=== PATIENT | female | born 1995 | race Caucasian/White ===

== ENCOUNTER 2019-09-30 12:42 | Emergency (ER) | payer OTHER, MEDICAID, SELFPAY ==
[2019-09-30 12:43] VITALS: BP 123/91; PULSE 82; RESP 16; TEMP 36.6; O2SAT 98; BMI 30.8
--- NOTE | 2019-09-30 12:50 | ED.RN ---
this rn contacted [facility] per computer inf. they state pt ,ay not require and request we call bart sierra. this rn calls no answer
--- NOTE | 2019-09-30 13:09 | ED.VIS.GEN ---
History of Present Illness Chief Complaint: Wound Informant: Patient Onset: Today Context: Sudden Onset Timing: Continuous Quality: Pain dorsal left hand over third metacarpal Location: dorsal left hand over third metacarpal Current Severity: Mild Maximum Severity: Mild Worsened by: Staple Relieved by: Nothing Associated Symptoms: No paresthesia, anesthesia motor weakness Narrative: Patient is a 24-year-old [id number] female who presents with stable dorsal surface left hand over the third metacarpal bone. This occurred at work. Tetanus was 3 years ago. She has no other complaints. Prior similar symptoms: No Recent Illness/Hospitalization: No - Past Medical History (1) No significant past medical history Status: Acute Past Medical History - Allergies and Home Meds Allergies/Adverse Reactions: Allergies fructose Adverse Reaction (Verified 09/30/19 12:47) Vomiting lactose Adverse Reaction (Verified 09/30/19 12:47) Vomiting Primary Care Physician: Chaparro Chung DO [Primary Care Provider] - Prior records reviewed: No Past Medical History: None Surgical History: no surgical history Lives: With Family Smoking Status: Never smoker Alcohol: None Drugs: None Review of Systems Musculoskeletal: Reports: Extremity Pain. Denies: Myalgias, Arthralgias, Neck pain, Back pain, Swelling Skin: Reports: Wounds. Denies: Rash, Abscess, Abrasions Neurological: Denies: Weakness, Parasthesia, Numbness Hematologic: Denies: Easy bruising, Easy bleeding Allergy: Denies: Uticaria, Swelling of the mouth Physical Exam Vital Signs/Narrative: Vital Signs Temp Pulse Resp BP Pulse Ox 09/30/19 12:43 98 F 82 16 123/91 H 98 Inital Vital Signs reviewed: Yes General: Well nourished, Well developed, No Acute Distress Head: Normocephalic, Atraumatic Eyes: Perrl, EOMI. Negative for: Pale conjunctiva ENT: Moist mucous membranes, No rhinorrhea Cardiovascular: Regular rate, Regular rhythm Respiratory: No distress Extremities: No edema, - - Staple noted dorsal surface left hand. There is no evidence of infection. She is able to extend and flex the long finger. Sensations intact. Capillary refill is intact.. Negative for: Nontender Skin: Normal color, No rash, Trauma Neurological: Alert, Oriented x3, Cranial nerves II-XII grossly intact, Normal Strength, Normal Sensation Psychological: Normal affect, Normal Mood Diagnostic/Tx/Re-eval - Medical Decision Making Patient with staple that was easily removed without difficulty. Will have wound cleansed and patient will be discharged. ED Disposition - Plan for ED Patient: Diagnosis: Foreign body of hand, left Instructions: FOREIGN BODY, Soft Tissue [Removed] Referrals: Chaparro Chung DO [Primary Care Provider] - [facility]GROUP OF PHYSICIANS] - As Needed
== END 2019-09-30 13:20 | disposition home or self-care (01) ==
PROVIDERS: Emergency Provider Emergency Medicine; Family Provider Family Medicine; PCP Family Medicine
DX: S60.552A Superficial foreign body of left hand, initial encounter (principal); W45.8XXA Other foreign body or object entering through skin, initial encounter; Y93.9 Activity, unspecified; Y92.89 Other specified places as the place of occurrence of the external cause; Y99.0 Civilian activity done for income or pay
CPT/HCPCS: 99282

== ENCOUNTER 2021-02-25 19:39 | Emergency (ER) | payer MEDICAID, SELFPAY ==
[2021-02-25 19:42] VITALS: BP 134/86; PULSE 99; RESP 18; TEMP 36.4; O2SAT 98; BMI 26.4
[2021-02-25 19:44] VITALS: BP 134/86; PULSE 94; RESP 17; O2SAT 98
[2021-02-25] MEDS: 0.9% Normal Saline 1,000 ML 1000 ML IV (20:00)
--- NOTE | 2021-02-25 20:00 | CT_ITS ---
INDICATION: abd pain, weight loss EXAMINATION: CT Abdomen And Pelvis W/ Contrast Injection TECHNIQUE: Helically acquired images were obtained of the abdomen and pelvis after IV contrast. A radiation dose optimization technique was used for this scan. IV Contrast dosage and agent: IV 100mL [id number] Oral contrast: None. COMPARISON: None. FINDINGS: Visualized lung bases: Bibasilar atelectasis. 3 mm pulmonary nodule in the right lung base. Liver: Unremarkable Gallbladder: Contracted. Spleen: Unremarkable Pancreas: Unremarkable Adrenal Glands: Unremarkable Kidneys: Unremarkable Vasculature: Unremarkable GI Tract: The appendix diameter is at the upper limits of normal measuring 6 mm. It also demonstrates subtle increased in wall enhancement. No periappendiceal fat stranding. No fluid collection or free air. Lymphadenopathy: None Peritoneum: No ascites. Bladder: Unremarkable Reproductive organs: Unremarkable Bones/Soft tissues: No suspicious osseous or soft tissue lesions CT/Abdomen/Pelvis W IV Cont ONLY IMPRESSION: Prominent appendix with subtle increase in wall enhancement and no periappendiceal inflammatory changes. These findings are equivocal for acute appendicitis. Recommend correlation with clinical findings. No free air or free fluid. No other acute findings in the abdomen or pelvis. Electronically Signed: Quan Peter MD at 22:15 EDT Tel , Service support ,
--- NOTE | 2021-02-25 20:10 | EDS_ITS ---
HPI History of Present Illness Chief Complaint: General Illness Informant: patient Onset/Context/Timing Onset: Days Context: Gradual Onset Timing: Intermittent Current Severity: Moderate Maximum Severity: Moderate Narrative Narrative: The patient is a 25-year-old female with medical history significant for bipolar disorder, GERD, and seasonal allergies who presents to the emergency department with weight loss and easy bruising. The patient states that she is noticed some increased bruising over the past month. She is scheduled to see her primary care tomorrow for follow-up. However, over the past week, she is had more bruising of her lower extremities. Today, she was having cramping abdominal pain and pain down her leg. She denies fever. She denies chills or sweats. She has had no nausea or vomiting. She does admit to mildly diminished appetite. Prior similar symptoms: No Recent Illness/Hospitalization: No PFSH PFSH Medical History Anxiety Asthma alcohol spectrum disorder GERD (gastroesophageal reflux disease) Migraines Home Medications Omeprazole [Prilosec] 40 mg PO DAILY 07/10/16 [History Last Taken 07/10/16] cetirizine [All Day Allergy] 10 mg PO DAILY 07/10/16 [History Last Taken 07/10/16] escitalopram oxalate 20 mg PO DAILY 07/10/16 [History Last Taken 07/10/16] lamotrigine 150 tab PO BID 07/10/16 [History Last Taken 07/10/16] prazosin [Minipress] 1 mg PO QHS 07/10/16 [History Last Taken 07/09/16] Fish Oil 1,000 mg Softgel 1,000 mg PO BID 07/11/16 [History Last Taken Unknown] cholecalciferol (vitamin D3) [Vitamin D] 2,000 unit PO DAILY 07/11/16 [History Last Taken Unknown] multivitamin [Daily Multiple Vitamin] 1 ea PO DAILY 07/11/16 [History Last Taken Unknown] fluoxetine 40 mg PO DAILY 02/25/21 [History Last Taken Unknown] fluticasone propionate [Flovent HFA] 1 puff INHALATION Q12H 02/25/21 [History Last Taken Unknown] levonorgestrel-ethinyl estrad 1 tab PO DAILY 02/25/21 [History Last Taken Unknown] levothyroxine 25 mcg PO DAILY 02/25/21 [History Last Taken Unknown] olanzapine [Zyprexa] 20 mg PO QHS 02/25/21 [History Last Taken Unknown] polyethylene glycol 3350 17 g PO DAILY 02/25/21 [History Last Taken Unknown] rizatriptan 5 mg PO Q2H PRN 02/25/21 [History Last Taken Unknown] Allergy/AdvReac Type Severity Reaction Status Date / Time fructose AdvReac Vomiting Verified 02/25/21 19:41 lactose AdvReac Vomiting Verified 02/25/21 19:41 Social History Smoking Status: Never smoker ROS ROS ED Constitutional Constitutional ED: Reports weight loss Eyes Eyes: Denies blurry vision or change in vision ENT ENT ED: Denies ear pain or sore throat Cardiovascular Cardiovascular: Denies chest pain or palpitations Respiratory/Chest Respiratory/Chest: Denies cough, dyspnea or dyspnea on exertion Gastrointestinal Gastrointestinal: Denies abdominal pain, nausea or vomiting Genitourinary Genitourinary ED: Denies dysuria or urinary frequency Musculoskeletal Musculoskeletal: Reports arthralgias Integumentary Reports Abrasions Neurologic Neurologic: Denies headache(s) or paresthesias Psychiatric Psychiatric: Denies anxiety or depression Endocrine Endocrinology: Denies polydipsia or polyuria Allergic/Immunologic Allergic/Immunologic ED: Denies urticaria EXAM Physical Exam Const Vital Signs: 02/25/21 19:42 02/25/21 19:44 02/25/21 19:55 Temperature 97.6 F L Temperature Source Temporal Pulse Rate 99 94 Respiratory Rate 18 17 Respiratory Effort Normal Respiratory Pattern Normal Blood Pressure 134/86 H 134/86 H Blood Pressure Mean 102 102 Pulse Ox 98 98 Oxygen Delivery Method Room Air Room Air Positive well nourished and well developed General Appearance ED: well developed HEENT Reports normocephalic, head/scalp atraumatic and moist mucous membranes Eyes PERRL and EOMs intact bilaterally Neck no lymphadenopathy and supple General: Negative for tenderness Chest Wall inspection of chest normal Resp normal respiratory effort and clear to auscultation bilaterally Cardio regular rate, regular rhythm and no murmurs GI normal to inspection, nondistended, normoactive bowel sounds Palpation: tender; Negative for guarding or rebound tenderness present Back/Spine no CVA tenderness Cervical Spine: Negative for cervical spine tenderness Thoracic Spine / Upper Back: Negative for thoracic spinal tenderness Extremity normal to inspection Extremity Narrative: Multiple ecchymotic areas over lower extremities with normal pulses. General Extremety ED: Negative for tenderness Neuro oriented x3 and CN's II-XII intact bilaterally Neuro Narrative: No focal deficits appreciated. Sensorium / Orientation: alert Psych mental status grossly normal Skin no rashes or lesions noted, no wounds and skin turgor normal MDM MDM Lab Data Labs: Laboratory Results - last 24 hr 02/25/21 02/25/21 02/25/21 20:35 20:35 20:35 WBC 8.0 RBC 4.50 Hgb 13.3 Hct 40.7 MCV 90.4 MCH 29.6 MCHC 32.7 RDW Std Deviation 40.7 RDW Coeff of Rito 12.2 Plt Count 220 MPV 9.7 Immature Gran % (Auto) 0.100 Neut % (Auto) 41.2 L Lymph % (Auto) 50.5 H Posey % (Auto) 8.2 Eos % (Auto) 0.0 Baso % (Auto) 0.0 Absolute Neuts (auto) 3.3 Absolute Lymphs (auto) 4.02 Nucleated RBC % 0 PT 12.3 INR 1.0 APTT 22.8 L Sodium 141 Potassium 3.8 Chloride 109 H Carbon Dioxide 25.0 Anion Gap 7 BUN 8 Creatinine 0.88 Estim Creat Clear Calc 75.03 Est GFR (MDRD) Af Amer 101 Est GFR (MDRD) Non-Af 84 BUN/Creatinine Ratio 9.0 L Glucose 155 H Calcium 8.2 L Total Bilirubin 0.20 AST 11 L ALT 21 Alkaline Phosphatase 51 Total Protein 6.9 Albumin 3.2 Globulin 3.7 Albumin/Globulin Ratio 0.9 Urine Color Urine Clarity Urine pH Ur Specific [place] Urine Protein Urine Glucose (UA) Urine Ketones Urine Occult Blood Urine Nitrite Urine Bilirubin Urine Urobilinogen Ur Leukocyte Esterase Urine RBC Urine WBC Ur Squamous Epith Cells Urine Bacteria Urine Mucus Urine Test 02/25/21 20:50 WBC RBC Hgb Hct MCV MCH MCHC RDW Std Deviation RDW Coeff of Rito Plt Count MPV Immature Gran % (Auto) Neut % (Auto) Lymph % (Auto) Posey % (Auto) Eos % (Auto) Baso % (Auto) Absolute Neuts (auto) Absolute Lymphs (auto) Nucleated RBC % PT INR APTT Sodium Potassium Chloride Carbon Dioxide Anion Gap BUN Creatinine Estim Creat Clear Calc Est GFR (MDRD) Af Amer Est GFR (MDRD) Non-Af BUN/Creatinine Ratio Glucose Calcium Total Bilirubin AST ALT Alkaline Phosphatase Total Protein Albumin Globulin Albumin/Globulin Ratio Urine Color Yellow Urine Clarity Sl. Cloudy Urine pH 6.5 Ur Specific [place] 1.015 Urine Protein Negative Urine Glucose (UA) Normal Urine Ketones Negative Urine Occult Blood 10 H Urine Nitrite Negative Urine Bilirubin Negative Urine Urobilinogen 1 H Ur Leukocyte Esterase 25 H Urine RBC 0 SEEN Urine WBC 0-5 SEEN Ur Squamous Epith Cells 0-5 SEEN Urine Bacteria 1+ Urine Mucus 0 SEEN Urine Test Negative Radiography Diagnostic Testing: Radiology Impression Abdomen/Pelvis CT 02/25/21 20:00 IMPRESSION: Prominent appendix with subtle increase in wall enhancement and no periappendiceal inflammatory changes. These findings are equivocal for acute appendicitis. Recommend correlation with clinical findings. No free air or free fluid. No other acute findings in the abdomen or pelvis. Electronically Signed: Quan Peter MD at 22:15 EDT Tel , Service support , Discharge Plan Triage Chief Complaint: General Illness ED Provider: Bolivar Balderas Dx/Rx/DC Orders Instructions: ED Unknown Causes of Abdominal ... Prescriptions: No Action lamotrigine 150 MG tablet 150 tab PO BID RF: 0 cetirizine [All Day Allergy (cetirizine)] 10 MG tablet 10 mg PO DAILY RF: 0 prazosin [Minipress] 2 MG capsule 1 mg PO QHS RF: 0 escitalopram oxalate 20 MG tablet 20 mg PO DAILY RF: 0 Omeprazole [Prilosec] 40 MG capsule 40 mg PO DAILY RF: 0 multivitamin [Daily Multiple] 1 EACH tablet 1 ea PO DAILY RF: 0 cholecalciferol (vitamin D3) [Vitamin D3] 1,000 UNIT tablet 2,000 unit PO DAILY RF: 0 Fish Oil 1,000 mg Softgel 1,000 mg PO BID RF: 0 fluoxetine 40 mg Capsule 40 mg PO DAILY RF: 0 polyethylene glycol 3350 17 gram Powder In Packet 17 g PO DAILY RF: 0 olanzapine [Zyprexa] 20 mg Tablet 20 mg PO QHS RF: 0 Flovent HFA 110 mcg/actuation Hfa Aerosol Inhaler 1 puff INHALATION Q12H RF: 0 rizatriptan 5 mg Tablet 5 mg PO Q2H PRN (Reason: HEADACHES) RF: 0 levonorgestrel-ethinyl estrad 90-20 mcg (28) Tablet 1 tab PO DAILY RF: 0 levothyroxine 25 mcg Capsule 25 mcg PO DAILY RF: 0 Primary Care Provider: Jerry Coles Referrals: Jerry Coles MD [Primary Care Provider] -
[2021-02-25 20:40] LABS: Absolute Lymphocyte Count 4.02 X10^3/uL (0.83-4.51); Absolute Neutrophil Count 3.3 X10^3/uL (2.0-7.7); Hematocrit 40.7 % (37-47); Hemoglobin 13.3 g/dL (12.0-15.0); Lymphocyte # 4.02 X10^3/ul (0.83-4.51); Lymphocyte % 50.5 % (19-41); Mean Corp Hgb Conc 32.7 g/dL (32-36); Mean Corpuscular Hgb 29.6 pg (27.0-32.0); Mean Corpuscular Volume 90.4 fL (81-99); Mean Platelet Vol. 9.7 fl (6.2-12.0); Monocyte# 0.65 X10^3/uL; Monocyte% 8.2 % (0-10); NRBC Flagged by Analyzer 0 % (0-5); Neutrophil # 3.28 X10^3/uL (2.7-7.7); Neutrophil % 41.2 % (47-70); Platelet Count 220 K/mm3 (150-450); RBC Distribution Width CV 12.2 % (11.6-14.6); RBC Distribution Width SD 40.7 fl (35.1-43.9)
[2021-02-25 20:47] LABS: Prothrombin Time (Protime)PT. 12.3 SECONDS (11.7-14.9)
[2021-02-25 20:48] LABS: Partial Thromboplast Time 22.8 Seconds (24.1-36.2)
[2021-02-25 20:57] LABS: Mucous, Urine 0 SEEN /hpf (<or=2+); Red Blood Cells-Urine 0 SEEN /hpf (0-5)
[2021-02-25 21:09] LABS: Color, Urine Yellow (Yellow); Glucose, Dipstick Normal (Normal); Ketone-Dipstick Negative (Negative); Leukocyte Esterase-Dipstick 25 /ul (Negative); Nitrite-Dipstick Negative (Negative); Occult Blood-Urine 10 /ul (Negative); Protein-Dipstick Negative (Negative); Specific Gravity, Urine 1.015 (1.002-1.030); Urine Bilirubin Dipstick Negative (Negative); Urine Clarity Sl. Cloudy (Clear); Urine Urobilinogen 1 mg/dl (Normal); Urine pH 6.5 (5.0 - 8.0)
[2021-02-25 21:12] LABS: ALB/GLOB Ratio 0.9 RATIO (0.9-2.4); AST(SGOT) 11 U/L (15-37); Alanine Aminotransfer ALT/SGPT 21 U/L (13-56); Albumin, Serum 3.2 g/dL (3.2-5.0); Alkaline Phosphatase 51 U/L (45-117); Anion Gap 7 (5-15); BUN 8 mg/dL (7-18); Calcium,Total 8.2 mg/dL (8.5-10.1); Chloride 109 mmol/L (98-107); Creatinine, Serum 0.88 mg/dL (0.55-1.02); EST Glomerular Filtration Rate 84 mL/min (>60); Est Glom Filt Rate - Afr Amer 101 mL/min (>60); Estimated Creatinine Clearance 75.03 ml/min; Globulin 3.7 g/dL (2.2-4.2); Glucose 155 mg/dL (74-106); Potassium 3.8 mmol/L (3.5-5.1); Protein, Total 6.9 g/dL (6.4-8.2); Sodium Level 141 mmol/L (136-145)
[2021-02-25 21:35] LABS: Bacteria 1+ /hpf (None Seen); Squamous Epithelial Cells - UA 0-5 SEEN /hpf (5-10); White Blood Cells 0-5 SEEN /hpf (0-5)
[2021-02-25 21:36] LABS: Internal QC Validated? YES +Cl - CLEAR BKGD; Pregnancy, Urine Negative Negative
[2021-02-25 23:09] VITALS: RESP 16
== END 2021-02-25 23:10 | disposition home or self-care (01) ==
PROVIDERS: Emergency Provider Emergency Medicine; PCP Family Medicine
DX: L53.9 Erythematous condition, unspecified (principal); F31.9 Bipolar disorder, unspecified; F41.9 Anxiety disorder, unspecified; J45.909 Unspecified asthma, uncomplicated; K21.9 Gastro-esophageal reflux disease without esophagitis; Z79.3 Long term (current) use of hormonal contraceptives; Z79.51 Long term (current) use of inhaled steroids; Z79.899 Other long term (current) drug therapy
CPT/HCPCS: 74177; 80053; 81001; 81025; 85025; 85610; 85730; 99284; J7030; Q9967; A4216

== ENCOUNTER 2021-07-28 18:05 | Emergency (ER) | payer MEDICAID, SELFPAY ==
[2021-07-28 18:06] VITALS: BP 121/96; PULSE 108; RESP 16; TEMP 36.4; O2SAT 97; BMI 24.9
--- NOTE | 2021-07-28 18:36 | EDS_ITS ---
HPI History of Present Illness Chief Complaint: Suicidal Informant: patient Onset/Context/Timing Onset: Today and Hours Current Severity: Mild Maximum Severity: Mild Narrative Narrative: 26-year-old special needs patient with a history of anxiety, depression, ADHD, bipolar and reactive attachment disorder. She has been hospitalized in different psychiatric facilities in the past. She lives with family and home her biological mom and her stepdad. Also siblings. She states she has been more depressed. She has been getting in arguments with people at home. Today argument ensued at home. Patient ran away from home. Police were called. She states that she was suicidal but made no obvious attempts. She denies overdose. She is a cutter but denies any significant lacerations. And she was brought to the emergency department. She does not feel safe going home and think she needs to be admitted. Prior similar symptoms: Yes Recent Illness/Hospitalization: No PFSH [facility] Medical History ADHD Anxiety Asthma Bipolar 1 disorder alcohol spectrum disorder GERD (gastroesophageal reflux disease) History of reactive attachment disorder Migraines Reactive hypoglycemia Home Medications Omeprazole [Prilosec] 40 mg PO DAILY 07/10/16 [History Last Taken 07/10/16] cetirizine [All Day Allergy] 10 mg PO DAILY 07/10/16 [History Last Taken 07/10/16] escitalopram oxalate 20 mg PO DAILY 07/10/16 [History Last Taken 07/10/16] lamotrigine 150 tab PO BID 07/10/16 [History Last Taken 07/10/16] prazosin [Minipress] 1 mg PO QHS 07/10/16 [History Last Taken 07/09/16] Fish Oil 1,000 mg Softgel 1,000 mg PO BID 07/11/16 [History Last Taken Unknown] cholecalciferol (vitamin D3) [Vitamin D] 2,000 unit PO DAILY 07/11/16 [History Last Taken Unknown] multivitamin [Daily Multiple Vitamin] 1 ea PO DAILY 07/11/16 [History Last Taken Unknown] fluoxetine 40 mg PO DAILY 02/25/21 [History Last Taken Unknown] fluticasone propionate [Flovent HFA] 1 puff INHALATION Q12H 02/25/21 [History Last Taken Unknown] levonorgestrel-ethinyl estrad 1 tab PO DAILY 02/25/21 [History Last Taken Unknown] levothyroxine 25 mcg PO DAILY 02/25/21 [History Last Taken Unknown] olanzapine [Zyprexa] 20 mg PO QHS 02/25/21 [History Last Taken Unknown] polyethylene glycol 3350 17 g PO DAILY 02/25/21 [History Last Taken Unknown] rizatriptan 5 mg PO Q2H PRN 02/25/21 [History Last Taken Unknown] Allergy/AdvReac Type Severity Reaction Status Date / Time fructose AdvReac Vomiting Verified 02/25/21 19:41 lactose AdvReac Vomiting Verified 02/25/21 19:41 Social History Smoking Status: Never smoker ROS ROS ED ROS Narrative Denies recent illness. Review of Systems ROS Unobtainable: Denies due to encephalopathy Constitutional Constitutional ED: Denies anorexia Eyes Eyes: Denies blindness ENT ENT ED: Denies change in voice Cardiovascular Cardiovascular: Denies abdominal pain Respiratory/Chest Respiratory/Chest: Denies chest congestion or chest tightness Gastrointestinal Gastrointestinal: Denies abdominal pain Genitourinary Genitourinary ED: Denies abdominal discomfort or burning urination Musculoskeletal Musculoskeletal: Denies back pain or difficulty walking Integumentary Denies change in hair Neurologic Neurologic: Denies abnormal movements or abnormal speech Psychiatric Psychiatric: Denies auditory hallucinations Endocrine Endocrinology: Reports none; Denies cold intolerance Hematologic/Lymphatic Hematologic/Lymphatic: Denies anemia, easy bleeding or easy bruising Allergic/Immunologic Allergic/Immunologic ED: Denies lip swelling or mouth swelling EXAM Physical Exam Narrative Exam Narrative: 26-year-old female reportedly suicidal. Vital signs stable afebrile. Exam benign. No significant injuries. Medically cleared. Heart lung abdominal exams are unremarkable. Const Vital Signs: 07/28/21 18:06 Temperature 97.6 F L Temperature Source Temporal Pulse Rate 108 H Respiratory Rate 16 Blood Pressure 121/96 H Blood Pressure Mean 104 Pulse Ox 97 Oxygen Delivery Method Room Air Positive well nourished, well developed, alert, oriented x3, no apparent distress, average body habitus, no limitations and healthy appearing; Negative for cachectic, contractures or unkempt General Appearance ED: well developed; Negative for unkempt, cachectic or contractures Nutritional Appearance: Negative for cachectic HEENT Reports normocephalic, head/scalp atraumatic and moist mucous membranes Eyes PERRL, EOMs intact bilaterally, conjunctivae normal and no scleral icterus Neck full ROM, nuchal rigidity, no lymphadenopathy, supple, no meningeal signs, no JVD, No thyroid normal and No nodes Lymph Lymphatic: no lymphadenopathy noted and no lymphedema noted; Negative for lymphedema or lymphadenopathy Chest Wall inspection of chest normal and palpation of chest normal Resp normal respiratory effort, normal air movement, no retractions and no use of accessory muscles Cardio regular rate, regular rhythm, S1 normal heart sound, S2 normal heart sound, no murmurs, no rub, no gallops, no clicks and no JVD Back/Spine no CVA tenderness, normal ROM, normal to inspection, thoracic and lumbar spine normal to inspection and no thoracic nor lumbar tenderness Extremity normal to inspection, full ROM, normal capillary refill and no joint enlargement Neuro oriented x3, CN's II-XII intact bilaterally, moves all extremities, no focal motor deficits and no sensory deficits noted Psych mental status grossly normal, cooperative, affect normal, speech normal, activity/motor behavior normal and denies hallucinations; Negative for denies suicidal ideation Appearance: grossly normal, appropriate and well kempt; Negative for unkempt Attitude: calm, engaged and No paranoid Skin no rashes or lesions noted, no wounds, no jaundice and no petechiae MDM MDM MDM Narrative Medical decision making narrative: 26-year-old special needs female with history of bipolar disorder. Not suicidal. Right away from home tonight. Cannot contract for safety. She is medically cleared. Screening labs are being obtained for the mental health. She is being evaluated by our director of social services. Lab Data Attestation: I reviewed the patient's lab results. Lab results narrative: CBC shows a white count of 7. Hemoglobin 15. Chemistries unremarkable gap is 7 normal BUN and creatinine. Glucose 98. Tox screen negative. Alcohol negative. negative. Labs: Laboratory Results - last 24 hr 07/28/21 07/28/21 07/28/21 18:47 18:50 18:50 WBC 7.1 RBC 5.17 Hgb 15.1 H Hct 46.7 MCV 90.3 MCH 29.2 MCHC 32.3 RDW Std Deviation 41.1 RDW Coeff of Rito 12.3 Plt Count 237 MPV 9.5 Immature Gran % (Auto) 0.100 Neut % (Auto) 58.6 Lymph % (Auto) 34.6 [place] % (Auto) 6.6 Eos % (Auto) 0.0 Baso % (Auto) 0.1 Absolute Neuts (auto) 4.2 Absolute Lymphs (auto) 2.45 Nucleated RBC % 0 Sodium 141 Potassium 4.1 Chloride 107 Carbon Dioxide 27.0 Anion Gap 7 BUN 14 Creatinine 0.87 Estim Creat Clear Calc 75.24 Est GFR (MDRD) Af Amer 103 Est GFR (MDRD) Non-Af 85 BUN/Creatinine Ratio 16.2 Glucose 98 Calcium 9.4 Serum , Qual Urine Opiates Screen NEGATIVE Urine Methadone Screen NEGATIVE Ur Barbiturates Screen NEGATIVE Ur Phencyclidine Scrn NEGATIVE Ur Amphetamines Screen NEGATIVE U Methamphetamin-MDMA NEGATIVE U Benzodiazepines Scrn NEGATIVE Urine Cocaine Screen NEGATIVE U Cannabinoids Screen NEGATIVE Ur Drug Screen Comment Ethyl Alcohol 07/28/21 07/28/21 18:50 18:50 WBC RBC Hgb Hct MCV MCH MCHC RDW Std Deviation RDW Coeff of Rito Plt Count MPV Immature Gran % (Auto) Neut % (Auto) Lymph % (Auto) [place] % (Auto) Eos % (Auto) Baso % (Auto) Absolute Neuts (auto) Absolute Lymphs (auto) Nucleated RBC % Sodium Potassium Chloride Carbon Dioxide Anion Gap BUN Creatinine Estim Creat Clear Calc Est GFR (MDRD) Af Amer Est GFR (MDRD) Non-Af BUN/Creatinine Ratio Glucose Calcium Serum , Qual NEGATIVE Urine Opiates Screen Urine Methadone Screen Ur Barbiturates Screen Ur Phencyclidine Scrn Ur Amphetamines Screen U Methamphetamin-MDMA U Benzodiazepines Scrn Urine Cocaine Screen U Cannabinoids Screen Ur Drug Screen Comment Ethyl Alcohol 7.0 Discharge Plan Triage Chief Complaint: Suicidal ED Provider: Panda Osei Dx/Rx/DC Orders Clinical Impression: Suicidal ideation, Depression, History of bipolar disorder Prescriptions: No Action lamotrigine 150 MG tablet 150 tab PO BID RF: 0 cetirizine [All Day Allergy (cetirizine)] 10 MG tablet 10 mg PO DAILY RF: 0 prazosin [Minipress] 2 MG capsule 1 mg PO QHS RF: 0 escitalopram oxalate 20 MG tablet 20 mg PO DAILY RF: 0 Omeprazole [Prilosec] 40 MG capsule 40 mg PO DAILY RF: 0 multivitamin [Daily Multiple] 1 EACH tablet 1 ea PO DAILY RF: 0 cholecalciferol (vitamin D3) [Vitamin D3] 1,000 UNIT tablet 2,000 unit PO DAILY RF: 0 Fish Oil 1,000 mg Softgel 1,000 mg PO BID RF: 0 fluoxetine 40 mg Capsule 40 mg PO DAILY RF: 0 polyethylene glycol 3350 17 gram Powder In Packet 17 g PO DAILY RF: 0 olanzapine [Zyprexa] 20 mg Tablet 20 mg PO QHS RF: 0 Flovent HFA 110 mcg/actuation Hfa Aerosol Inhaler 1 puff INHALATION Q12H RF: 0 rizatriptan 5 mg Tablet 5 mg PO Q2H PRN (Reason: HEADACHES) RF: 0 levonorgestrel-ethinyl estrad 90-20 mcg (28) Tablet 1 tab PO DAILY RF: 0 levothyroxine 25 mcg Capsule 25 mcg PO DAILY RF: 0 Primary Care Provider: Jerry Coles Referrals: Jerry Coles MD [Primary Care Provider] - Disposition Disposition: Psychiatric Hospital or Unit
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
--- NOTE | 2021-07-28 19:08 | CM.ED ---
SOCIAL WORK Discussed case with Dr. Osei. Recommended discontinuation of sitter protocol at this time. Patient requesting hospitalization, denies plan to harm self.
[2021-07-28 19:17] LABS: Absolute Lymphocyte Count 2.45 X10^3/uL (0.83-4.51); Absolute Neutrophil Count 4.2 X10^3/uL (2.0-7.7); Basophil# 0.01 X10^3/uL; Basophil% 0.1 % (0-1); Hematocrit 46.7 % (37-47); Hemoglobin 15.1 g/dL (12.0-15.0); Lymphocyte # 2.45 X10^3/ul (0.83-4.51); Lymphocyte % 34.6 % (19-41); Mean Corp Hgb Conc 32.3 g/dL (32-36); Mean Corpuscular Hgb 29.2 pg (27.0-32.0); Mean Corpuscular Volume 90.3 fL (81-99); Mean Platelet Vol. 9.5 fl (6.2-12.0); Monocyte# 0.47 X10^3/uL; Monocyte% 6.6 % (0-10); NRBC Flagged by Analyzer 0 % (0-5); Neutrophil # 4.15 X10^3/uL (2.7-7.7); Neutrophil % 58.6 % (47-70); Platelet Count 237 K/mm3 (150-450); RBC Distribution Width CV 12.3 % (11.6-14.6); RBC Distribution Width SD 41.1 fl (35.1-43.9); Red Blood Count 5.17 M/mm3 (4.2-5.4); White Blood Count 7.1 K/mm3 (4.4-11.0)
--- NOTE | 2021-07-28 19:35 | CM.ED ---
Addendum entered by Pavithra Anthony 07/28/21 19:46: Patient does have legal guardian, Heaven Marquez. Call to Heaven who is in agreement with hospitalization. Referral faxed to [facility] Pending review at this time. Original Note: SOCIAL WORK Call to [facility], spoke with Tom, unable to accept patient due to insurance. Call to [facility], no beds available. Call to [facility], left voicemail for intake. Call to [facility], spoke with charge nurse who reports does have beds and will review referral once medically cleared. Chencho Anthony, UNIT TECHNICIAN, TRANSACTION MANAGER
[2021-07-28 19:37] LABS: Internal QC Validated? YES +Cl - CLEAR BKGD; Pregnancy, Serum, hCG Quali. NEGATIVE Negative
[2021-07-28 19:38] LABS: Anion Gap 7 (5-15); BUN 14 mg/dL (7-18); BUN/Creat Ratio 16.2 RATIO (10-20); Calcium,Total 9.4 mg/dL (8.5-10.1); Chloride 107 mmol/L (98-107); Creatinine, Serum 0.87 mg/dL (0.55-1.02); EST Glomerular Filtration Rate 85 mL/min (>60); Est Glom Filt Rate - Afr Amer 103 mL/min (>60); Estimated Creatinine Clearance 75.24 ml/min; Glucose 98 mg/dL (74-106); Potassium 4.1 mmol/L (3.5-5.1); Sodium Level 141 mmol/L (136-145)
[2021-07-28 19:46] LABS: Amphetamine Urine VISTA NEGATIVE (<1000 ng/mL); Barbiturate Urine VISTA NEGATIVE (< 200 ng/mL); Benzodiazepine Urine VISTA NEGATIVE (< 200 ng/mL); Cocaine Urine VISTA NEGATIVE (< 300 ng/mL); Ecstacy Urine VISTA NEGATIVE (< 500 ng/mL); Methadone Urine VISTA NEGATIVE (< 300 ng/mL); PCP Urine VISTA NEGATIVE (< 25 ng/mL); THC Urine VISTA NEGATIVE (< 50 ng/mL); Vista UDS pH Range 5
[2021-07-28 20:05] VITALS: RESP 15
--- NOTE | 2021-07-28 20:40 | CM.ED ---
SOCIAL WORK Call to [facility] to check on status of referral. Charge nurse reviewing at this time and will get back to this worker. Chencho Anthony, MANAGER PLANNING, PLATEN GRINDER
[2021-07-28 21:00] VITALS: RESP 15
--- NOTE | 2021-07-28 22:05 | CM.ED ---
SOCIAL WORK Call from Brianna with [facility]. Brianna with questions regarding referral. All questions answered. Brianna to review with provider and get back to this worker. Chencho Anthony, MOVIE MACHINE OPERATOR, STRUCTURAL DRAFTER
--- NOTE | 2021-07-28 22:32 | CM.ED ---
SOCIAL WORK Patient has been accepted to [facility] by Dr. Leal. Per Brianna, patient unable to transfer until morning. [facility] reports staff will call in the morning when transportation can be arranged. [facility] states unable to accept patient tonight as SW's are no longer on staff and unable to update bed board with patient's information. [facility] faxed over voluntary form for completion. Form completed and faxed back to [facility]. Patient's mother/legal guardian updated and in agreement with plan. Verbal consent received for transfer. Patient updated. Plan: [facility], unable to discharge until morning. [facility] will call when transport can be arranged after 8am. Chencho Anthony, BANQUET STEWARD, SPARK PLUG ASSEMBLER
[2021-07-29] VITALS (9 sets, daily range): BP systolic 114–127; BP diastolic 97–98; PULSE 84–99; RESP 14–18; TEMP 36.9; O2SAT 96–99
[2021-07-29] MEDS: OLANZapine 10 MG Tablet 20 MG PO (00:17)
[2021-07-29] MEDS: lamoTRIgine 150 MG Tablet PO ×2 (00:18→09:39)
[2021-07-29] MEDS: Doxazosin 1 MG Tablet PO (00:18)
[2021-07-29] MEDS: Escitalopram Oxalate 20 MG Tablet PO (09:38)
[2021-07-29] MEDS: Multivitamins,Therapeutic Tablet 1 TABLET PO (09:38)
[2021-07-29] MEDS: Cholecalciferol (VIT D3) 25 MCG TABLET (1,000 UNITS) 50 MCG PO (09:38)
[2021-07-29] MEDS: Levothyroxine 25 MCG TABLET PO (09:39)
== END 2021-07-29 10:33 ==
PROVIDERS: Emergency Provider Emergency Medicine; PCP Family Medicine
DX: R45.851 Suicidal ideations (principal); F31.9 Bipolar disorder, unspecified; K21.9 Gastro-esophageal reflux disease without esophagitis; F41.9 Anxiety disorder, unspecified; J45.909 Unspecified asthma, uncomplicated; Z79.51 Long term (current) use of inhaled steroids; Z79.899 Other long term (current) drug therapy
CPT/HCPCS: 80048; 80307; 82077; 84703; 85025; 87426; 99285

== ENCOUNTER 2022-09-16 18:40 | Emergency (ER) | payer MEDICAID, SELFPAY ==
[2022-09-16 18:41] VITALS: BP 133/94; PULSE 81; RESP 16; TEMP 35.9; O2SAT 100; BMI 26.5
[2022-09-16 19:17] LABS: Mucous, Urine 0 SEEN /hpf (<or=2+); Red Blood Cells-Urine 0 SEEN /hpf (0-5)
[2022-09-16 19:22] LABS: Color, Urine Yellow (Yellow); Glucose, Dipstick Normal (Normal); Ketone-Dipstick Negative (Negative); Leukocyte Esterase-Dipstick 25 /ul (Negative); Nitrite-Dipstick Negative (Negative); Occult Blood-Urine 150 /ul (Negative); Protein-Dipstick Negative (Negative); Urine Bilirubin Dipstick Negative (Negative); Urine Clarity Clear (Clear); Urine Urobilinogen Normal (Normal)
[2022-09-16 19:32] LABS: Bacteria 1+ /hpf (None Seen); Squamous Epithelial Cells - UA 0-5 SEEN /hpf (5-10); White Blood Cells 0-5 SEEN /hpf (0-5)
--- NOTE | 2022-09-16 20:01 | ED.VIS.FEGU ---
HPI HPI - Female History of Present Illness Chief Complaint: Complaint Narrative Narrative: 27-year-old female presenting with urinary symptoms. She states she has suprapubic pressure and today in workshop she lost urine. When she was younger she had urinary reflux. She had some sort of procedure to help this. She states that she lost her urine like this 2 months ago and had a urinalysis and it was -2. She does not have a urology follow-up. She denies nausea, vomiting, fever, chills. She denies constipation or diarrhea. [facility] Medical History ADHD Anxiety Asthma Bipolar 1 disorder alcohol spectrum disorder GERD (gastroesophageal reflux disease) History of reactive attachment disorder Migraines Reactive hypoglycemia Home Medications Omeprazole [Prilosec] 40 mg PO DAILY 07/10/16 [History Last Taken 07/10/16] cetirizine 10 mg tablet (All Day Allergy (cetirizine)) 10 mg PO DAILY 07/10/16 [History Last Taken 07/10/16] lamotrigine 150 mg tablet 200 tab PO BID 07/10/16 [History Last Taken 07/10/16] prazosin 2 mg capsule (Minipress) 1 mg PO QHS 07/10/16 [History Last Taken 07/09/16] Fish Oil 1,000 mg Softgel 1,000 mg PO BID 07/11/16 [History Last Taken Unknown] cholecalciferol (vitamin D3) 25 mcg (1,000 unit) tablet (Vitamin D3) 2,000 unit PO DAILY 07/11/16 [History Last Taken Unknown] multivitamin (Daily Multiple tablet) 1 ea PO DAILY 07/11/16 [History Last Taken Unknown] fluoxetine 40 mg capsule 10 mg PO TID 02/25/21 [History Last Taken Unknown] fluticasone propionate 110 mcg/actuation HFA aerosol inhaler (Flovent HFA) 1 puff inhalation Q12H 02/25/21 [History Last Taken Unknown] levonorgestrel-ethinyl estradiol 90 mcg-20 mcg (28) tablet 1 tab PO DAILY 02/25/21 [History Last Taken Unknown] levothyroxine 25 mcg capsule 25 mcg PO DAILY 02/25/21 [History Last Taken Unknown] olanzapine 20 mg tablet (Zyprexa) 25 mg PO QHS 02/25/21 [History Last Taken Unknown] polyethylene glycol 3350 17 gram oral powder packet 17 g PO DAILY 02/25/21 [History Last Taken Unknown] rizatriptan 5 mg tablet 5 mg PO Q2H PRN HEADACHES 02/25/21 [History Last Taken Unknown] famotidine 20 mg tablet 20 mg PO BID 09/16/22 [History Last Taken Unknown] Allergy/AdvReac Type Severity Reaction Status Date / Time fructose AdvReac Vomiting Verified 09/16/22 18:41 lactose AdvReac Vomiting Verified 09/16/22 18:41 Social History Smoking Status: Never smoker ROS ROS ED Constitutional Constitutional ED: Denies chills, fever(s) or sweats Eyes Eyes: Denies blurry vision or change in vision ENT ENT ED: Denies ear pain or sore throat Cardiovascular Cardiovascular: Denies chest pain, palpitations or racing heartbeat Respiratory/Chest Respiratory/Chest: Denies cough, dyspnea or sputum Gastrointestinal Gastrointestinal: Reports other Details: Suprapubic pressure ; Denies constipation, diarrhea, nausea or vomiting Genitourinary Genitourinary ED: Reports hematuria and other Details: Urinary incontinence ; Denies dysuria Musculoskeletal Musculoskeletal: Denies arthralgias, myalgias or neck pain Integumentary Denies abscess, Abrasions or rash Neurologic Neurologic: Denies headache(s), paresthesias or weakness Psychiatric Psychiatric: Denies anxiety, depression, suicidal ideation or suicidal thoughts Endocrine Endocrinology: Denies polydipsia or polyuria EXAM Physical Exam Const Vital Signs: 09/16/22 18:41 Temperature 96.6 F L Temperature Source Temporal Pulse Rate 81 Respiratory Rate 16 Blood Pressure 133/94 H Blood Pressure Mean 107 Pulse Ox 100 Oxygen Delivery Method Room Air General Appearance ED: Negative for pallor HEENT Reports normocephalic, head/scalp atraumatic and moist mucous membranes Eyes PERRL and EOMs intact bilaterally Neck no lymphadenopathy and supple Chest Wall inspection of chest normal and palpation of chest normal Resp normal respiratory effort and clear to auscultation bilaterally Auscultation: Negative for rales, rhonchi or wheezes Cardio regular rate and regular rhythm GI non-distended GI Narrative: Mild suprapubic pressure. Auscultation: normoactive bowel sounds Palpation: soft; Negative for guarding, rigid, hepatomegaly or splenomegaly Narrative: Deferred Back/Spine no CVA tenderness Extremity normal to inspection General Extremety ED: Yes edema and tenderness General Extremity: edema Neuro oriented x3 and CN's II-XII intact bilaterally Sensorium / Orientation: alert Motor Exam: strength 5/5 throughout Psych mental status grossly normal Attitude: No agitated Skin no rashes or lesions noted and no wounds General Skin Exam: Negative for jaundice or pallor MDM MDM MDM Narrative Medical decision making narrative: Patient presenting with suprapubic pressure and incontinence. She complains of hematuria. Urinalysis obtained and shows occult blood. hCG negative she has no CVA tenderness. Abdominal exam is benign. Vital signs are stable and she is afebrile. She and her mother state that she had a similar episode a few months ago and a urinalysis was negative then. She is done well since that time. I do not believe she needs blood work or imaging currently. I think she will need follow-up with urology. Impression: 1. Urinary incontinence 2. Hematuria Lab Data Attestation: I reviewed the patient's lab results. Labs: Laboratory Results - last 24 hr 09/16/22 19:00 Urine Color Yellow Urine Clarity Clear Urine pH 7.0 Ur Specific [place] 1.010 Urine Protein Negative Urine Glucose (UA) Normal Urine Ketones Negative Urine Occult Blood 150 H Urine Nitrite Negative Urine Bilirubin Negative Urine Urobilinogen Normal Ur Leukocyte Esterase 25 H Urine RBC 0 SEEN Urine WBC 0-5 SEEN Ur Squamous Epith Cells 0-5 SEEN Urine Bacteria 1+ Urine Mucus 0 SEEN Urine Test Negative Discharge Plan Triage Chief Complaint: Complaint ED Provider: Segun Joshi Dx/Rx/DC Orders Prescriptions: No Action lamotrigine 150 MG tablet 200 tab PO BID cetirizine [All Day Allergy (cetirizine)] 10 MG tablet 10 mg PO DAILY prazosin [Minipress] 2 MG capsule 1 mg PO QHS Omeprazole [Prilosec] 40 MG capsule 40 mg PO DAILY multivitamin [Daily Multiple] 1 EACH tablet 1 ea PO DAILY cholecalciferol (vitamin D3) [Vitamin D3] 1,000 UNIT tablet 2,000 unit PO DAILY Fish Oil 1,000 mg Softgel 1,000 mg PO BID fluoxetine 40 mg Capsule 10 mg PO TID polyethylene glycol 3350 17 gram Powder In Packet 17 g PO DAILY olanzapine [Zyprexa] 20 mg Tablet 25 mg PO QHS fluticasone propionate [Flovent HFA] 110 mcg/actuation Hfa Aerosol Inhaler 1 puff INHALATION Q12H rizatriptan 5 mg Tablet 5 mg PO Q2H PRN (Reason: HEADACHES) levonorgestrel-ethinyl estrad 90-20 mcg (28) Tablet 1 tab PO DAILY levothyroxine 25 mcg Capsule 25 mcg PO DAILY famotidine 20 mg Tablet 20 mg PO BID Primary Care Provider: Jerry Coles Referrals: Jerry Coles MD [Primary Care Provider] - Marisol Lockett MD [Med Staff - Active Staff] - 3-5 Days Disposition Disposition: Home, Self Care
[2022-09-16 21:05] LABS: Internal QC Validated? YES +Cl - CLEAR BKGD; Pregnancy, Urine Negative Negative
== END 2022-09-16 21:44 | disposition home or self-care (01) ==
PROVIDERS: Emergency Provider Student in an Organized Health Care Education/Training Program; PCP Family Medicine; Visit Provider Student in an Organized Health Care Education/Training Program
DX: R31.9 Hematuria, unspecified (principal); F31.9 Bipolar disorder, unspecified; R32 Unspecified urinary incontinence; N13.9 Obstructive and reflux uropathy, unspecified; F90.9 Attention-deficit hyperactivity disorder, unspecified type
CPT/HCPCS: 81001; 81025; 99282

== ENCOUNTER → 2022-10-24 | Outpatient (CLI) | payer MEDICAID, SELFPAY ==
[2022-10-24 12:07] LABS: Hematocrit 42.6 % (37-47); Hemoglobin 13.8 g/dL (12.0-15.0); Mean Corp Hgb Conc 32.4 g/dL (32-36); Mean Corpuscular Hgb 28.9 pg (27.0-32.0); Mean Corpuscular Volume 89.1 fL (81-99); Mean Platelet Vol. 9.7 fl (6.2-12.0); Platelet Count 211 K/mm3 (150-450); RBC Distribution Width CV 12.5 % (11.6-14.6); RBC Distribution Width SD 40.9 fl (35.1-43.9); Red Blood Count 4.78 M/mm3 (4.2-5.4); White Blood Count 5.4 K/mm3 (4.4-11.0)
[2022-10-24 12:21] LABS: Vitamin B12 642 pg/mL (211-911)
[2022-10-24 13:18] LABS: T4 Free Direct 0.97 ng/dL (0.76-1.46); Thyroid Stim Hormone (TSH) 3.57 uIU/mL (0.358-3.74)
--- NOTE | 2022-10-24 14:22 | US_ITS ---
INDICATION: UTI HEMATURIA EXAMINATION: Ultrasound US Kidney(s) complete (eg, kidneys and bladder) TECHNIQUE: Doherty scale and color doppler images were obtained of the kidneys. COMPARISON: None. FINDINGS: RIGHT KIDNEY: 8.4 x 3.9 x 3.3 cm. There is no hydronephrosis. No shadowing calculus, focal lesion or perinephric collection is demonstrated. LEFT KIDNEY: 9.9 x 4.8 x 4.1 cm. There is no hydronephrosis. No shadowing calculus, focal lesion or perinephric collection is demonstrated. URINARY BLADDER: No acute abnormality. US/Kidney and Bladder IMPRESSION: Negative renal ultrasound CT may be useful for further assessment if clinically warranted. Electronically Signed: Douglas Jewell MD at 22:23 EST ,
[2022-10-27 00:07] LABS: Vitamin B1, Thiamine 202.6 nmol/L (66.5-200.0)
[2022-10-28 20:33] LABS: Lamotrigine (Lamictal) Level 5.3 ug/mL (2.0-20.0)
== END | disposition home or self-care (01) ==
LOC: MTLAB 14:21
PROVIDERS: PCP Family Medicine; Referring Provider Psychiatry & Neurology Neurology; Visit Provider Psychiatry & Neurology Neurology
DX: N39.0 Urinary tract infection, site not specified (principal); G40.909 Epilepsy, unspecified, not intractable, without status epilepticus; R31.9 Hematuria, unspecified; F81.9 Developmental disorder of scholastic skills, unspecified; F82 Specific developmental disorder of motor function
CPT/HCPCS: 36415; 76770; 82140; 82542; 82607; 82746; 83735; 84425; 84439; 84443; 85027

== ENCOUNTER → 2022-10-25 | Outpatient (CLI) | payer MEDICAID, SELFPAY ==
--- NOTE | 2022-10-25 10:14 | TELEMED_ITS ---
SOC Telemed has confirmed receipt of a request for visit. This document confirms receipt of the order initiating the consult. To find the results of the consultation, please view the patient's reports for the scanned Telemed Consult.
== END | disposition home or self-care (01) ==
LOC: PSN 08:25
PROVIDERS: PCP Family Medicine; Visit Provider Psychiatry & Neurology Neurology
DX: G40.909 Epilepsy, unspecified, not intractable, without status epilepticus (principal)
CPT/HCPCS: 95819

== ENCOUNTER 2022-10-28 18:07 | Emergency (ER) | payer MEDICAID, SELFPAY ==
[2022-10-28 18:09] VITALS: BP 130/100; PULSE 79; RESP 17; TEMP 36.6; O2SAT 99; BMI 27.6
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
[2022-10-28 19:19] VITALS: RESP 17
[2022-10-28 19:19] LABS: Absolute Lymphocyte Count 2.02 X10^3/uL (0.83-4.51); Absolute Neutrophil Count 5.7 X10^3/uL (2.0-7.7); Hematocrit 40.9 % (37-47); Hemoglobin 13.3 g/dL (12.0-15.0); Lymphocyte # 2.02 X10^3/ul (0.83-4.51); Lymphocyte % 24.3 % (19-41); Mean Corp Hgb Conc 32.5 g/dL (32-36); Mean Corpuscular Hgb 28.7 pg (27.0-32.0); Mean Corpuscular Volume 88.3 fL (81-99); Mean Platelet Vol. 9.5 fl (6.2-12.0); Monocyte# 0.58 X10^3/uL; NRBC Flagged by Analyzer 0 % (0-5); Neutrophil # 5.67 X10^3/uL (2.7-7.7); Neutrophil % 68.3 % (47-70); Platelet Count 194 K/mm3 (150-450); RBC Distribution Width CV 12.7 % (11.6-14.6); Red Blood Count 4.63 M/mm3 (4.2-5.4); White Blood Count 8.3 K/mm3 (4.4-11.0)
[2022-10-28 19:33] LABS: Amphetamine Urine VISTA NEGATIVE (<1000 ng/mL); Anion Gap 4 (5-15); BUN 11 mg/dL (7-18); BUN/Creat Ratio 13.3 RATIO (10-20); Barbiturate Urine VISTA NEGATIVE (< 200 ng/mL); Benzodiazepine Urine VISTA NEGATIVE (< 200 ng/mL); Chloride 106 mmol/L (98-107); Cocaine Urine VISTA NEGATIVE (< 300 ng/mL); Creatinine, Serum 0.83 mg/dL (0.55-1.02); EST Glomerular Filtration Rate 89 mL/min (>60); Ecstacy Urine VISTA NEGATIVE (< 500 ng/mL); Est Glom Filt Rate - Afr Amer 107 mL/min (>60); Estimated Creatinine Clearance 78.19 ml/min; Glucose 93 mg/dL (74-106); Methadone Urine VISTA NEGATIVE (< 300 ng/mL); PCP Urine VISTA NEGATIVE (< 25 ng/mL); Potassium 4.2 mmol/L (3.5-5.1); Sodium Level 139 mmol/L (136-145); THC Urine VISTA NEGATIVE (< 50 ng/mL); Vista UDS pH Range 6
[2022-10-28 19:36] LABS: Internal QC Validated? YES +Cl - CLEAR BKGD; Pregnancy, Serum, hCG Quali. NEGATIVE Negative
[2022-10-28 19:41] LABS: Alcohol, Blood (Medical)-Serum < 3.0 mg/dL
[2022-10-28 21:02] VITALS: BP 119/88; PULSE 64; RESP 16; TEMP 36; O2SAT 99
[2022-10-28] MEDS: Famotidine 20 MG Tablet PO (21:40)
[2022-10-28] MEDS: OLANZapine 5 MG/TAB TAB.RAPDIS 15 MG PO (21:40)
[2022-10-28] MEDS: Doxazosin 4 MG Tablet PO (21:40)
[2022-10-28] MEDS: lamoTRIgine 100 MG Tablet 200 MG PO (21:40)
[2022-10-28 22:06] VITALS: RESP 18
--- NOTE | 2022-10-28 22:21 | NURSING ---
EVERYTHING SENT OVER TO [facility] FOR PLACEMENT. PT WAS ACCESSED VIA PHONE CALL.
--- NOTE | 2022-10-28 22:27 | NURSING ---
REFERRED TO [facility] & HUGO MURPHY
--- NOTE | 2022-10-28 22:43 | ED.RN ---
DECLINED BY [facility]
[2022-10-28 23:08] VITALS: RESP 17
[2022-10-28 23:26] VITALS: BP 106/61; PULSE 88; RESP 18; O2SAT 95
[2022-10-29 01:37] VITALS: RESP 16
[2022-10-29 04:00] VITALS: BP 129/76; PULSE 93; RESP 18; O2SAT 97
[2022-10-29] MEDS: Levothyroxine 25 MCG TABLET PO (05:41)
[2022-10-29 06:39] VITALS: BP 135/88; PULSE 93; RESP 16; O2SAT 98
--- NOTE | 2022-10-29 07:52 | ED.RN ---
[facility] DENIED PATIENT DUE TO THEIR INSURANCE WON'T COVER AN INPATIENT STAY
--- NOTE | 2022-10-29 08:00 | ED.RN ---
pt requesting meds. called pharmacy for daily meds.
[2022-10-29] MEDS: Famotidine 20 MG Tablet PO (08:51)
[2022-10-29] MEDS: lamoTRIgine 100 MG Tablet 200 MG PO (08:51)
[2022-10-29] MEDS: Loratadine 10 MG Tablet PO (08:51)
[2022-10-29] MEDS: Multivitamins,Therapeutic Tablet 1 TABLET PO (08:51)
[2022-10-29] MEDS: Omega-3 Acid Ethyl Esters 1 GM Capsule PO (08:51)
[2022-10-29] MEDS: Cholecalciferol (VIT D3) 25 MCG TABLET (1,000 UNITS) 50 MCG PO (08:52)
[2022-10-29] MEDS: Pantoprazole Sodium 40 MG Tablet PO (08:52)
[2022-10-29] MEDS: FLUoxetine 10 MG Capsule 30 MG PO (08:52)
--- NOTE | 2022-10-29 10:30 | ED.RN ---
mother twin called and consent for transfer to [facility]. verifed by this nurse and elizabeth bolden. faxed.
--- NOTE | 2022-10-29 10:54 | ED.RN ---
received acceptamce to [facility].
--- NOTE | 2022-10-29 11:17 | ED.RN ---
PATIENT WAS ACCEPTED AT [facility], BY DR KHOURY. ETA FOR PHYSICIANS IS 1300.
== END 2022-10-29 13:30 ==
PROVIDERS: Emergency Provider Emergency Medicine; PCP Family Medicine; Visit Provider Emergency Medicine
DX: R45.851 Suicidal ideations (principal); F41.9 Anxiety disorder, unspecified; F32.A Depression, unspecified
CPT/HCPCS: 80048; 80307; 82077; 84703; 85025; 87428; 99282

== ENCOUNTER 2022-11-23 11:00 | Outpatient (RCR) | payer MEDICAID, SELFPAY ==
--- NOTE | 2022-10-24 13:25 | HP.PTEVAL_ITS ---
Patient's Visit Information MARTÍNEZ MOORE is a 27 year old F referred to Physical Therapy by Dr. Jaziel Gutierrez MD with a diagnosis of FAS, dizzyness. Date of Evaluation: 10/24/22 Physical Therapist: Javier Morfin, LELA, OCS, CSCS - Visit Plan Frequency: 2-3x /Week Duration: 4-6 Weeks Plan: 2-3x/week for 4 weeks for... 1. progress home vestibular. 2. Teach Balance and core ex to HEP(focus core, foam and ec/VOR balance) - Subjective I have balance problems and have been falling alot. Loses balance alot recently and not sure why. Feels dizzy if gets out of bed too quick. Doing basketball through [employer] and fell a couple times running on court. Doctor not sure why it is happening. Did have seizures at 12 you and will have MRI next week to make sure it is not seizures. Is on seizure meds but has not had one in 10 yrs. No numbness , no pain. Falls not always preceded by dizzyness. Running full speed can cause falling. This falling will cause her to stop playing for a bit but goes back in game. Has bipolar, ADHD, anxiety depression, alcohol syndrome. Asthma. [place] [facility] [place] [facility] [place] doing jobs for companies. Sleep is OK. Hobbies: sharri, basketball, read, music, color. Does not fall much outside of basketball, used to fall on steps. Has to be careful on steps. Avoids carrying stuff down steps. Avoids lifting cat litter on steps. More basketball lately. Played 3 years ago, did not have balance issues back then. No regular exercises. - Objective Walks I on firm flat surface, trasnfers chair and bed I without UE. VOR makes dizzy. Steps reciprocally without rail but slow. Oculomotor: no nystagmus with gaze or head shake. - ocular tilt and - skew eye deviation. - head thrust. VOR 30 sec H 5/10 dizzyness for 10 seconds. pursuit and saccades are slow but normal feeling. sensation LE WNL to gross light touch, hyperreflexic expectedly in patella and achilles. Strength core 3/5 and hips 3/5 and knees and ankles 4/5 - Balance/Special Test Scores Functional Gait Assessment Score: 27 % Disability: 10.0000 CATSIB Score (Max score 120 seconds): 97 Dizziness Score: 12 - Goals Goal 1:: VOR without symptoms and I in HEP to manage Goal Time Frame: 4-6 Weeks Goal 2:: 30 FGA to diminish fall risk Goal Time Frame: 4-6 Weeks Goal 3:: Patient feel 80% better and ready to play basketball Goal Time Frame: 4-6 Weeks Goal 4:: 0 on DHI Goal Time Frame: 4-6 Weeks - Rehabilitation Potential Rehabilitation Potential: Fair - Anticipated Interventions Patient/Client Instruction: Educate patient on: Condition, Plan of Care For the Purpose of:: To improve ability of physical actions for home/community/work/leisure, To improve gait and locomotor functions Therapeutic Exercise to Include: Strength training Comment: adaptation ex For the Purpose of:: To improve muscle performance and motor function, To incr ease tolerance to activity/condition/position, To improve ability of physical actions for home/community/work/leisure, To improve gait and locomotor functions Thank you for the opportunity to evaluate your patient. For Medicare and Medicare HMO plans, please review the plan of care and approve it. It will need to be FAXED BACK to us at [phone] for Medicare purposes. For Medicare only, by signing this I certify the plan of care. Please let me know if there are questions or concerns regarding this plan of care. Physician Signature: Date:
--- NOTE | 2022-11-23 11:53 | HP.PTDCSUM ---
It has been my pleasure to treat MARTÍNEZ MOORE referred by Dr. Jaziel Gutierrez MD, with the diagnosis of FAS, dizzyness for a total of 3 visit(s). Discharge Date: 11/23/22 Please see the following information for a summary of their discharge status. Subjective: Doing home exercises when she can. Has been sick which limits her attendance. Not sure what she has but has been congested and coughing. On the mend. Back to lifting heavier things at work bending and lifting. Nothing has changed other than dizzyness alot better. Balance is close to normal but still off a little bit. VOR has helped. % Improvement: 90 Objective/Function: No dizzyness with VOR. balance much better adn normal for age. Goal 1:: VOR without symptoms and I in HEP to manage Goal Progress: Goal Met Goal 2:: FGA to diminish fall risk Goal Progress: Goal Met Goal 3:: Patient feel 80% better and ready to play basketball Goal Progress: Goal Met Goal 4:: 0 on DHI Goal Progress: Goal Met Plan: d/c Discharge Comments: Doing well with balance and dizzyness, will let doctor know if she wants to work on overall ex program at sometime in the future which did not get accomplished due to sickness and missed visits in this POC. If there are questions or concerns regarding this patient's physical therapy, please feel free to call me at [phone]. Thank you for the referral of this patient. Sincerely, Javier Morfin, DPT, OCS, CSCS Balance/Gait/Functional tests - Balance/Special Test Scores Functional Gait Assessment Score: 30 % Disability: 0 CATSIB Score (Max score 120 seconds): 97 Dizziness Score: 0
== END 2022-11-23 19:00 | disposition home or self-care (01) ==
LOC: PT 11:00
PROVIDERS: PCP Family Medicine; Referring Provider Psychiatry & Neurology Neurology; Visit Provider Psychiatry & Neurology Neurology
DX: F82 Specific developmental disorder of motor function (principal); Q86.0 Fetal alcohol syndrome (dysmorphic); R42 Dizziness and giddiness
CPT/HCPCS: 97110; 97161; 97164

== ENCOUNTER 2022-11-23 17:19 | Emergency (ER) | payer MEDICAID, SELFPAY ==
[2022-11-23] VITALS (7 sets, daily range): BP systolic 145; BP diastolic 96; PULSE 86; RESP 14–18; TEMP 36.5; O2SAT 99; BMI 27.0
[2022-11-23 19:01] LABS: Absolute Lymphocyte Count 3.87 X10^3/uL (0.83-4.51); Absolute Neutrophil Count 4.5 X10^3/uL (2.0-7.7); Hematocrit 40.5 % (37-47); Hemoglobin 13.6 g/dL (12.0-15.0); Lymphocyte # 3.87 X10^3/ul (0.83-4.51); Lymphocyte % 42.8 % (19-41); Mean Corp Hgb Conc 33.6 g/dL (32-36); Mean Corpuscular Hgb 29.1 pg (27.0-32.0); Mean Corpuscular Volume 86.7 fL (81-99); Mean Platelet Vol. 9.5 fl (6.2-12.0); Monocyte# 0.66 X10^3/uL; Monocyte% 7.3 % (0-10); NRBC Flagged by Analyzer 0 % (0-5); Neutrophil # 4.49 X10^3/uL (2.7-7.7); Neutrophil % 49.7 % (47-70); Platelet Count 245 K/mm3 (150-450); RBC Distribution Width CV 13.2 % (11.6-14.6); RBC Distribution Width SD 40.9 fl (35.1-43.9); Red Blood Count 4.67 M/mm3 (4.2-5.4)
[2022-11-23 19:19] LABS: Anion Gap 8 (5-15); BUN 7 mg/dL (7-18); BUN/Creat Ratio 9.9 RATIO (10-20); Calcium,Total 8.9 mg/dL (8.5-10.1); Chloride 106 mmol/L (98-107); Creatinine, Serum 0.71 mg/dL (0.55-1.02); EST Glomerular Filtration Rate 106 mL/min (>60); Est Glom Filt Rate - Afr Amer 128 mL/min (>60); Glucose 103 mg/dL (74-106); Potassium 4.4 mmol/L (3.5-5.1); Sodium Level 139 mmol/L (136-145)
[2022-11-23 19:22] LABS: Internal QC Validated? YES +Cl - CLEAR BKGD; Pregnancy, Serum, hCG Quali. NEGATIVE Negative
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
[2022-11-23 20:15] LABS: Amphetamine Urine VISTA NEGATIVE (<1000 ng/mL); Barbiturate Urine VISTA NEGATIVE (< 200 ng/mL); Benzodiazepine Urine VISTA NEGATIVE (< 200 ng/mL); Cocaine Urine VISTA NEGATIVE (< 300 ng/mL); Ecstacy Urine VISTA NEGATIVE (< 500 ng/mL); Methadone Urine VISTA NEGATIVE (< 300 ng/mL); PCP Urine VISTA NEGATIVE (< 25 ng/mL); THC Urine VISTA NEGATIVE (< 50 ng/mL); Vista UDS pH Range 7
--- NOTE | 2022-11-23 20:20 | EX.ED.VIS.PS ---
HPI HPI - Psych History of Present Illness Chief Complaint: Mental Health Informant: patient Narrative Narrative: Patient presents feeling that her meds are not working and more suicidal thoughts. She was recently admitted. There have been medication changes but they are not working. She has had thoughts of hurting herself. She actually wrapped a cord around her neck for a period of time a couple days ago. No actual loss of consciousness. She states she thinks it is the Latuda that is making her bipolar symptoms go to extremes and worsening this. She has no physical complaints. [facility] Medical History ADHD Anxiety Asthma Bipolar 1 disorder alcohol spectrum disorder GERD (gastroesophageal reflux disease) History of reactive attachment disorder Migraines PTSD (post-traumatic stress disorder) Reactive hypoglycemia Thyroid disease Home Medications Omeprazole [Prilosec] 40 mg PO DAILY 07/10/16 [History Last Taken 07/10/16] cetirizine 10 mg tablet (All Day Allergy (cetirizine)) 10 mg PO DAILY 07/10/16 [History Last Taken 07/10/16] Fish Oil 1,000 mg Softgel 500 mg PO BID 07/11/16 [History Last Taken Unknown] cholecalciferol (vitamin D3) 25 mcg (1,000 unit) tablet (Vitamin D3) 2,000 unit PO DAILY 07/11/16 [History Last Taken Unknown] multivitamin (Daily Multiple tablet) 2 ea PO DAILY 07/11/16 [History Last Taken Unknown] fluticasone propionate 110 mcg/actuation HFA aerosol inhaler (Flovent HFA) 1 puff inhalation Q12H 02/25/21 [History Last Taken Unknown] levonorgestrel-ethinyl estradiol 90 mcg-20 mcg (28) tablet 1 tab PO DAILY 02/25/21 [History Last Taken Unknown] levothyroxine 25 mcg capsule 25 mcg PO DAILY 02/25/21 [History Last Taken Unknown] polyethylene glycol 3350 17 gram oral powder packet (Miralax) 17 g PO DAILY 02/25/21 [History Last Taken Unknown] rizatriptan 5 mg tablet 5 mg PO Q2H PRN HEADACHES 02/25/21 [History Last Taken Unknown] famotidine 20 mg tablet 20 mg PO BID 09/16/22 [History Last Taken Unknown] albuterol sulfate 90 mcg/actuation aerosol inhaler 2 puff inhalation Q6H PRN Shortness Of Breath Or Wheezing 10/24/22 [History Last Taken Unknown] fluoxetine 40 mg capsule 40 mg PO DAILY #30 caps 11/17/22 [Rx Last Taken Unknown] hydroxyzine HCl 25 mg tablet 25 mg PO TID PRN anxiety #90 tabs 11/17/22 [Rx Last Taken Unknown] lamotrigine 200 mg tablet 200 mg PO BID #60 tabs 11/17/22 [Rx Last Taken Unknown] lurasidone 20 mg tablet 20 mg PO QPM #30 tabs 11/17/22 [Rx Last Taken Unknown] prazosin 5 mg capsule 5 mg PO DAILY 30 days #30 caps 11/17/22 [Rx Last Taken Unknown] Allergy/AdvReac Type Severity Reaction Status Date / Time fructose AdvReac Vomiting Verified 11/23/22 17:29 lactose AdvReac Vomiting Verified 11/23/22 17:29 Family History Unknown Adopted Social History Smoking Status: Never smoker alcohol intake: never substance use type: does not use seatbelt use: always do you feel safe at home: Yes ROS ROS ED Constitutional Constitutional ED: Denies chills or fever(s) ENT ENT ED: Denies sore throat Cardiovascular Cardiovascular: Denies chest pain Respiratory/Chest Respiratory/Chest: Denies cough Gastrointestinal Gastrointestinal: Denies nausea or vomiting Genitourinary Genitourinary ED: Denies dysuria Musculoskeletal Musculoskeletal: Denies myalgias Integumentary Denies rash Neurologic Neurologic: Denies weakness Psychiatric Psychiatric: Reports anxiety, depression, suicidal ideation and suicidal thoughts Endocrine Endocrinology: Denies polydipsia or polyuria Hematologic/Lymphatic Hematologic/Lymphatic: Denies lymphadenopathy Allergic/Immunologic Allergic/Immunologic ED: Denies urticaria EXAM Physical Exam Narrative Exam Narrative: Patient awake alert sitting on bed. She is laughing and having fun with staff. She is nontoxic. HEENT shows no sign of trauma. Mucous membranes moist Neck shows no JVD Lungs are clear bilaterally Heart is regular pulses are normal. Abdomen is soft nontender. Neuro/psych: Patient is awake alert nontoxic. She admits to suicidal thoughts. She may be slightly manic. No sign of significant depression at this time. Const Vital Signs: 11/23/22 17:21 Temperature 97.7 F L Temperature Source Temporal Pulse Rate 86 Respiratory Rate 16 Blood Pressure 145/96 H Blood Pressure Mean 112 Pulse Ox 99 Oxygen Delivery Method Room Air MDM MDM MDM Narrative Medical decision making narrative: Patient CBC shows no acute abnormalities. Her electrolytes are normal. Alcohol is negative. is negative. Talk screen is negative. Patient is medically cleared for psychiatric admission/evaluation. With her increasing thoughts of suicide despite treatment she will need readmission. Lab Data Attestation: I reviewed the patient's lab results. Labs: Laboratory Results - last 24 hr 11/23/22 11/23/22 11/23/22 18:35 18:35 18:35 WBC 9.0 RBC 4.67 Hgb 13.6 Hct 40.5 MCV 86.7 MCH 29.1 MCHC 33.6 RDW Std Deviation 40.9 RDW Coeff of Rito 13.2 Plt Count 245 MPV 9.5 Immature Gran % (Auto) 0.200 Neut % (Auto) 49.7 Lymph % (Auto) 42.8 H Frontier % (Auto) 7.3 Eos % (Auto) 0.0 Baso % (Auto) 0.0 Absolute Neuts (auto) 4.5 Absolute Lymphs (auto) 3.87 Nucleated RBC % 0 Sodium 139 Potassium 4.4 Chloride 106 Carbon Dioxide 25.0 Anion Gap 8 BUN 7 Creatinine 0.71 Estim Creat Clear Calc 91.40 Est GFR (MDRD) Af Amer 128 Est GFR (MDRD) Non-Af 106 BUN/Creatinine Ratio 9.9 L Glucose 103 Calcium 8.9 Serum , Qual Urine Opiates Screen Urine Methadone Screen Ur Barbiturates Screen Ur Phencyclidine Scrn Ur Amphetamines Screen MDMA (Ecstasy) Screen U Benzodiazepines Scrn Urine Cocaine Screen U Cannabinoids Screen Ur Drug Screen Comment Ethyl Alcohol 4.0 11/23/22 11/23/22 18:35 19:31 WBC RBC Hgb Hct MCV MCH MCHC RDW Std Deviation RDW Coeff of Rito Plt Count MPV Immature Gran % (Auto) Neut % (Auto) Lymph % (Auto) Frontier % (Auto) Eos % (Auto) Baso % (Auto) Absolute Neuts (auto) Absolute Lymphs (auto) Nucleated RBC % Sodium Potassium Chloride Carbon Dioxide Anion Gap BUN Creatinine Estim Creat Clear Calc Est GFR (MDRD) Af Amer Est GFR (MDRD) Non-Af BUN/Creatinine Ratio Glucose Calcium Serum , Qual NEGATIVE Urine Opiates Screen NEGATIVE Urine Methadone Screen NEGATIVE Ur Barbiturates Screen NEGATIVE Ur Phencyclidine Scrn NEGATIVE Ur Amphetamines Screen NEGATIVE MDMA (Ecstasy) Screen NEGATIVE U Benzodiazepines Scrn NEGATIVE Urine Cocaine Screen NEGATIVE U Cannabinoids Screen NEGATIVE Ur Drug Screen Comment Ethyl Alcohol Discharge Plan Triage Chief Complaint: Mental Health ED Provider: Chaitanya Redmond Dx/Rx/DC Orders Clinical Impression: Suicidal ideation, Failure of outpatient treatment Prescriptions: No Action lurasidone 20 mg tablet 20 mg PO QPM Qty: 30 2RF Rx Instructions: must administer with food (at least 350 calories) hydroxyzine HCl 25 mg tablet 25 mg PO TID PRN (Reason: anxiety) Qty: 90 2RF fluoxetine 40 mg capsule 40 mg PO DAILY Qty: 30 2RF lamotrigine 200 mg tablet 200 mg PO BID Qty: 60 4RF albuterol sulfate 90 mcg/actuation HFA aerosol inhaler 2 puff inhalation Q6H PRN (Reason: Shortness Of Breath Or Wheezing) cetirizine [All Day Allergy (cetirizine)] 10 MG tablet 10 mg PO DAILY Omeprazole [Prilosec] 40 MG capsule 40 mg PO DAILY multivitamin [Daily Multiple] 1 EACH tablet 2 ea PO DAILY cholecalciferol (vitamin D3) [Vitamin D3] 1,000 UNIT tablet 2,000 unit PO DAILY Fish Oil 1,000 mg Softgel 500 mg PO BID polyethylene glycol 3350 [Miralax] 17 gram Powder In Packet 17 g PO DAILY fluticasone propionate [Flovent HFA] 110 mcg/actuation Hfa Aerosol Inhaler 1 puff INHALATION Q12H rizatriptan 5 mg Tablet 5 mg PO Q2H PRN (Reason: HEADACHES) levonorgestrel-ethinyl estrad 90-20 mcg (28) Tablet 1 tab PO DAILY levothyroxine 25 mcg Capsule 25 mcg PO DAILY famotidine 20 mg Tablet 20 mg PO BID prazosin 5 mg capsule 5 mg PO DAILY 30 Days Qty: 30 2RF Primary Care Provider: Jerry Coles Referrals: Jerry Coles MD [Primary Care Provider] - Disposition Disposition: Psychiatric Hospital or Unit
--- NOTE | 2022-11-23 20:29 | CM.ED ---
Addendum entered by Diana Jerome 11/23/22 20:44: JORDY faxed referral packet to Carile at [facility] for review. Diana HENDERSON Original Note: JORDY called Bill at [facility]. No beds. JORDY called [facility]. No beds Jordy called [facility]. They do not take medicaid. JORDY called [facility]. They will take referral. Diana HENDERSON
--- NOTE | 2022-11-23 21:07 | CM.ED ---
REID called Arlin at [facility]. She recommended that [facility] be called as there may be situation that patient's with DD get services from facilities that are not affiliated with a hospital system. REID called Suma at [facility]. THey do not take medicaid and there is no situation she is familiar with that they would take medicaid. REID called Eileen at [facility]. They have no beds. REID called [facility] They take patients medicaid but have 11 people in their ED waiting for assessments so they will not have any beds. REID called patient's guardian and explained that there are limits on where patient can go for psychiatric treatment. Guardian, Heaven, said that she is fine with referral to [facility] but she would have to be stricter with them about changing meds. Diana HENDERSON
--- NOTE | 2022-11-23 21:11 | ED.RN ---
SPOKE WITH NURSE FROM [facility] AT THIS TIME. QUESTIONS ANSWERED AND GIVEN PATIENT REPORT. PER NURSE, SHE WILL RUN IT BY THEIR PSYCHIATRIST AND CALL BACK SOCIAL WORK WITH DECISION.
--- NOTE | 2022-11-23 21:23 | CM.ED ---
REID was updated by Arlin in Crisis that [facility] and [facility] have no beds. REID called Manisha at [facility]. She said to send the referral packet for review. REID sent packet for review. REID faxed referral packet to Arlin at [facility] for continuity of care. Diana HENDERSON
--- NOTE | 2022-11-23 22:15 | CM.ED ---
REID called Arlin at [facility] and gave handoff. REID called Manisha at [facility] and advised that this press writer is leaving. REID provided phone number for crisis and main ED at [facility]. REID called Carlie at [facility]. They declined patient. REID updated patient. Diana HENDERSON
--- NOTE | 2022-11-23 23:53 | NURSING ---
[facility]IS[facility] CALLED AND SAID SHE IS PENDING [facility] DISCHARGES TOMORROW MORNING.
[2022-11-24] VITALS (13 sets, daily range): BP systolic 111–137; BP diastolic 73–96; PULSE 66–85; RESP 14–20; TEMP 36.7; O2SAT 97–99
[2022-11-24] MEDS: hydrOXYzine PAM 25 MG Capsule PO ×2 (02:54→22:29)
[2022-11-24] MEDS: Levothyroxine 25 MCG TABLET PO (06:09)
--- NOTE | 2022-11-24 11:29 | CM.ED ---
REID called Chelle at [facility]. No updates from [facility]. SW will call [facility] for update. REID spoke to [facility] community artist Amira and she will look for patient's referral and then call this screenplay writer back. REID spoke to Jemma at Crisis. She said that if [facility] does not accept they will refer to [facility]. REID called patient's mother/guardian and updated her that we are waiting for call back from [facility]. REID discussed limitations in finding facility due to medicaid. Guardian said that patient is on [place]aiver and thus has to have medicaid. REID advised that if [facility] can't accept patient will be referred to [facility]. Mother said that when patient turned 20 she became hospital dependent and the crisis team had to discuss with patient that she can't go to hospitals when she doesn't want to deal with life. Mother said that patient was at [facility] and other facilities in the past as she was working and her insurance was primary and then medicaid was secondary. Diana HENDERSON
--- NOTE | 2022-11-24 12:29 | CM.ED ---
REID called Yolanda at [facility]. REID was advised that she is in a meeting but will call this magnetic tape typewriter operator back. Diana HENDERSON
--- NOTE | 2022-11-24 14:07 | CM.ED ---
REID Note REID called Amira, transportation operations manager, at [facility]. They have no beds. REID called Jemma at [facility]. Advised that [facility] has no beds. [facility] will make referral to [facility] for patient. REID called [facility] and spoke to BRIDGETTE. BRIDGETTE said that they do not take medicaid over age 20 and under age 65. He recommended [facility] or [facility]. Diana HENDERSON
--- NOTE | 2022-11-24 14:38 | CM.ED ---
REID Note REID called [facility]. They said that this group underwriter could fax a referral. REID faxed referral to [facility]. [facility] does not take out of [facility] referrals (which Jemma from Crisis confirmed). REID called [facility]. SW spoke Violetta. They are full with no beds. REID called [facility] and left voice mail message for them inquiring about beds. REID called [facility]. They have no beds. REID called [facility]. They have no beds. REID left voice mail message for [facility] requesting call back. REID called [facility]. They have no beds. REID called [facility]. REID left voice mail for [facility] staff inquiring about bed availability. Diana HENDERSON
--- NOTE | 2022-11-24 15:26 | CM.ED ---
Addendum entered by Diana Jerome 11/24/22 15:29: REID faxed referral to [facility]. Diana HENDERSON Original Note: REID made referral to [facility] with diagnosis of bipolar.
--- NOTE | 2022-11-24 17:57 | CM.ED ---
[facility] called. No beds at [facility]. [facility] called. Patient was declined at [facility] due to acuity. SW met with patient briefly and inquired as to how she is feeling. Patient is bright and continues to be elevated. She is coloring in the room. She said that she needs to go somewhere and be treated before she goes back home. Patient said that her being treated means that she will be evaluated by a psychiatrist and her meds would be adjusted. SW discussed with patient that she needs to learn coping skills and patient said that she has been to groups in [facility] and learned all that stuff but it doesn't work. Diana HENDERSON
--- NOTE | 2022-11-24 21:16 | CM.ED ---
REID called Heaven and advised patient is scheduled to leave at 11:30pm. Diana HENDERSON
== END 2022-11-24 23:34 ==
PROVIDERS: Emergency Provider Emergency Medicine; PCP Family Medicine; Visit Provider Emergency Medicine
DX: R45.851 Suicidal ideations (principal); F31.9 Bipolar disorder, unspecified; J45.909 Unspecified asthma, uncomplicated; F41.9 Anxiety disorder, unspecified; K21.9 Gastro-esophageal reflux disease without esophagitis
CPT/HCPCS: 80048; 80307; 82077; 84703; 85025; 87811; 93005; 99285

== ENCOUNTER → 2022-12-07 | Outpatient (CLI) | payer MEDICAID, SELFPAY ==
--- NOTE | 2022-12-07 11:29 | MRI_ITS ---
STUDY: MRI BRAIN WITH AND WITHOUT CONTRAST REASON FOR EXAM: Female, 27 years old. Chronic gait disorder; cognitive impairment TECHNIQUE: Standardized multiplanar fat and water weighted pulse sequences were obtained. IV 13cc dotarem was administered for the contrast portion of the examination. COMPARISON: CT of the brain July 10, 2016 FINDINGS: Normal size of the ventricles and extra-axial spaces for the patient''s age. Normal white matter tracts of the supratentorial brain. Normal bilateral basal ganglia. Normal thalami. There is no extra-axial fluid accumulation. Normal flow voids within the major intracranial circulation suggesting patency by spin echo criteria. Normal venous enhancement. There is no enhancing intra-axial or extra-axial abnormality. Normal sella turcica, pituitary gland, infundibular stalk, optic chiasm and hypothalamus. Normal tectal plate and pineal gland. Normal midbrain, rachell and medulla. Normal cerebellum. Normal basal cisterns. Normal bilateral temporal bones. Normal bilateral internal auditory canals. No demonstrated orbital abnormality, within the constraints of a routine brain study. Normal visualized paranasal sinuses. Normal calvarium and skull base. Normal visualized soft tissue structures. Normal visualized upper cervical spine. MRI/Brain W/WO Contrast IMPRESSION: Normal unenhanced and enhanced MRI of the brain. Electronically Signed: Douglas Jewell MD at 18:48 EST ,
== END | disposition home or self-care (01) ==
LOC: MRI 11:29
PROVIDERS: PCP Family Medicine; Visit Provider Psychiatry & Neurology Neurology
DX: G40.909 Epilepsy, unspecified, not intractable, without status epilepticus (principal); F82 Specific developmental disorder of motor function; F81.9 Developmental disorder of scholastic skills, unspecified; Q86.0 Fetal alcohol syndrome (dysmorphic); R51.9 Headache, unspecified; R42 Dizziness and giddiness
CPT/HCPCS: 70553; A9575

== ENCOUNTER → 2022-12-28 | Outpatient (CLI) | payer MEDICAID, SELFPAY ==
[2022-12-28 15:41] LABS: Absolute Lymphocyte Count 2.95 X10^3/uL (0.83-4.51); Absolute Neutrophil Count 3.5 X10^3/uL (2.0-7.7); Basophil# 0.01 X10^3/uL; Basophil% 0.1 % (0-1); Hematocrit 40.9 % (37-47); Hemoglobin 13.4 g/dL (12.0-15.0); Lymphocyte # 2.95 X10^3/ul (0.83-4.51); Lymphocyte % 42.4 % (19-41); Mean Corp Hgb Conc 32.8 g/dL (32-36); Mean Corpuscular Hgb 29.3 pg (27.0-32.0); Mean Corpuscular Volume 89.3 fL (81-99); Mean Platelet Vol. 9.4 fl (6.2-12.0); Monocyte# 0.48 X10^3/uL; Monocyte% 6.9 % (0-10); NRBC Flagged by Analyzer 0 % (0-5); Neutrophil # 3.51 X10^3/uL (2.7-7.7); Neutrophil % 50.5 % (47-70); Platelet Count 237 K/mm3 (150-450); RBC Distribution Width CV 12.7 % (11.6-14.6); RBC Distribution Width SD 41.9 fl (35.1-43.9); Red Blood Count 4.58 M/mm3 (4.2-5.4)
== END | disposition home or self-care (01) ==
LOC: LAB 15:19
PROVIDERS: PCP Family Medicine; Referring Provider Student in an Organized Health Care Education/Training Program; Visit Provider Student in an Organized Health Care Education/Training Program
DX: F31.9 Bipolar disorder, unspecified (principal)
CPT/HCPCS: 36415; 85025

== ENCOUNTER 2023-01-06 09:25 | Outpatient (RCR) | payer MEDICAID, SELFPAY ==
[2023-01-06 10:05] LABS: Absolute Lymphocyte Count 2.03 X10^3/uL (0.83-4.51); Absolute Neutrophil Count 3.1 X10^3/uL (2.0-7.7); Basophil# 0.01 X10^3/uL; Basophil% 0.2 % (0-1); Hematocrit 42.3 % (37-47); Hemoglobin 13.7 g/dL (12.0-15.0); Lymphocyte # 2.03 X10^3/ul (0.83-4.51); Lymphocyte % 36.6 % (19-41); Mean Corp Hgb Conc 32.4 g/dL (32-36); Mean Corpuscular Hgb 28.8 pg (27.0-32.0); Mean Corpuscular Volume 88.9 fL (81-99); Mean Platelet Vol. 9.5 fl (6.2-12.0); Monocyte# 0.38 X10^3/uL; Monocyte% 6.8 % (0-10); NRBC Flagged by Analyzer 0 % (0-5); Neutrophil # 3.11 X10^3/uL (2.7-7.7); Platelet Count 238 K/mm3 (150-450); RBC Distribution Width CV 12.5 % (11.6-14.6); RBC Distribution Width SD 40.8 fl (35.1-43.9); Red Blood Count 4.76 M/mm3 (4.2-5.4); White Blood Count 5.6 K/mm3 (4.4-11.0)
[2023-01-06 10:40] LABS: Troponin-I HS < 3 pg/mL (3.0-54.0)
== END 2023-01-06 21:15 | disposition home or self-care (01) ==
LOC: LAB 09:25
PROVIDERS: PCP Family Medicine; Referring Provider Student in an Organized Health Care Education/Training Program; Visit Provider Student in an Organized Health Care Education/Training Program
DX: F31.9 Bipolar disorder, unspecified (principal); Z51.89 Encounter for other specified aftercare; Z79.899 Other long term (current) drug therapy
CPT/HCPCS: 36415; 84484; 85025

== ENCOUNTER 2023-01-31 12:28 | Outpatient (RCR) | payer MEDICAID, SELFPAY ==
[2023-01-13 13:22] LABS: Absolute Lymphocyte Count 2.69 X10^3/uL (0.83-4.51); Absolute Neutrophil Count 2.8 X10^3/uL (2.0-7.7); Hematocrit 42.2 % (37-47); Hemoglobin 13.9 g/dL (12.0-15.0); Lymphocyte # 2.69 X10^3/ul (0.83-4.51); Lymphocyte % 45.5 % (19-41); Mean Corp Hgb Conc 32.9 g/dL (32-36); Mean Corpuscular Hgb 29.4 pg (27.0-32.0); Mean Corpuscular Volume 89.4 fL (81-99); Mean Platelet Vol. 9.6 fl (6.2-12.0); Monocyte# 0.43 X10^3/uL; Monocyte% 7.3 % (0-10); NRBC Flagged by Analyzer 0 % (0-5); Neutrophil # 2.78 X10^3/uL (2.7-7.7); Platelet Count 225 K/mm3 (150-450); RBC Distribution Width CV 12.4 % (11.6-14.6); RBC Distribution Width SD 40.8 fl (35.1-43.9); Red Blood Count 4.72 M/mm3 (4.2-5.4); White Blood Count 5.9 K/mm3 (4.4-11.0)
[2023-01-20 11:45] LABS: Absolute Lymphocyte Count 2.84 X10^3/uL (0.83-4.51); Absolute Neutrophil Count 3.7 X10^3/uL (2.0-7.7); Basophil# 0.01 X10^3/uL; Basophil% 0.1 % (0-1); Hematocrit 43.1 % (37-47); Hemoglobin 14.1 g/dL (12.0-15.0); Lymphocyte # 2.84 X10^3/ul (0.83-4.51); Lymphocyte % 40.6 % (19-41); Mean Corp Hgb Conc 32.7 g/dL (32-36); Mean Corpuscular Hgb 28.8 pg (27.0-32.0); Mean Corpuscular Volume 88.1 fL (81-99); Mean Platelet Vol. 9.4 fl (6.2-12.0); Monocyte# 0.45 X10^3/uL; Monocyte% 6.4 % (0-10); NRBC Flagged by Analyzer 0 % (0-5); Neutrophil # 3.68 X10^3/uL (2.7-7.7); Neutrophil % 52.6 % (47-70); Platelet Count 240 K/mm3 (150-450); RBC Distribution Width CV 12.3 % (11.6-14.6); RBC Distribution Width SD 39.8 fl (35.1-43.9); Red Blood Count 4.89 M/mm3 (4.2-5.4)
[2023-01-26 18:27] LABS: Absolute Neutrophil Count 2.4 X10^3/uL (2.0-7.7); Basophil# 0.01 X10^3/uL; Basophil% 0.2 % (0-1); Hematocrit 44.4 % (37-47); Hemoglobin 14.6 g/dL (12.0-15.0); Lymphocyte % 50.6 % (19-41); Mean Corp Hgb Conc 32.9 g/dL (32-36); Mean Corpuscular Hgb 29.3 pg (27.0-32.0); Mean Corpuscular Volume 89.2 fL (81-99); Mean Platelet Vol. 9.4 fl (6.2-12.0); Monocyte# 0.48 X10^3/uL; Monocyte% 8.1 % (0-10); NRBC Flagged by Analyzer 0 % (0-5); Neutrophil # 2.43 X10^3/uL (2.7-7.7); Neutrophil % 40.9 % (47-70); Platelet Count 261 K/mm3 (150-450); RBC Distribution Width CV 12.3 % (11.6-14.6); RBC Distribution Width SD 39.6 fl (35.1-43.9); Red Blood Count 4.98 M/mm3 (4.2-5.4); White Blood Count 5.9 K/mm3 (4.4-11.0)
[2023-01-31 13:04] LABS: Absolute Neutrophil Count 4.3 X10^3/uL (2.0-7.7); Basophil# 0.01 X10^3/uL; Basophil% 0.1 % (0-1); Eosinophil# 0.01 X10^3/uL; Eosinophils% 0.1 % (0-5); Hematocrit 42.6 % (37-47); Hemoglobin 13.8 g/dL (12.0-15.0); Lymphocyte % 35.9 % (19-41); Mean Corp Hgb Conc 32.4 g/dL (32-36); Mean Corpuscular Volume 89.5 fL (81-99); Mean Platelet Vol. 9.4 fl (6.2-12.0); Monocyte# 0.51 X10^3/uL; Monocyte% 6.8 % (0-10); NRBC Flagged by Analyzer 0 % (0-5); Neutrophil # 4.27 X10^3/uL (2.7-7.7); Neutrophil % 56.8 % (47-70); Platelet Count 213 K/mm3 (150-450); RBC Distribution Width CV 12.2 % (11.6-14.6); RBC Distribution Width SD 40.3 fl (35.1-43.9); Red Blood Count 4.76 M/mm3 (4.2-5.4); White Blood Count 7.5 K/mm3 (4.4-11.0)
== END 2023-02-05 00:25 | disposition home or self-care (01) ==
LOC: LAB 12:28
PROVIDERS: PCP Family Medicine; Referring Provider Student in an Organized Health Care Education/Training Program; Visit Provider Student in an Organized Health Care Education/Training Program
DX: F31.9 Bipolar disorder, unspecified (principal)
CPT/HCPCS: 36415; 85025

== ENCOUNTER 2023-03-03 09:35 | Outpatient (RCR) | payer MEDICAID, SELFPAY ==
[2023-02-10 17:33] LABS: Hemoglobin A1c 5.4 % (3.8-5.6)
[2023-02-16 10:57] LABS: Absolute Neutrophil Count 2.4 X10^3/uL (2.0-7.7); Basophil# 0.01 X10^3/uL; Basophil% 0.2 % (0-1); Hematocrit 43.8 % (37-47); Hemoglobin 13.8 g/dL (12.0-15.0); Lymphocyte % 41.8 % (19-41); Mean Corp Hgb Conc 31.5 g/dL (32-36); Mean Corpuscular Hgb 28.3 pg (27.0-32.0); Mean Corpuscular Volume 89.9 fL (81-99); Mean Platelet Vol. 9.5 fl (6.2-12.0); Monocyte# 0.34 X10^3/uL; Monocyte% 7.1 % (0-10); NRBC Flagged by Analyzer 0 % (0-5); Neutrophil # 2.43 X10^3/uL (2.7-7.7); Neutrophil % 50.7 % (47-70); Platelet Count 247 K/mm3 (150-450); RBC Distribution Width CV 12.5 % (11.6-14.6); RBC Distribution Width SD 41.2 fl (35.1-43.9); Red Blood Count 4.87 M/mm3 (4.2-5.4); White Blood Count 4.8 K/mm3 (4.4-11.0)
[2023-02-23 17:02] LABS: Absolute Lymphocyte Count 3.47 X10^3/uL (0.83-4.51); Absolute Neutrophil Count 3.6 X10^3/uL (2.0-7.7); Basophil# 0.02 X10^3/uL; Basophil% 0.3 % (0-1); Eosinophil# 0.01 X10^3/uL; Eosinophils% 0.1 % (0-5); Hematocrit 44.6 % (37-47); Hemoglobin 14.4 g/dL (12.0-15.0); Lymphocyte # 3.47 X10^3/ul (0.83-4.51); Lymphocyte % 44.6 % (19-41); Mean Corp Hgb Conc 32.3 g/dL (32-36); Mean Corpuscular Hgb 28.6 pg (27.0-32.0); Mean Corpuscular Volume 88.7 fL (81-99); Mean Platelet Vol. 8.9 fl (6.2-12.0); Monocyte# 0.66 X10^3/uL; Monocyte% 8.5 % (0-10); NRBC Flagged by Analyzer 0 % (0-5); Neutrophil # 3.59 X10^3/uL (2.7-7.7); Neutrophil % 46.1 % (47-70); Platelet Count 284 K/mm3 (150-450); RBC Distribution Width CV 12.3 % (11.6-14.6); RBC Distribution Width SD 39.8 fl (35.1-43.9); Red Blood Count 5.03 M/mm3 (4.2-5.4); White Blood Count 7.8 K/mm3 (4.4-11.0)
[2023-03-03 09:55] LABS: Absolute Lymphocyte Count 2.44 X10^3/uL (0.83-4.51); Absolute Neutrophil Count 2.5 X10^3/uL (2.0-7.7); Hematocrit 45.4 % (37-47); Hemoglobin 14.2 g/dL (12.0-15.0); Lymphocyte # 2.44 X10^3/ul (0.83-4.51); Lymphocyte % 45.6 % (19-41); Mean Corp Hgb Conc 31.3 g/dL (32-36); Mean Corpuscular Hgb 28.3 pg (27.0-32.0); Mean Corpuscular Volume 90.6 fL (81-99); Mean Platelet Vol. 9.1 fl (6.2-12.0); Monocyte# 0.42 X10^3/uL; Monocyte% 7.9 % (0-10); NRBC Flagged by Analyzer 0 % (0-5); Neutrophil # 2.47 X10^3/uL (2.7-7.7); Neutrophil % 46.1 % (47-70); Platelet Count 220 K/mm3 (150-450); RBC Distribution Width CV 12.3 % (11.6-14.6); RBC Distribution Width SD 40.3 fl (35.1-43.9); Red Blood Count 5.01 M/mm3 (4.2-5.4); White Blood Count 5.4 K/mm3 (4.4-11.0)
== END 2023-03-03 11:00 | disposition home or self-care (01) ==
LOC: LAB 09:35
PROVIDERS: PCP Family Medicine; Referring Provider Student in an Organized Health Care Education/Training Program; Visit Provider Student in an Organized Health Care Education/Training Program
DX: F31.9 Bipolar disorder, unspecified (principal)
CPT/HCPCS: 36415; 83036; 85025

== ENCOUNTER 2023-04-03 14:52 | Outpatient (RCR) | payer MEDICAID, SELFPAY ==
[2023-03-10 11:47] LABS: Absolute Lymphocyte Count 1.74 X10^3/uL (0.83-4.51); Absolute Neutrophil Count 2.7 X10^3/uL (2.0-7.7); Basophil# 0.01 X10^3/uL; Basophil% 0.2 % (0-1); Eosinophil# 0.01 X10^3/uL; Eosinophils% 0.2 % (0-5); Hematocrit 45.9 % (37-47); Hemoglobin 14.4 g/dL (12.0-15.0); Lymphocyte # 1.74 X10^3/ul (0.83-4.51); Lymphocyte % 36.5 % (19-41); Mean Corp Hgb Conc 31.4 g/dL (32-36); Mean Corpuscular Hgb 28.2 pg (27.0-32.0); Mean Corpuscular Volume 89.8 fL (81-99); Mean Platelet Vol. 11.1 fl (6.2-12.0); Monocyte# 0.31 X10^3/uL; Monocyte% 6.5 % (0-10); NRBC Flagged by Analyzer 0 % (0-5); Neutrophil # 2.69 X10^3/uL (2.7-7.7); Neutrophil % 56.4 % (47-70); POSITIVE COUNT YES; RBC Distribution Width CV 12.2 % (11.6-14.6); Red Blood Count 5.11 M/mm3 (4.2-5.4); White Blood Count 4.8 K/mm3 (4.4-11.0)
[2023-03-10 12:13] LABS: Differential Indicated SCAN CRITERIA MET
[2023-03-10 12:14] LABS: Platelet Estimate ADEQUATE (ADEQ)
[2023-03-17 17:12] LABS: Absolute Lymphocyte Count 2.77 X10^3/uL (0.83-4.51); Absolute Neutrophil Count 2.5 X10^3/uL (2.0-7.7); Basophil# 0.01 X10^3/uL; Basophil% 0.2 % (0-1); Hematocrit 45.1 % (37-47); Hemoglobin 14.2 g/dL (12.0-15.0); Lymphocyte # 2.77 X10^3/ul (0.83-4.51); Lymphocyte % 47.6 % (19-41); Mean Corp Hgb Conc 31.5 g/dL (32-36); Mean Corpuscular Hgb 28.3 pg (27.0-32.0); Mean Corpuscular Volume 89.8 fL (81-99); Mean Platelet Vol. 9.2 fl (6.2-12.0); Monocyte# 0.58 X10^3/uL; NRBC Flagged by Analyzer 0 % (0-5); Neutrophil # 2.45 X10^3/uL (2.7-7.7); Platelet Count 273 K/mm3 (150-450); RBC Distribution Width CV 12.5 % (11.6-14.6); RBC Distribution Width SD 40.9 fl (35.1-43.9); Red Blood Count 5.02 M/mm3 (4.2-5.4); White Blood Count 5.8 K/mm3 (4.4-11.0)
[2023-03-24 09:51] LABS: Absolute Lymphocyte Count 2.02 X10^3/uL (0.83-4.51); Absolute Neutrophil Count 3.1 X10^3/uL (2.0-7.7); Hematocrit 43.4 % (37-47); Hemoglobin 14.3 g/dL (12.0-15.0); Lymphocyte # 2.02 X10^3/ul (0.83-4.51); Lymphocyte % 36.5 % (19-41); Mean Corp Hgb Conc 32.9 g/dL (32-36); Mean Platelet Vol. 9.1 fl (6.2-12.0); Monocyte# 0.43 X10^3/uL; Monocyte% 7.8 % (0-10); NRBC Flagged by Analyzer 0 % (0-5); Neutrophil # 3.07 X10^3/uL (2.7-7.7); Neutrophil % 55.5 % (47-70); Platelet Count 228 K/mm3 (150-450); RBC Distribution Width CV 12.4 % (11.6-14.6); Red Blood Count 4.93 M/mm3 (4.2-5.4); White Blood Count 5.5 K/mm3 (4.4-11.0)
[2023-04-03 15:31] LABS: Absolute Lymphocyte Count 2.51 X10^3/uL (0.83-4.51); Absolute Neutrophil Count 1.5 X10^3/uL (2.0-7.7); Hematocrit 41.1 % (37-47); Hemoglobin 13.4 g/dL (12.0-15.0); Lymphocyte # 2.51 X10^3/ul (0.83-4.51); Lymphocyte % 55.2 % (19-41); Mean Corp Hgb Conc 32.6 g/dL (32-36); Mean Corpuscular Hgb 29.2 pg (27.0-32.0); Mean Corpuscular Volume 89.5 fL (81-99); Mean Platelet Vol. 9.3 fl (6.2-12.0); Monocyte# 0.52 X10^3/uL; Monocyte% 11.4 % (0-10); NRBC Flagged by Analyzer 0 % (0-5); Neutrophil # 1.51 X10^3/uL (2.7-7.7); Neutrophil % 33.2 % (47-70); Platelet Count 225 K/mm3 (150-450); RBC Distribution Width CV 12.9 % (11.6-14.6); RBC Distribution Width SD 41.7 fl (35.1-43.9); Red Blood Count 4.59 M/mm3 (4.2-5.4); White Blood Count 4.6 K/mm3 (4.4-11.0)
== END 2023-04-03 18:00 | disposition home or self-care (01) ==
LOC: LAB 14:52
PROVIDERS: PCP Family Medicine; Referring Provider Student in an Organized Health Care Education/Training Program; Visit Provider Student in an Organized Health Care Education/Training Program
DX: F31.9 Bipolar disorder, unspecified (principal)
CPT/HCPCS: 36415; 85025

== ENCOUNTER 2023-04-26 11:00 | Outpatient (RCR) | payer MEDICAID, SELFPAY ==
[2023-04-15 11:09] LABS: Absolute Lymphocyte Count 2.13 X10^3/uL (0.83-4.51); Absolute Neutrophil Count 4.6 X10^3/uL (2.0-7.7); Basophil# 0.01 X10^3/uL; Basophil% 0.1 % (0-1); Hematocrit 44.2 % (37-47); Hemoglobin 14.6 g/dL (12.0-15.0); Lymphocyte # 2.13 X10^3/ul (0.83-4.51); Mean Corpuscular Hgb 29.3 pg (27.0-32.0); Mean Corpuscular Volume 88.8 fL (81-99); Mean Platelet Vol. 9.3 fl (6.2-12.0); Monocyte# 0.35 X10^3/uL; Monocyte% 4.9 % (0-10); NRBC Flagged by Analyzer 0 % (0-5); Neutrophil # 4.59 X10^3/uL (2.7-7.7); Neutrophil % 64.7 % (47-70); Platelet Count 224 K/mm3 (150-450); RBC Distribution Width CV 12.5 % (11.6-14.6); RBC Distribution Width SD 40.8 fl (35.1-43.9); Red Blood Count 4.98 M/mm3 (4.2-5.4); White Blood Count 7.1 K/mm3 (4.4-11.0)
[2023-04-21 12:25] LABS: Absolute Lymphocyte Count 1.69 X10^3/uL (0.83-4.51); Absolute Neutrophil Count 4.7 X10^3/uL (2.0-7.7); Basophil# 0.01 X10^3/uL; Basophil% 0.1 % (0-1); Hematocrit 42.8 % (37-47); Hemoglobin 13.6 g/dL (12.0-15.0); Lymphocyte # 1.69 X10^3/ul (0.83-4.51); Mean Corp Hgb Conc 31.8 g/dL (32-36); Mean Corpuscular Hgb 28.4 pg (27.0-32.0); Mean Corpuscular Volume 89.4 fL (81-99); Mean Platelet Vol. 9.8 fl (6.2-12.0); Monocyte# 0.31 X10^3/uL; Monocyte% 4.6 % (0-10); NRBC Flagged by Analyzer 0 % (0-5); Neutrophil # 4.74 X10^3/uL (2.7-7.7); Neutrophil % 70.2 % (47-70); Platelet Count 241 K/mm3 (150-450); RBC Distribution Width CV 12.5 % (11.6-14.6); RBC Distribution Width SD 41.1 fl (35.1-43.9); Red Blood Count 4.79 M/mm3 (4.2-5.4); White Blood Count 6.8 K/mm3 (4.4-11.0)
[2023-04-26 11:12] LABS: Absolute Lymphocyte Count 2.26 X10^3/uL (0.83-4.51); Absolute Neutrophil Count 3.6 X10^3/uL (2.0-7.7); Hematocrit 41.8 % (37-47); Hemoglobin 13.9 g/dL (12.0-15.0); Lymphocyte # 2.26 X10^3/ul (0.83-4.51); Lymphocyte % 35.4 % (19-41); Mean Corp Hgb Conc 33.3 g/dL (32-36); Mean Corpuscular Hgb 29.1 pg (27.0-32.0); Mean Corpuscular Volume 87.6 fL (81-99); Mean Platelet Vol. 9.1 fl (6.2-12.0); Monocyte# 0.52 X10^3/uL; Monocyte% 8.2 % (0-10); NRBC Flagged by Analyzer 0 % (0-5); Neutrophil # 3.59 X10^3/uL (2.7-7.7); Neutrophil % 56.2 % (47-70); Platelet Count 220 K/mm3 (150-450); RBC Distribution Width CV 12.4 % (11.6-14.6); RBC Distribution Width SD 39.9 fl (35.1-43.9); Red Blood Count 4.77 M/mm3 (4.2-5.4); White Blood Count 6.4 K/mm3 (4.4-11.0)
== END 2023-05-08 23:30 | disposition home or self-care (01) ==
LOC: LAB 11:00
PROVIDERS: PCP Family Medicine; Referring Provider Student in an Organized Health Care Education/Training Program; Visit Provider Student in an Organized Health Care Education/Training Program
DX: F31.9 Bipolar disorder, unspecified (principal)
CPT/HCPCS: 36415; 85025

== ENCOUNTER 2023-05-31 11:23 | Outpatient (RCR) | payer MEDICAID, SELFPAY ==
[2023-05-12 10:05] LABS: Absolute Lymphocyte Count 2.15 X10^3/uL (0.83-4.51); Absolute Neutrophil Count 3.4 X10^3/uL (2.0-7.7); Basophil# 0.01 X10^3/uL; Basophil% 0.2 % (0-1); Hematocrit 42.2 % (37-47); Hemoglobin 13.4 g/dL (12.0-15.0); Lymphocyte # 2.15 X10^3/ul (0.83-4.51); Lymphocyte % 36.2 % (19-41); Mean Corp Hgb Conc 31.8 g/dL (32-36); Mean Corpuscular Hgb 28.3 pg (27.0-32.0); Mean Corpuscular Volume 89.2 fL (81-99); Mean Platelet Vol. 9.6 fl (6.2-12.0); Monocyte# 0.41 X10^3/uL; Monocyte% 6.9 % (0-10); NRBC Flagged by Analyzer 0 % (0-5); Neutrophil # 3.35 X10^3/uL (2.7-7.7); Neutrophil % 56.4 % (47-70); Platelet Count 232 K/mm3 (150-450); RBC Distribution Width CV 12.7 % (11.6-14.6); RBC Distribution Width SD 41.7 fl (35.1-43.9); Red Blood Count 4.73 M/mm3 (4.2-5.4); White Blood Count 5.9 K/mm3 (4.4-11.0)
[2023-05-16 15:46] LABS: Absolute Lymphocyte Count 2.22 X10^3/uL (0.83-4.51); Absolute Neutrophil Count 3.1 X10^3/uL (2.0-7.7); Basophil# 0.01 X10^3/uL; Basophil% 0.2 % (0-1); Hematocrit 40.3 % (37-47); Hemoglobin 13.3 g/dL (12.0-15.0); Lymphocyte # 2.22 X10^3/ul (0.83-4.51); Lymphocyte % 38.3 % (19-41); Mean Corpuscular Hgb 29.2 pg (27.0-32.0); Mean Corpuscular Volume 88.4 fL (81-99); Mean Platelet Vol. 9.1 fl (6.2-12.0); Monocyte# 0.44 X10^3/uL; Monocyte% 7.6 % (0-10); NRBC Flagged by Analyzer 0 % (0-5); Neutrophil # 3.11 X10^3/uL (2.7-7.7); Neutrophil % 53.7 % (47-70); Platelet Count 236 K/mm3 (150-450); RBC Distribution Width CV 12.9 % (11.6-14.6); RBC Distribution Width SD 41.9 fl (35.1-43.9); Red Blood Count 4.56 M/mm3 (4.2-5.4); White Blood Count 5.8 K/mm3 (4.4-11.0)
[2023-05-26 11:08] LABS: Absolute Lymphocyte Count 2.25 X10^3/uL (0.83-4.51); Absolute Neutrophil Count 2.8 X10^3/uL (2.0-7.7); Hematocrit 43.4 % (37-47); Hemoglobin 13.7 g/dL (12.0-15.0); Lymphocyte # 2.25 X10^3/ul (0.83-4.51); Lymphocyte % 40.9 % (19-41); Mean Corp Hgb Conc 31.6 g/dL (32-36); Mean Corpuscular Hgb 28.7 pg (27.0-32.0); Mean Platelet Vol. 9.4 fl (6.2-12.0); Monocyte# 0.43 X10^3/uL; Monocyte% 7.8 % (0-10); NRBC Flagged by Analyzer 0 % (0-5); Neutrophil % 50.9 % (47-70); Platelet Count 213 K/mm3 (150-450); RBC Distribution Width CV 12.8 % (11.6-14.6); RBC Distribution Width SD 42.8 fl (35.1-43.9); Red Blood Count 4.77 M/mm3 (4.2-5.4); White Blood Count 5.5 K/mm3 (4.4-11.0)
== END 2023-05-31 18:00 | disposition home or self-care (01) ==
LOC: LAB 11:23
PROVIDERS: PCP Family Medicine; Referring Provider Student in an Organized Health Care Education/Training Program; Visit Provider Student in an Organized Health Care Education/Training Program
DX: F31.9 Bipolar disorder, unspecified (principal)
CPT/HCPCS: 36415; 85025; 85610

== ENCOUNTER 2023-07-08 11:10 | Outpatient (RCR) | payer MEDICAID, SELFPAY ==
[2023-06-09 09:58] LABS: Absolute Lymphocyte Count 2.15 X10^3/uL (0.83-4.51); Absolute Neutrophil Count 2.4 X10^3/uL (2.0-7.7); Hematocrit 43.3 % (37-47); Hemoglobin 13.7 g/dL (12.0-15.0); Lymphocyte # 2.15 X10^3/ul (0.83-4.51); Lymphocyte % 43.8 % (19-41); Mean Corp Hgb Conc 31.6 g/dL (32-36); Mean Corpuscular Hgb 28.5 pg (27.0-32.0); Mean Platelet Vol. 9.3 fl (6.2-12.0); Monocyte# 0.37 X10^3/uL; Monocyte% 7.5 % (0-10); NRBC Flagged by Analyzer 0 % (0-5); Neutrophil # 2.38 X10^3/uL (2.7-7.7); Neutrophil % 48.5 % (47-70); Platelet Count 240 K/mm3 (150-450); RBC Distribution Width CV 12.7 % (11.6-14.6); Red Blood Count 4.81 M/mm3 (4.2-5.4); White Blood Count 4.9 K/mm3 (4.4-11.0)
[2023-06-15 11:15] LABS: Absolute Lymphocyte Count 2.28 X10^3/uL (0.83-4.51); Absolute Neutrophil Count 2.1 X10^3/uL (2.0-7.7); Hematocrit 42.7 % (37-47); Hemoglobin 13.7 g/dL (12.0-15.0); Lymphocyte # 2.28 X10^3/ul (0.83-4.51); Lymphocyte % 47.5 % (19-41); Mean Corp Hgb Conc 32.1 g/dL (32-36); Mean Corpuscular Hgb 28.4 pg (27.0-32.0); Mean Corpuscular Volume 88.4 fL (81-99); Mean Platelet Vol. 9.8 fl (6.2-12.0); Monocyte# 0.38 X10^3/uL; Monocyte% 7.9 % (0-10); NRBC Flagged by Analyzer 0 % (0-5); Neutrophil # 2.13 X10^3/uL (2.7-7.7); Neutrophil % 44.4 % (47-70); Platelet Count 236 K/mm3 (150-450); RBC Distribution Width CV 12.7 % (11.6-14.6); RBC Distribution Width SD 41.5 fl (35.1-43.9); Red Blood Count 4.83 M/mm3 (4.2-5.4); White Blood Count 4.8 K/mm3 (4.4-11.0)
[2023-06-23 10:16] LABS: Hemoglobin 13.3 g/dL (12.0-15.0); Mean Corp Hgb Conc 31.7 g/dL (32-36); Mean Corpuscular Hgb 28.8 pg (27.0-32.0); Mean Corpuscular Volume 90.9 fL (81-99); Mean Platelet Vol. 9.8 fl (6.2-12.0); Platelet Count 218 K/mm3 (150-450); Red Blood Count 4.62 M/mm3 (4.2-5.4)
[2023-07-08 12:15] LABS: Absolute Lymphocyte Count 3.54 X10^3/uL (0.83-4.51); Absolute Neutrophil Count 2.9 X10^3/uL (2.0-7.7); Basophil# 0.01 X10^3/uL; Basophil% 0.1 % (0-1); Hemoglobin 14.5 g/dL (12.0-15.0); Lymphocyte # 3.54 X10^3/ul (0.83-4.51); Lymphocyte % 50.9 % (19-41); Mean Corp Hgb Conc 32.2 g/dL (32-36); Mean Corpuscular Hgb 28.9 pg (27.0-32.0); Mean Corpuscular Volume 89.8 fL (81-99); Mean Platelet Vol. 9.8 fl (6.2-12.0); Monocyte% 7.2 % (0-10); NRBC Flagged by Analyzer 0 % (0-5); Neutrophil # 2.88 X10^3/uL (2.7-7.7); Neutrophil % 41.5 % (47-70); Platelet Count 237 K/mm3 (150-450); RBC Distribution Width CV 12.5 % (11.6-14.6); RBC Distribution Width SD 41.1 fl (35.1-43.9); Red Blood Count 5.01 M/mm3 (4.2-5.4)
== END 2023-07-08 18:00 | disposition home or self-care (01) ==
LOC: LAB 11:10
PROVIDERS: PCP Family Medicine; Referring Provider Student in an Organized Health Care Education/Training Program; Visit Provider Student in an Organized Health Care Education/Training Program
DX: F31.9 Bipolar disorder, unspecified (principal)
CPT/HCPCS: 36415; 85025; 85027

== ENCOUNTER 2023-08-05 10:58 | Outpatient (RCR) | payer MEDICAID, SELFPAY ==
[2023-07-14 10:16] LABS: Absolute Lymphocyte Count 1.94 X10^3/uL (0.83-4.51); Absolute Neutrophil Count 2.5 X10^3/uL (2.0-7.7); Basophil# 0.01 X10^3/uL; Basophil% 0.2 % (0-1); Hematocrit 44.8 % (37-47); Hemoglobin 13.8 g/dL (12.0-15.0); Lymphocyte # 1.94 X10^3/ul (0.83-4.51); Lymphocyte % 39.5 % (19-41); Mean Corp Hgb Conc 30.8 g/dL (32-36); Mean Corpuscular Hgb 28.3 pg (27.0-32.0); Mean Platelet Vol. 10.1 fl (6.2-12.0); Monocyte# 0.44 X10^3/uL; NRBC Flagged by Analyzer 0 % (0-5); Neutrophil # 2.51 X10^3/uL (2.7-7.7); Neutrophil % 51.1 % (47-70); Platelet Count 188 K/mm3 (150-450); RBC Distribution Width CV 12.4 % (11.6-14.6); RBC Distribution Width SD 42.2 fl (35.1-43.9); Red Blood Count 4.87 M/mm3 (4.2-5.4); White Blood Count 4.9 K/mm3 (4.4-11.0)
[2023-07-21 09:46] LABS: Absolute Lymphocyte Count 1.85 X10^3/uL (0.83-4.51); Absolute Neutrophil Count 2.1 X10^3/uL (2.0-7.7); Eosinophil# 0.01 X10^3/uL; Eosinophils% 0.2 % (0-5); Hematocrit 41.6 % (37-47); Hemoglobin 13.5 g/dL (12.0-15.0); Lymphocyte # 1.85 X10^3/ul (0.83-4.51); Lymphocyte % 43.3 % (19-41); Mean Corp Hgb Conc 32.5 g/dL (32-36); Mean Corpuscular Hgb 29.1 pg (27.0-32.0); Mean Corpuscular Volume 89.7 fL (81-99); Mean Platelet Vol. 9.1 fl (6.2-12.0); Monocyte# 0.26 X10^3/uL; Monocyte% 6.1 % (0-10); NRBC Flagged by Analyzer 0 % (0-5); Neutrophil # 2.14 X10^3/uL (2.7-7.7); Neutrophil % 50.2 % (47-70); Platelet Count 197 K/mm3 (150-450); RBC Distribution Width CV 12.7 % (11.6-14.6); RBC Distribution Width SD 41.5 fl (35.1-43.9); Red Blood Count 4.64 M/mm3 (4.2-5.4); White Blood Count 4.3 K/mm3 (4.4-11.0)
[2023-08-05 11:26] LABS: Absolute Lymphocyte Count 2.05 X10^3/uL (0.83-4.51); Absolute Neutrophil Count 2.2 X10^3/uL (2.0-7.7); Hematocrit 43.7 % (37-47); Hemoglobin 13.9 g/dL (12.0-15.0); Lymphocyte # 2.05 X10^3/ul (0.83-4.51); Lymphocyte % 44.2 % (19-41); Mean Corp Hgb Conc 31.8 g/dL (32-36); Mean Corpuscular Hgb 28.5 pg (27.0-32.0); Mean Corpuscular Volume 89.7 fL (81-99); Mean Platelet Vol. 9.2 fl (6.2-12.0); Monocyte# 0.36 X10^3/uL; Monocyte% 7.8 % (0-10); NRBC Flagged by Analyzer 0 % (0-5); Neutrophil # 2.22 X10^3/uL (2.7-7.7); Neutrophil % 47.8 % (47-70); Platelet Count 237 K/mm3 (150-450); RBC Distribution Width CV 12.6 % (11.6-14.6); RBC Distribution Width SD 41.6 fl (35.1-43.9); Red Blood Count 4.87 M/mm3 (4.2-5.4); White Blood Count 4.6 K/mm3 (4.4-11.0)
== END 2023-08-05 18:00 | disposition home or self-care (01) ==
LOC: LAB 10:58
PROVIDERS: PCP Family Medicine; Referring Provider Student in an Organized Health Care Education/Training Program; Visit Provider Student in an Organized Health Care Education/Training Program
DX: F31.9 Bipolar disorder, unspecified (principal)
CPT/HCPCS: 36415; 85025

== ENCOUNTER 2023-09-02 09:05 | Outpatient (RCR) | payer MEDICAID, SELFPAY ==
[2023-08-18 10:36] LABS: Absolute Lymphocyte Count 2.13 X10^3/uL (0.83-4.51); Absolute Neutrophil Count 2.6 X10^3/uL (2.0-7.7); Hematocrit 42.3 % (37-47); Hemoglobin 13.7 g/dL (12.0-15.0); Lymphocyte # 2.13 X10^3/ul (0.83-4.51); Lymphocyte % 41.5 % (19-41); Mean Corp Hgb Conc 32.4 g/dL (32-36); Mean Corpuscular Hgb 29.2 pg (27.0-32.0); Mean Corpuscular Volume 90.2 fL (81-99); Mean Platelet Vol. 9.5 fl (6.2-12.0); Monocyte# 0.37 X10^3/uL; Monocyte% 7.2 % (0-10); NRBC Flagged by Analyzer 0 % (0-5); Neutrophil # 2.62 X10^3/uL (2.7-7.7); Neutrophil % 51.1 % (47-70); Platelet Count 218 K/mm3 (150-450); RBC Distribution Width CV 12.5 % (11.6-14.6); RBC Distribution Width SD 41.1 fl (35.1-43.9); Red Blood Count 4.69 M/mm3 (4.2-5.4); White Blood Count 5.1 K/mm3 (4.4-11.0)
[2023-09-02 09:17] LABS: Absolute Lymphocyte Count 2.45 X10^3/uL (0.83-4.51); Absolute Neutrophil Count 1.7 X10^3/uL (2.0-7.7); Basophil# 0.01 X10^3/uL; Basophil% 0.2 % (0-1); Eosinophil# 0.01 X10^3/uL; Eosinophils% 0.2 % (0-5); Hematocrit 43.5 % (37-47); Hemoglobin 13.7 g/dL (12.0-15.0); Lymphocyte # 2.45 X10^3/ul (0.83-4.51); Lymphocyte % 53.8 % (19-41); Mean Corp Hgb Conc 31.5 g/dL (32-36); Mean Corpuscular Hgb 28.5 pg (27.0-32.0); Mean Corpuscular Volume 90.4 fL (81-99); Mean Platelet Vol. 9.2 fl (6.2-12.0); Monocyte# 0.36 X10^3/uL; Monocyte% 7.9 % (0-10); NRBC Flagged by Analyzer 0 % (0-5); Neutrophil % 37.5 % (47-70); Platelet Count 230 K/mm3 (150-450); RBC Distribution Width CV 12.3 % (11.6-14.6); RBC Distribution Width SD 40.6 fl (35.1-43.9); Red Blood Count 4.81 M/mm3 (4.2-5.4); White Blood Count 4.6 K/mm3 (4.4-11.0)
== END 2023-09-07 18:00 | disposition home or self-care (01) ==
LOC: LAB 09:05
PROVIDERS: PCP Family Medicine; Referring Provider Student in an Organized Health Care Education/Training Program; Visit Provider Student in an Organized Health Care Education/Training Program
DX: F31.9 Bipolar disorder, unspecified (principal)
CPT/HCPCS: 36415; 85025

== ENCOUNTER 2023-09-16 11:56 | Outpatient (RCR) | payer MEDICAID, SELFPAY ==
[2023-09-16 12:11] LABS: Absolute Lymphocyte Count 2.07 X10^3/uL (0.83-4.51); Absolute Neutrophil Count 3.1 X10^3/uL (2.0-7.7); Basophil# 0.01 X10^3/uL; Basophil% 0.2 % (0-1); Eosinophil# 0.01 X10^3/uL; Eosinophils% 0.2 % (0-5); Hematocrit 42.4 % (37-47); Hemoglobin 13.7 g/dL (12.0-15.0); Lymphocyte # 2.07 X10^3/ul (0.83-4.51); Mean Corp Hgb Conc 32.3 g/dL (32-36); Mean Corpuscular Hgb 28.6 pg (27.0-32.0); Mean Corpuscular Volume 88.5 fL (81-99); Mean Platelet Vol. 9.3 fl (6.2-12.0); Monocyte# 0.36 X10^3/uL; Monocyte% 6.4 % (0-10); NRBC Flagged by Analyzer 0 % (0-5); Neutrophil # 3.12 X10^3/uL (2.7-7.7); Neutrophil % 55.7 % (47-70); Platelet Count 224 K/mm3 (150-450); RBC Distribution Width CV 12.3 % (11.6-14.6); RBC Distribution Width SD 39.8 fl (35.1-43.9); Red Blood Count 4.79 M/mm3 (4.2-5.4); White Blood Count 5.6 K/mm3 (4.4-11.0)
== END 2023-10-08 18:00 | disposition home or self-care (01) ==
LOC: LAB 11:56
PROVIDERS: PCP Family Medicine; Referring Provider Student in an Organized Health Care Education/Training Program; Visit Provider Student in an Organized Health Care Education/Training Program
DX: F31.9 Bipolar disorder, unspecified (principal)
CPT/HCPCS: 36415; 85025

== ENCOUNTER → 2023-09-30 | Outpatient (CLI) | payer MEDICAID, SELFPAY ==
[2023-09-30 12:21] LABS: Absolute Lymphocyte Count 2.52 X10^3/uL (0.83-4.51); Absolute Neutrophil Count 3.5 X10^3/uL (2.0-7.7); Basophil# 0.01 X10^3/uL; Basophil% 0.2 % (0-1); Hematocrit 43.2 % (37-47); Hemoglobin 13.5 g/dL (12.0-15.0); Lymphocyte # 2.52 X10^3/ul (0.83-4.51); Lymphocyte % 38.9 % (19-41); Mean Corp Hgb Conc 31.3 g/dL (32-36); Mean Corpuscular Hgb 28.4 pg (27.0-32.0); Mean Corpuscular Volume 90.8 fL (81-99); Mean Platelet Vol. 9.2 fl (6.2-12.0); Monocyte# 0.46 X10^3/uL; Monocyte% 7.1 % (0-10); NRBC Flagged by Analyzer 0 % (0-5); Neutrophil # 3.46 X10^3/uL (2.7-7.7); Neutrophil % 53.5 % (47-70); Platelet Count 211 K/mm3 (150-450); RBC Distribution Width CV 12.4 % (11.6-14.6); RBC Distribution Width SD 41.2 fl (35.1-43.9); Red Blood Count 4.76 M/mm3 (4.2-5.4); White Blood Count 6.5 K/mm3 (4.4-11.0)
== END | disposition home or self-care (01) ==
LOC: LAB 12:08
PROVIDERS: PCP Family Medicine; Visit Provider Student in an Organized Health Care Education/Training Program
DX: F31.9 Bipolar disorder, unspecified (principal)
CPT/HCPCS: 36415; 85025

== ENCOUNTER 2023-11-08 10:34 | Outpatient (RCR) | payer MEDICAID, SELFPAY ==
[2023-10-14 11:00] LABS: Absolute Lymphocyte Count 2.54 X10^3/uL (0.83-4.51); Absolute Neutrophil Count 2.8 X10^3/uL (2.0-7.7); Basophil# 0.01 X10^3/uL; Basophil% 0.2 % (0-1); Eosinophil# 0.02 X10^3/uL; Eosinophils% 0.3 % (0-5); Hematocrit 41.7 % (37-47); Hemoglobin 13.9 g/dL (12.0-15.0); Lymphocyte # 2.54 X10^3/ul (0.83-4.51); Lymphocyte % 43.6 % (19-41); Mean Corp Hgb Conc 33.3 g/dL (32-36); Mean Corpuscular Hgb 29.6 pg (27.0-32.0); Mean Corpuscular Volume 88.7 fL (81-99); Mean Platelet Vol. 9.5 fl (6.2-12.0); Monocyte# 0.45 X10^3/uL; Monocyte% 7.7 % (0-10); NRBC Flagged by Analyzer 0 % (0-5); Platelet Count 214 K/mm3 (150-450); RBC Distribution Width CV 12.4 % (11.6-14.6); RBC Distribution Width SD 40.6 fl (35.1-43.9); White Blood Count 5.8 K/mm3 (4.4-11.0)
[2023-10-27 14:26] LABS: Absolute Lymphocyte Count 2.15 X10^3/uL (0.83-4.51); Absolute Neutrophil Count 3.6 X10^3/uL (2.0-7.7); Basophil# 0.01 X10^3/uL; Basophil% 0.2 % (0-1); Eosinophil# 0.02 X10^3/uL; Eosinophils% 0.3 % (0-5); Hematocrit 40.3 % (37-47); Hemoglobin 13.1 g/dL (12.0-15.0); Lymphocyte # 2.15 X10^3/ul (0.83-4.51); Lymphocyte % 34.6 % (19-41); Mean Corp Hgb Conc 32.5 g/dL (32-36); Mean Corpuscular Volume 89.4 fL (81-99); Mean Platelet Vol. 9.6 fl (6.2-12.0); Monocyte# 0.44 X10^3/uL; Monocyte% 7.1 % (0-10); NRBC Flagged by Analyzer 0 % (0-5); Neutrophil # 3.59 X10^3/uL (2.7-7.7); Neutrophil % 57.6 % (47-70); Platelet Count 200 K/mm3 (150-450); RBC Distribution Width CV 12.8 % (11.6-14.6); RBC Distribution Width SD 42.4 fl (35.1-43.9); Red Blood Count 4.51 M/mm3 (4.2-5.4); White Blood Count 6.2 K/mm3 (4.4-11.0)
[2023-11-08 11:09] LABS: Absolute Lymphocyte Count 2.04 X10^3/uL (0.83-4.51); Absolute Neutrophil Count 3.8 X10^3/uL (2.0-7.7); Basophil# 0.01 X10^3/uL; Basophil% 0.2 % (0-1); Eosinophil# 0.01 X10^3/uL; Eosinophils% 0.2 % (0-5); Hematocrit 43.3 % (37-47); Hemoglobin 13.8 g/dL (12.0-15.0); Lymphocyte # 2.04 X10^3/ul (0.83-4.51); Mean Corp Hgb Conc 31.9 g/dL (32-36); Mean Corpuscular Hgb 28.5 pg (27.0-32.0); Mean Corpuscular Volume 89.5 fL (81-99); Mean Platelet Vol. 9.8 fl (6.2-12.0); Monocyte# 0.53 X10^3/uL; Monocyte% 8.3 % (0-10); NRBC Flagged by Analyzer 0 % (0-5); Neutrophil # 3.77 X10^3/uL (2.7-7.7); Platelet Count 224 K/mm3 (150-450); RBC Distribution Width CV 12.5 % (11.6-14.6); RBC Distribution Width SD 41.1 fl (35.1-43.9); Red Blood Count 4.84 M/mm3 (4.2-5.4); White Blood Count 6.4 K/mm3 (4.4-11.0)
== END 2023-11-08 18:00 | disposition home or self-care (01) ==
LOC: LAB 10:34
PROVIDERS: PCP Family Medicine; Referring Provider Student in an Organized Health Care Education/Training Program; Visit Provider Student in an Organized Health Care Education/Training Program
DX: F31.9 Bipolar disorder, unspecified (principal)
CPT/HCPCS: 36415; 85025

== ENCOUNTER 2023-11-25 09:42 | Outpatient (RCR) | payer MEDICAID, SELFPAY ==
[2023-11-25 09:55] LABS: Absolute Lymphocyte Count 2.48 X10^3/uL (0.83-4.51); Absolute Neutrophil Count 2.9 X10^3/uL (2.0-7.7); Basophil# 0.02 X10^3/uL; Basophil% 0.3 % (0-1); Eosinophil# 0.09 X10^3/uL; Eosinophils% 1.5 % (0-5); Hematocrit 41.7 % (37-47); Hemoglobin 13.3 g/dL (12.0-15.0); Lymphocyte # 2.48 X10^3/ul (0.83-4.51); Lymphocyte % 41.2 % (19-41); Mean Corp Hgb Conc 31.9 g/dL (32-36); Mean Corpuscular Hgb 28.2 pg (27.0-32.0); Mean Corpuscular Volume 88.3 fL (81-99); Mean Platelet Vol. 9.2 fl (6.2-12.0); Monocyte# 0.48 X10^3/uL; NRBC Flagged by Analyzer 0 % (0-5); Neutrophil # 2.93 X10^3/uL (2.7-7.7); Neutrophil % 48.7 % (47-70); Platelet Count 240 K/mm3 (150-450); RBC Distribution Width CV 12.6 % (11.6-14.6); RBC Distribution Width SD 40.7 fl (35.1-43.9); Red Blood Count 4.72 M/mm3 (4.2-5.4)
== END 2023-12-07 18:00 | disposition home or self-care (01) ==
LOC: LAB 09:42
PROVIDERS: PCP Family Medicine; Referring Provider Student in an Organized Health Care Education/Training Program; Visit Provider Student in an Organized Health Care Education/Training Program
DX: F31.9 Bipolar disorder, unspecified (principal)
CPT/HCPCS: 36415; 85025

== ENCOUNTER 2024-01-04 12:28 | Outpatient (RCR) | payer MEDICAID, SELFPAY ==
[2023-12-08 10:15] LABS: Absolute Lymphocyte Count 1.96 X10^3/uL (0.83-4.51); Absolute Neutrophil Count 2.8 X10^3/uL (2.0-7.7); Basophil# 0.02 X10^3/uL; Basophil% 0.4 % (0-1); Eosinophil# 0.05 X10^3/uL; Hematocrit 41.1 % (37-47); Hemoglobin 13.2 g/dL (12.0-15.0); Lymphocyte # 1.96 X10^3/ul (0.83-4.51); Lymphocyte % 37.5 % (19-41); Mean Corp Hgb Conc 32.1 g/dL (32-36); Mean Corpuscular Hgb 29.1 pg (27.0-32.0); Mean Corpuscular Volume 90.7 fL (81-99); Mean Platelet Vol. 9.6 fl (6.2-12.0); Monocyte# 0.43 X10^3/uL; Monocyte% 8.2 % (0-10); NRBC Flagged by Analyzer 0 % (0-5); Neutrophil # 2.76 X10^3/uL (2.7-7.7); Neutrophil % 52.7 % (47-70); Platelet Count 197 K/mm3 (150-450); RBC Distribution Width CV 12.5 % (11.6-14.6); RBC Distribution Width SD 41.3 fl (35.1-43.9); Red Blood Count 4.53 M/mm3 (4.2-5.4); White Blood Count 5.2 K/mm3 (4.4-11.0)
[2023-12-19 10:15] LABS: Absolute Lymphocyte Count 2.46 X10^3/uL (0.83-4.51); Absolute Neutrophil Count 3.2 X10^3/uL (2.0-7.7); Basophil# 0.02 X10^3/uL; Basophil% 0.3 % (0-1); Eosinophils% 1.6 % (0-5); Hematocrit 43.9 % (37-47); Lymphocyte # 2.46 X10^3/ul (0.83-4.51); Lymphocyte % 39.2 % (19-41); Mean Corp Hgb Conc 31.9 g/dL (32-36); Mean Corpuscular Hgb 28.6 pg (27.0-32.0); Mean Corpuscular Volume 89.6 fL (81-99); Monocyte# 0.49 X10^3/uL; Monocyte% 7.8 % (0-10); NRBC Flagged by Analyzer 0 % (0-5); Neutrophil % 50.9 % (47-70); Platelet Count 220 K/mm3 (150-450); RBC Distribution Width CV 12.6 % (11.6-14.6); RBC Distribution Width SD 41.2 fl (35.1-43.9); White Blood Count 6.3 K/mm3 (4.4-11.0)
[2024-01-04 13:12] LABS: Absolute Lymphocyte Count 2.61 X10^3/uL (0.83-4.51); Absolute Neutrophil Count 3.7 X10^3/uL (2.0-7.7); Basophil# 0.02 X10^3/uL; Basophil% 0.3 % (0-1); Eosinophil# 0.06 X10^3/uL; Eosinophils% 0.9 % (0-5); Hematocrit 44.4 % (37-47); Hemoglobin 14.3 g/dL (12.0-15.0); Lymphocyte # 2.61 X10^3/ul (0.83-4.51); Lymphocyte % 37.6 % (19-41); Mean Corp Hgb Conc 32.2 g/dL (32-36); Mean Corpuscular Hgb 28.9 pg (27.0-32.0); Mean Corpuscular Volume 89.9 fL (81-99); Mean Platelet Vol. 9.7 fl (6.2-12.0); Monocyte# 0.49 X10^3/uL; Monocyte% 7.1 % (0-10); NRBC Flagged by Analyzer 0 % (0-5); Neutrophil # 3.74 X10^3/uL (2.7-7.7); Neutrophil % 53.8 % (47-70); Platelet Count 240 K/mm3 (150-450); RBC Distribution Width CV 12.5 % (11.6-14.6); Red Blood Count 4.94 M/mm3 (4.2-5.4); White Blood Count 6.9 K/mm3 (4.4-11.0)
== END 2024-01-06 18:00 | disposition home or self-care (01) ==
LOC: LAB 12:28
PROVIDERS: PCP Family Medicine; Referring Provider Student in an Organized Health Care Education/Training Program; Visit Provider Student in an Organized Health Care Education/Training Program
DX: F31.9 Bipolar disorder, unspecified (principal)
CPT/HCPCS: 36415; 85025

== ENCOUNTER 2024-01-31 11:37 | Outpatient (RCR) | payer MEDICAID, SELFPAY ==
[2024-01-19 09:51] LABS: Absolute Lymphocyte Count 2.18 X10^3/uL (0.83-4.51); Absolute Neutrophil Count 3.7 X10^3/uL (2.0-7.7); Basophil# 0.01 X10^3/uL; Basophil% 0.2 % (0-1); Eosinophil# 0.09 X10^3/uL; Eosinophils% 1.4 % (0-5); Hematocrit 41.8 % (37-47); Hemoglobin 13.5 g/dL (12.0-15.0); Lymphocyte # 2.18 X10^3/ul (0.83-4.51); Lymphocyte % 33.4 % (19-41); Mean Corp Hgb Conc 32.3 g/dL (32-36); Mean Corpuscular Volume 89.7 fL (81-99); Mean Platelet Vol. 9.6 fl (6.2-12.0); Monocyte# 0.51 X10^3/uL; Monocyte% 7.8 % (0-10); NRBC Flagged by Analyzer 0 % (0-5); Neutrophil # 3.72 X10^3/uL (2.7-7.7); Platelet Count 201 K/mm3 (150-450); RBC Distribution Width CV 12.4 % (11.6-14.6); RBC Distribution Width SD 40.7 fl (35.1-43.9); Red Blood Count 4.66 M/mm3 (4.2-5.4); White Blood Count 6.5 K/mm3 (4.4-11.0)
[2024-01-31 12:39] LABS: Absolute Lymphocyte Count 2.09 X10^3/uL (0.83-4.51); Absolute Neutrophil Count 2.1 X10^3/uL (2.0-7.7); Basophil# 0.02 X10^3/uL; Basophil% 0.4 % (0-1); Eosinophil# 0.08 X10^3/uL; Eosinophils% 1.7 % (0-5); Hematocrit 40.5 % (37-47); Hemoglobin 13.1 g/dL (12.0-15.0); Lymphocyte # 2.09 X10^3/ul (0.83-4.51); Lymphocyte % 43.9 % (19-41); Mean Corp Hgb Conc 32.3 g/dL (32-36); Mean Corpuscular Hgb 29.1 pg (27.0-32.0); Mean Platelet Vol. 9.7 fl (6.2-12.0); Monocyte# 0.42 X10^3/uL; Monocyte% 8.8 % (0-10); NRBC Flagged by Analyzer 0 % (0-5); Neutrophil # 2.14 X10^3/uL (2.7-7.7); Platelet Count 214 K/mm3 (150-450); RBC Distribution Width CV 12.3 % (11.6-14.6); RBC Distribution Width SD 40.1 fl (35.1-43.9); White Blood Count 4.8 K/mm3 (4.4-11.0)
== END 2024-02-06 22:30 | disposition home or self-care (01) ==
LOC: LAB 11:37
PROVIDERS: PCP Family Medicine; Referring Provider Student in an Organized Health Care Education/Training Program; Visit Provider Student in an Organized Health Care Education/Training Program
DX: F31.9 Bipolar disorder, unspecified (principal); Z51.81 Encounter for therapeutic drug level monitoring
CPT/HCPCS: 36415; 85025

== ENCOUNTER 2024-02-14 10:08 | Outpatient (RCR) | payer MEDICAID, SELFPAY ==
[2024-02-14 10:40] LABS: Absolute Lymphocyte Count 1.97 X10^3/uL (0.83-4.51); Absolute Neutrophil Count 2.7 X10^3/uL (2.0-7.7); Basophil# 0.01 X10^3/uL; Basophil% 0.2 % (0-1); Eosinophil# 0.05 X10^3/uL; Eosinophils% 0.9 % (0-5); Hematocrit 42.5 % (37-47); Hemoglobin 13.7 g/dL (12.0-15.0); Lymphocyte # 1.97 X10^3/ul (0.83-4.51); Lymphocyte % 37.2 % (19-41); Mean Corp Hgb Conc 32.2 g/dL (32-36); Mean Corpuscular Hgb 29.3 pg (27.0-32.0); Mean Platelet Vol. 9.6 fl (6.2-12.0); Monocyte# 0.55 X10^3/uL; Monocyte% 10.4 % (0-10); NRBC Flagged by Analyzer 0 % (0-5); Neutrophil # 2.71 X10^3/uL (2.7-7.7); Neutrophil % 51.1 % (47-70); Platelet Count 210 K/mm3 (150-450); RBC Distribution Width CV 12.6 % (11.6-14.6); RBC Distribution Width SD 41.2 fl (35.1-43.9); Red Blood Count 4.67 M/mm3 (4.2-5.4); White Blood Count 5.3 K/mm3 (4.4-11.0)
== END 2024-03-05 18:00 | disposition home or self-care (01) ==
LOC: LAB 10:08
PROVIDERS: Psychiatry & Neurology Neurology; PCP Family Medicine; Referring Provider Student in an Organized Health Care Education/Training Program; Visit Provider Student in an Organized Health Care Education/Training Program
DX: F31.9 Bipolar disorder, unspecified (principal); G40.909 Epilepsy, unspecified, not intractable, without status epilepticus; Z51.81 Encounter for therapeutic drug level monitoring
CPT/HCPCS: 36415; 82140; 82542; 85025

== ENCOUNTER 2024-03-29 12:17 | Outpatient (RCR) | payer MEDICAID, SELFPAY ==
[2024-03-29 13:19] LABS: Absolute Lymphocyte Count 2.33 X10^3/uL (0.83-4.51); Absolute Neutrophil Count 2.5 X10^3/uL (2.0-7.7); Basophil# 0.02 X10^3/uL; Basophil% 0.4 % (0-1); Eosinophil# 0.08 X10^3/uL; Eosinophils% 1.5 % (0-5); Hematocrit 37.9 % (37-47); Lymphocyte # 2.33 X10^3/ul (0.83-4.51); Mean Corp Hgb Conc 31.7 g/dL (32-36); Mean Corpuscular Volume 91.5 fL (81-99); Monocyte# 0.38 X10^3/uL; Monocyte% 7.2 % (0-10); NRBC Flagged by Analyzer 0 % (0-5); Neutrophil # 2.47 X10^3/uL (2.7-7.7); Neutrophil % 46.7 % (47-70); Platelet Count 207 K/mm3 (150-450); RBC Distribution Width CV 12.7 % (11.6-14.6); RBC Distribution Width SD 41.9 fl (35.1-43.9); Red Blood Count 4.14 M/mm3 (4.2-5.4); White Blood Count 5.3 K/mm3 (4.4-11.0)
== END 2024-03-29 18:00 | disposition home or self-care (01) ==
LOC: LAB 12:17
PROVIDERS: PCP Family Medicine; Referring Provider Student in an Organized Health Care Education/Training Program; Visit Provider Student in an Organized Health Care Education/Training Program
DX: F31.9 Bipolar disorder, unspecified (principal)
CPT/HCPCS: 36415; 85025

== ENCOUNTER 2024-04-14 17:19 | Emergency (ER) | payer MEDICAID, SELFPAY ==
[2024-04-14 17:20] VITALS: BP 124/88; PULSE 128; RESP 18; TEMP 36.6; O2SAT 99; BMI 24.6
--- NOTE | 2024-04-14 17:47 | EDS_ITS ---
HPI HPI - Psych History of Present Illness Chief Complaint: Suicidal Informant: patient Onset/Context/Timing Onset: Today Context: Gradual Onset Conflict: Family Timing: Continuous Worsened by: Situational factors (Problems with her siblings that) Relieved by: Thinking about her animal Associated Symptoms Associated Symptoms - Psych: Positive for Depressed and Suicidal Thoughts; Negative for Change in Eating, Change in sleeping, Decreased Interest, Paranoia, Visual Hallucinations or Auditory Hallucinations Specific plan (suicidal thought): Choking herself, and suffocating herself Narrative Narrative: Patient presents with depression and suicidal attempt that occurred today. Patient states she attempted to choke herself with her hands. Patient states that after that did not work, she tried to suffocate herself by putting her hands over her mouth and nose. Patient states she has a history of depression and anxiety. Patient states that there was stress amongst her siblings today th at made her want to hurt herself. Patient states that her depression gets better when she starts thinking about her animals. Patient states she ran away from home today and was gone for about 2 hours when her father realized she was gone and found her. Patient did write a suicide note to her mother. [facility] Medical History Medication monitoring encounter Encounter for monitoring cardiotoxic drug therapy PTSD (post-traumatic stress disorder) Thyroid disease History of reactive attachment disorder Reactive hypoglycemia Bipolar 1 disorder ADHD alcohol spectrum disorder Anxiety Migraines GERD (gastroesophageal reflux disease) Asthma Home Medications ?Medication ?Instructions ?Recorded ?Last Taken ?Type Omeprazole [Prilosec] 40 mg PO DAILY 07/10/16 07/10/16 History cetirizine 10 mg tablet (All Day 10 mg PO DAILY 07/10/16 07/10/16 History Allergy (cetirizine)) Fish Oil 1,000 mg Softgel 500 mg PO BID 07/11/16 Unknown History cholecalciferol (vitamin D3) 25 2,000 unit PO DAILY 07/11/16 Unknown History mcg (1,000 unit) tablet (Vitamin D3) multivitamin (Daily Multiple 2 ea PO DAILY 07/11/16 Unknown History tablet) levonorgestrel-ethinyl estradiol 1 tab PO DAILY 02/25/21 Unknown History 90 mcg-20 mcg (28) tablet levothyroxine 25 mcg capsule 25 mcg PO DAILY 02/25/21 Unknown History polyethylene glycol 3350 17 gram 17 g PO DAILY 02/25/21 Unknown History oral powder packet (Miralax) rizatriptan 5 mg tablet 5 mg PO Q2H PRN HEADACHES 02/25/21 Unknown History famotidine 20 mg tablet 20 mg PO BID 09/16/22 Unknown History albuterol sulfate 90 mcg/actuation 2 puff inhalation Q6H PRN 10/24/22 Unknown History aerosol inhaler Shortness Of Breath Or Wheezing lorazepam 1 mg tablet 1 mg PO BID PRN agitation #60 tabs 04/05/23 Unknown Rx hydroxyzine HCl 25 mg tablet 25 mg PO TID PRN anxiety #90 tabs 08/16/23 Unknown Rx lamotrigine 200 mg tablet 200 mg PO BID #60 tabs 11/15/23 Unknown Rx clozapine 100 mg tablet See Rx Instructions .Route 02/05/24 Unknown Rx .COMPLEX #28 tabs clozapine 50 mg tablet See Rx Instructions .Route 02/05/24 Unknown Rx .COMPLEX #28 tabs fluoxetine 40 mg capsule See Rx Instructions .Route 02/05/24 Unknown Rx .COMPLEX #28 caps prazosin 5 mg capsule See Rx Instructions .Route 02/05/24 Unknown Rx .COMPLEX #28 caps Allergy/AdvReac Type Severity Reaction Status Date / Time No Known Allergies Allergy Verified 04/14/24 17:20 Family History Unknown Adopted Surgical History no surgical history no surgical history Social History Smoking Status: Never smoker alcohol intake: never substance use type: does not use seatbelt use: always do you feel safe at home: Yes ROS ROS ED Constitutional Constitutional ED: Denies chills or fever(s) Eyes Eyes: Denies blurry vision or change in vision ENT ENT ED: Denies rhinorrhea or sore throat Cardiovascular Cardiovascular: Denies chest pain or palpitations Respiratory/Chest Respiratory/Chest: Denies cough or dyspnea Gastrointestinal Gastrointestinal: Denies nausea or vomiting Genitourinary Genitourinary ED: Denies dysuria or hematuria Musculoskeletal Musculoskeletal: Denies back pain or neck pain Integumentary Denies abscess or rash Neurologic Neurologic: Denies headache(s) or weakness Psychiatric Psychiatric: Reports depression, suicidal ideation and suicidal thoughts Allergic/Immunologic Allergic/Immunologic ED: Denies mouth swelling or urticaria EXAM Physical Exam Const Vital Signs: 04/14/24 17:20 Temperature 97.9 F Temperature Source Temporal Pulse Rate 128 H Respiratory Rate 18 Blood Pressure 124/88 H Blood Pressure Mean 100 Pulse Ox 99 Oxygen Delivery Method Room Air Positive well nourished and well developed General Appearance ED: well developed and NAD HEENT Reports moist mucous membranes normocephalic Neck supple and no JVD Resp normal respiratory effort and clear to auscultation bilaterally Cardio Rate: regular rate Rhythm: regular rhythm GI non-tender and non-distended Palpation: soft Extremity normal to inspection Neuro oriented x3, CN's II-XII intact bilaterally and no sensory deficits noted [place] Coma Scale: document GCS findings Spontaneous Obeys Commands Oriented 15 Sensorium / Orientation: alert Motor Exam: strength 5/5 throughout Psych mental status grossly normal Attitude: calm Speech: normal speech Mood & Affect: depressed and flat affect Thought Content: suicidality, No phobia(s), No delusion(s) and No hallucination(s) Insight: insight good Judgement: judgement good MDM MDM MDM Narrative Medical decision making narrative: Medical screening labs will be obtained. CBC will be obtained to assess for leukocytosis and anemia. Basic metabolic profile will be obtained to assess for electrolyte abnormality and renal function. Serum hCG will be obtained to assess for . Urine drug screen will be obtained to assess for sub stance abuse. Serum alcohol level will be obtained to assess for alcohol intoxication. Lab Data Attestation: I reviewed the patient's lab results. Lab results narrative: CBC was reviewed and was within normal limits. Basic metabolic profile was reviewed and was within normal limits. Serum hCG was reviewed and was negative. Urine tox screen was reviewed and was negative. Serum alcohol level was reviewed and was less than 3.0. Labs: Laboratory Results - last 24 hr 04/14/24 17:59 WBC 6.8 RBC 4.91 Hgb 14.2 Hct 44.2 MCV 90.0 MCH 28.9 MCHC 32.1 RDW Std Deviation 40.7 RDW Coeff of Rito 12.3 Plt Count 224 MPV 9.3 Immature Gran % (Auto) 0.300 Neut % (Auto) 64.1 Lymph % (Auto) 29.3 Warren % (Auto) 5.3 Eos % (Auto) 0.7 Baso % (Auto) 0.3 Absolute Neuts (auto) 4.4 Absolute Lymphs (auto) 1.99 Nucleated RBC % 0 Sodium 142 Potassium 4.0 Chloride 108 H Carbon Dioxide 28.0 Anion Gap 6 BUN 12 Creatinine 0.80 Estim Creat Clear Calc 84.48 Est GFR (MDRD) Af Amer 111 Est GFR (MDRD) Non-Af 91 BUN/Creatinine Ratio 15.0 Glucose 102 Calcium 9.1 Serum , Qual NEGATIVE Urine Opiates Screen NEGATIVE Urine Methadone Screen NEGATIVE Ur Barbiturates Screen NEGATIVE Ur Phencyclidine Scrn NEGATIVE Ur Amphetamines Screen NEGATIVE MDMA (Ecstasy) Screen NEGATIVE U Benzodiazepines Scrn NEGATIVE Urine Cocaine Screen NEGATIVE U Cannabinoids Screen NEGATIVE Ur Drug Screen Comment Ethyl Alcohol < 3.0 Treatment and Re-Evaluation Narrative: Patient is medically cleared for crisis evaluation. Crisis was in to evaluate the patient and recommended the patient be placed in psychiatric facility. I am in agreement with this. Crisis will attempt placement. Care of the patient will be turned over to the oncoming physician pending psychiatric placement. [place] slip and transfer form was filled out and placed on the chart. Discharge Plan Triage Chief Complaint: Suicidal ED Provider: Javier Farrell Dx/Rx/DC Orders Clinical Impression: Depression, Suicide attempt Prescriptions: No Action albuterol sulfate 90 mcg/actuation HFA aerosol inhaler 2 puff inhalation Q6H PRN (Reason: Shortness Of Breath Or Wheezing) lorazepam 1 mg tablet 1 mg PO BID PRN (Reason: agitation) Qty: 60 2RF hydroxyzine HCl 25 mg tablet 25 mg PO TID PRN (Reason: anxiety) Qty: 90 2RF lamotrigine 200 mg tablet 200 mg PO BID Qty: 60 4RF cetirizine [All Day Allergy (cetirizine)] 10 MG tablet 10 mg PO DAILY Omeprazole [Prilosec] 40 MG capsule 40 mg PO DAILY multivitamin [Daily Multiple] 1 EACH tablet 2 ea PO DAILY cholecalciferol (vitamin D3) [Vitamin D3] 1,000 UNIT tablet 2,000 unit PO DAILY Fish Oil 1,000 mg Softgel 500 mg PO BID polyethylene glycol 3350 [Miralax] 17 gram Powder In Packet 17 g PO DAILY rizatriptan 5 mg Tablet 5 mg PO Q2H PRN (Reason: HEADACHES) levonorgestrel-ethinyl estrad 90-20 mcg (28) Tablet 1 tab PO DAILY levothyroxine 25 mcg Capsule 25 mcg PO DAILY famotidine 20 mg Tablet 20 mg PO BID clozapine 50 mg tablet See Rx Instructions .ROUTE .COMPLEX Qty: 28 2RF Dose Instruction: TAKE 1 TABLET BY MOUTH EVERY MORNING Rx Instructions: TAKE 1 TABLET BY MOUTH EVERY MORNING fluoxetine 40 mg capsule See Rx Instructions .ROUTE .COMPLEX Qty: 28 2RF Dose Instruction: TAKE 1 CAPSULE BY MOUTH DAILY Rx Instructions: TAKE 1 CAPSULE BY MOUTH DAILY prazosin 5 mg capsule See Rx Instructions .ROUTE .COMPLEX Qty: 28 2RF Dose Instruction: TAKE 1 CAPSULE BY MOUTH DAILY Rx Instructions: TAKE 1 CAPSULE BY MOUTH DAILY clozapine 100 mg tablet See Rx Instructions .ROUTE .COMPLEX Qty: 28 2RF Dose Instruction: TAKE 1 TABLET BY MOUTH AT BEDTIME Rx Instructions: TAKE 1 TABLET BY MOUTH AT BEDTIME Primary Care Provider: Jerry Coles Referrals: Jerry Coles MD [Primary Care Provider] - Print Language: Luxembourger Disposition Disposition: Psychiatric Hospital or Unit
[2024-04-14 18:18] LABS: Internal QC Validated? YES +Cl - CLEAR BKGD; Pregnancy, Serum, hCG Quali. NEGATIVE Negative
[2024-04-14 18:23] LABS: Anion Gap 6 (5-15); BUN 12 mg/dL (7-18); Calcium,Total 9.1 mg/dL (8.5-10.1); Chloride 108 mmol/L (98-107); EST Glomerular Filtration Rate 91 mL/min (>60); Est Glom Filt Rate - Afr Amer 111 mL/min (>60); Estimated Creatinine Clearance 84.48 ml/min; Glucose 102 mg/dL (74-106); Sodium Level 142 mmol/L (136-145)
[2024-04-14 18:25] LABS: Alcohol, Blood (Medical)-Serum < 3.0 mg/dL
[2024-04-14 18:31] LABS: Amphetamine Urine VISTA NEGATIVE (<1000 ng/mL); Barbiturate Urine VISTA NEGATIVE (< 200 ng/mL); Benzodiazepine Urine VISTA NEGATIVE (< 200 ng/mL); Cocaine Urine VISTA NEGATIVE (< 300 ng/mL); Ecstacy Urine VISTA NEGATIVE (< 500 ng/mL); Methadone Urine VISTA NEGATIVE (< 300 ng/mL); PCP Urine VISTA NEGATIVE (< 25 ng/mL); THC Urine VISTA NEGATIVE (< 50 ng/mL); Vista UDS pH Range 5
[2024-04-14 18:32] LABS: Absolute Lymphocyte Count 1.99 X10^3/uL (0.83-4.51); Absolute Neutrophil Count 4.4 X10^3/uL (2.0-7.7); Basophil# 0.02 X10^3/uL; Basophil% 0.3 % (0-1); Eosinophil# 0.05 X10^3/uL; Eosinophils% 0.7 % (0-5); Hematocrit 44.2 % (37-47); Hemoglobin 14.2 g/dL (12.0-15.0); Lymphocyte # 1.99 X10^3/ul (0.83-4.51); Lymphocyte % 29.3 % (19-41); Mean Corp Hgb Conc 32.1 g/dL (32-36); Mean Corpuscular Hgb 28.9 pg (27.0-32.0); Mean Platelet Vol. 9.3 fl (6.2-12.0); Monocyte# 0.36 X10^3/uL; Monocyte% 5.3 % (0-10); NRBC Flagged by Analyzer 0 % (0-5); Neutrophil # 4.35 X10^3/uL (2.7-7.7); Neutrophil % 64.1 % (47-70); Platelet Count 224 K/mm3 (150-450); RBC Distribution Width CV 12.3 % (11.6-14.6); RBC Distribution Width SD 40.7 fl (35.1-43.9); Red Blood Count 4.91 M/mm3 (4.2-5.4); White Blood Count 6.8 K/mm3 (4.4-11.0)
--- NOTE | 2024-04-14 18:32 | ED.RN ---
PT IS LAUGHING, JOKING AND APPEARS CHEERFUL WHEN SHE ARRIVES INTO ROOM AND IS INSTRUCTED TO CHANGE INTO A GOWN AND URINE/BLOOD ARE OBTIANED.
--- NOTE | 2024-04-14 22:10 | ED.RN ---
WES MONCADA THIS NURSE ASKING FOR NIGHT TIME MEDS. THIS RN INFORMED WES THAT HER NURSE HAS PUT HER NIGHT TIME MEDS IN AND WAITING FOR PHARMACY TO SEND THEM.
[2024-04-14] MEDS: lamoTRIgine 100 MG Tablet 200 MG PO (22:30)
[2024-04-14] MEDS: Doxazosin 4 MG Tablet PO (22:30)
[2024-04-14] MEDS: cloZAPine 100 MG TABLET PO (22:31)
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
--- NOTE | 2024-04-15 00:29 | CM.ED ---
Social Work called Alex at [facility]. One bed available in a shared room and roommate not appropriate to share. Asked information be faxed in case of discharges tomorrow and intake team will review in the morning. Confirmed fax as [phone] and faxed referral information. [facility] - no beds, boarding patients and only have possibility of eric-psych. [facility] - at max capacity, no beds. Handoff to Crisis music assistant Shantel at [facility]. Crisis will continue to work on finding placement for patient. Faxed handoff information/referral packet to confirmed fax at [facility] . Plan: Pending inpatient psychiatric hospitalization. -BEATRIZ Elizabeth
--- NOTE | 2024-04-15 01:04 | ED.RN ---
CRISIS CALLED AT 0100, LETTING US KNOW [facility] DENIED PLACEMENT BECAUSE THE ROOM MATE WAS NOT COMPATIBLE, SO THEY ARE REFERRING PT TO [facility]. THEY DID NOTIFY US THAT IT CAN BE DIFFICULT TO CONTACT [facility] AT NIGHT SO THEY MAY NOT HAVE AN UPDATE FOR US UNTIL MORNING.
[2024-04-15 01:43] VITALS: BP 108/77; PULSE 110; RESP 16; TEMP 36.4; O2SAT 97
[2024-04-15] MEDS: Levothyroxine 25 MCG TABLET PO (06:25)
[2024-04-15 09:27] VITALS: BP 103/69; PULSE 88; RESP 18; O2SAT 100
--- NOTE | 2024-04-15 09:48 | ED.RN ---
CALLED CRISIS, DECLINED AT [facility]--NO BEDS; REFERRING TO [facility], & [facility]
[2024-04-15] MEDS: Famotidine 20 MG Tablet PO (10:48)
[2024-04-15] MEDS: Cholecalciferol (VIT D3) 25 MCG TABLET (1,000 UNITS) 50 MCG PO (10:48)
[2024-04-15] MEDS: Pantoprazole Sodium 40 MG Tablet PO (10:48)
[2024-04-15] MEDS: lamoTRIgine 100 MG Tablet 200 MG PO (10:48)
[2024-04-15] MEDS: Fluoxetine HCl 40 MG CAPSULE PO (10:48)
[2024-04-15] MEDS: Loratadine 10 MG Tablet PO (11:09)
--- NOTE | 2024-04-15 12:06 | ED.RN ---
CRISIS CALLED BACK--PENDING AT [facility] & [facility]; DENIED AT [facility]
[2024-04-15] MEDS: cloZAPine 25 MG TABLET 50 MG PO (13:28)
[2024-04-15] MEDS: LORazepam 1 MG Tablet PO (15:01)
--- NOTE | 2024-04-15 15:43 | ED.RN ---
Pt tearful, vomiting, states my anxiety is making me throw up. MD notified, PRN home anxiety medication ordered and given. Pt now states she feels much better, siting in bed smiling, coloring in book.
--- NOTE | 2024-04-15 17:11 | ED.RN ---
ok per dr. timmons to d/c sitter.
--- NOTE | 2024-04-15 17:33 | CM.ED ---
Social Work Spoke with Monica from Crisis today. Patient is being declined by multiple hospitals, on basis that current issues are more behavioral. Dsicussed whether patinet could be seen by crisis for follow up. Monica can see patient anytime on for Monday. Monica reports will get patient referred onto services patient and mother would like patient to be connected with. Declined by: [facility], [facility], and [facility]. No beds available at: [facility], [facility]. Spoke with patient's mother Heaven Chatterjee, who is also patient's legal guardian on the phone. Heaven updated. Heaven reports to feel patient can return home and indicated feeling many of patient's responses are behavioral in nature, though does acknowledge patient has emotions patient may have a hard time working through sometimes. Heaven reports agreement for patient to go to counseling and reports would like for patient to get [facility] into [facility], reporting that historically [facility] did the best with patient. Heaven chose crisis appointment at 1300 on 04.18.24, and will see Monica. Reviewed plan for safety plan. Heaven confirms no access to lethal means: no firearms, will hold patient's medications, and agrees to put up things such as forks and knives for safety. Heaven can be to hospital at 1800 today. Heaven agreeable with this senior writer calling [facility] [employer] to update. Spoke with Dr. Farrell who agrees to safety plan/discharge if the guardian is in agreement, and will look after the patient at home. Updated to guardians agreement for safety plan, putting away lethal means access, and getting the patient back into counseling. Met with patient in room. Patient observed smiling, laughing and talking in room with sitter. Patient friendly, greeting this senior writer upon entry. Patient immediately stated, that not okay to go home as what if something happens again and patient gets upset. Patient also talked of needing inpatient hospitalization because patient's uncle has cancer. Gently but firmly discussed with patient limitations of being able to find an inpatient unit to accept patient, and that responses have been that patient does not meet criteria. Discussed that patient does have identified positive coping skills, and that from some of the things patient has talked about counseling would be helpful. Let patient know that Heaven is agreeable to get patient back into counseling. Patient also wanted to know if Heaven was mad at patient and if Heaven is really okay with patient returning home. Let patient know that Heaven is agreeable, and Heaven has not stated to be mad. Talked with patient that Heaven may have some emotions about what has happened, but that Heaven cares about patient and wants patient to have help and support. Reinforced with patient the need to get back into counseling. Patient agreeable. Talked with patient about about using coping skills at the onset of warning signs, as well as role played with patient as to how patient can respond when told no or when something irritates patient. Patient smiled and laughed, stating that she loves to role play. Patient able to give appropriate responses on how to respond to others, positive coping skills, and early warning signs. Patient able to identify others she can talk to if feeling upset. Patient discussed going to work tomorrow, seeing other people and asked if this senior writer could call [employer] to come and visit patient at workshop. Patient signed safety plan, no active plans or intent for suicide are reported. Patient able to talk about multiple things which are important for patient to live for, and does not want to hurt others. Patient reports Heaven would be devastated if patient by suicide. Much encouragement given to patient. Patient tearful intermittently, but also laughing and smiling. Patient expressed thank you to geriatric social work professor. Patient understands Heaven will be to hospital at 1800 and agreeable. Patient asked about a return to work slip, which this senior writer passed on to provider. Updated nursing. Copy of safety plan for chart, one for Heaven, and one given to patient. Message left for Board [employer], Ritu Hester ([phone], extension [phone]) and left message to call this senior writer for an update. Plan: Home with supervision of patient's legal guardian, safety plan in place, crisis follow up 04.18.24. Patient will continue seeing Dr. Gabriel for medication management. -BEATRIZ Elizabeth
--- NOTE | 2024-04-15 17:47 | ED.RN ---
pt went home with safety plan
== END 2024-04-15 18:00 | disposition home or self-care (01) ==
PROVIDERS: Emergency Provider Emergency Medicine; PCP Family Medicine; Visit Provider Emergency Medicine
DX: F32.A Depression, unspecified (principal); T14.91XA Suicide attempt, initial encounter; Z63.8 Other specified problems related to primary support group; F41.9 Anxiety disorder, unspecified; K21.9 Gastro-esophageal reflux disease without esophagitis; J45.909 Unspecified asthma, uncomplicated
CPT/HCPCS: 80048; 80307; 82077; 84703; 85025; 99283

== ENCOUNTER 2024-04-23 10:04 | Outpatient (RCR) | payer MEDICAID, SELFPAY ==
[2024-04-23 11:23] LABS: Absolute Lymphocyte Count 2.25 X10^3/uL (0.83-4.51); Basophil# 0.06 X10^3/uL; Basophil% 0.5 % (0-1); Eosinophil# 0.37 X10^3/uL; Eosinophils% 3.1 % (0-5); Hematocrit 40.9 % (37-47); Hemoglobin 13.4 g/dL (12.0-15.0); Lymphocyte # 2.25 X10^3/ul (0.83-4.51); Lymphocyte % 19.1 % (19-41); Mean Corp Hgb Conc 32.8 g/dL (32-36); Mean Corpuscular Hgb 29.1 pg (27.0-32.0); Mean Corpuscular Volume 88.7 fL (81-99); Mean Platelet Vol. 9.5 fl (6.2-12.0); Monocyte# 0.99 X10^3/uL; Monocyte% 8.4 % (0-10); NRBC Flagged by Analyzer 0 % (0-5); Neutrophil # 7.98 X10^3/uL (2.7-7.7); Neutrophil % 67.9 % (47-70); Platelet Count 270 K/mm3 (150-450); RBC Distribution Width CV 12.3 % (11.6-14.6); RBC Distribution Width SD 39.6 fl (35.1-43.9); Red Blood Count 4.61 M/mm3 (4.2-5.4); White Blood Count 11.8 K/mm3 (4.4-11.0)
== END 2024-05-08 18:00 | disposition home or self-care (01) ==
LOC: LAB 10:04
PROVIDERS: PCP Family Medicine; Referring Provider Student in an Organized Health Care Education/Training Program; Visit Provider Student in an Organized Health Care Education/Training Program
DX: F31.9 Bipolar disorder, unspecified (principal); Z51.81 Encounter for therapeutic drug level monitoring
CPT/HCPCS: 36415; 85025

== ENCOUNTER 2024-05-20 13:51 | Outpatient (RCR) | payer MEDICAID, SELFPAY ==
[2024-05-20 14:59] LABS: Absolute Lymphocyte Count 3.07 X10^3/uL (0.83-4.51); Absolute Neutrophil Count 4.6 X10^3/uL (2.0-7.7); Basophil# 0.03 X10^3/uL; Basophil% 0.4 % (0-1); Eosinophil# 0.18 X10^3/uL; Eosinophils% 2.1 % (0-5); Hemoglobin 12.9 g/dL (12.0-15.0); Lymphocyte # 3.07 X10^3/ul (0.83-4.51); Lymphocyte % 36.4 % (19-41); Mean Corp Hgb Conc 31.5 g/dL (32-36); Mean Corpuscular Hgb 28.8 pg (27.0-32.0); Mean Corpuscular Volume 91.5 fL (81-99); Mean Platelet Vol. 9.9 fl (6.2-12.0); Monocyte# 0.48 X10^3/uL; Monocyte% 5.7 % (0-10); NRBC Flagged by Analyzer 0 % (0-5); Neutrophil # 4.64 X10^3/uL (2.7-7.7); Neutrophil % 54.9 % (47-70); Platelet Count 247 K/mm3 (150-450); RBC Distribution Width CV 12.4 % (11.6-14.6); RBC Distribution Width SD 41.4 fl (35.1-43.9); Red Blood Count 4.48 M/mm3 (4.2-5.4); White Blood Count 8.4 K/mm3 (4.4-11.0)
== END 2024-05-20 18:00 | disposition home or self-care (01) ==
LOC: LAB 13:51
PROVIDERS: PCP Family Medicine; Referring Provider Student in an Organized Health Care Education/Training Program; Visit Provider Student in an Organized Health Care Education/Training Program
DX: F31.9 Bipolar disorder, unspecified (principal); Z51.81 Encounter for therapeutic drug level monitoring
CPT/HCPCS: 36415; 85025

== ENCOUNTER 2024-06-20 09:31 | Outpatient (RCR) | payer MEDICAID, SELFPAY ==
[2024-06-20 10:04] LABS: Absolute Neutrophil Count 2.8 X10^3/uL (2.0-7.7); Basophil# 0.03 X10^3/uL; Basophil% 0.5 % (0-1); Eosinophil# 0.16 X10^3/uL; Eosinophils% 2.9 % (0-5); Hematocrit 42.8 % (37-47); Hemoglobin 13.3 g/dL (12.0-15.0); Lymphocyte % 36.4 % (19-41); Mean Corp Hgb Conc 31.1 g/dL (32-36); Mean Corpuscular Hgb 28.1 pg (27.0-32.0); Mean Corpuscular Volume 90.5 fL (81-99); Mean Platelet Vol. 9.7 fl (6.2-12.0); Monocyte# 0.46 X10^3/uL; Monocyte% 8.4 % (0-10); NRBC Flagged by Analyzer 0 % (0-5); Neutrophil # 2.84 X10^3/uL (2.7-7.7); Neutrophil % 51.6 % (47-70); Platelet Count 219 K/mm3 (150-450); RBC Distribution Width CV 12.6 % (11.6-14.6); RBC Distribution Width SD 41.7 fl (35.1-43.9); Red Blood Count 4.73 M/mm3 (4.2-5.4); White Blood Count 5.5 K/mm3 (4.4-11.0)
== END 2024-06-20 18:00 | disposition home or self-care (01) ==
LOC: LAB 09:31
PROVIDERS: PCP Family Medicine; Referring Provider Student in an Organized Health Care Education/Training Program; Visit Provider Student in an Organized Health Care Education/Training Program
DX: F31.9 Bipolar disorder, unspecified (principal)
CPT/HCPCS: 36415; 85025

== ENCOUNTER 2024-07-16 10:27 | Outpatient (RCR) | payer MEDICAID, SELFPAY ==
[2024-07-16 11:27] LABS: Absolute Lymphocyte Count 2.24 X10^3/uL (0.83-4.51); Absolute Neutrophil Count 2.9 X10^3/uL (2.0-7.7); Basophil# 0.02 X10^3/uL; Basophil% 0.3 % (0-1); Eosinophils% 1.7 % (0-5); Hematocrit 44.3 % (37-47); Hemoglobin 13.9 g/dL (12.0-15.0); Lymphocyte # 2.24 X10^3/ul (0.83-4.51); Lymphocyte % 38.6 % (19-41); Mean Corp Hgb Conc 31.4 g/dL (32-36); Mean Corpuscular Hgb 28.2 pg (27.0-32.0); Mean Corpuscular Volume 89.9 fL (81-99); Mean Platelet Vol. 9.4 fl (6.2-12.0); Monocyte# 0.51 X10^3/uL; Monocyte% 8.8 % (0-10); NRBC Flagged by Analyzer 0 % (0-5); Neutrophil # 2.92 X10^3/uL (2.7-7.7); Neutrophil % 50.3 % (47-70); Platelet Count 235 K/mm3 (150-450); RBC Distribution Width CV 12.8 % (11.6-14.6); RBC Distribution Width SD 42.3 fl (35.1-43.9); Red Blood Count 4.93 M/mm3 (4.2-5.4); White Blood Count 5.8 K/mm3 (4.4-11.0)
== END 2024-07-16 18:00 | disposition home or self-care (01) ==
LOC: LAB 10:27
PROVIDERS: PCP Family Medicine; Referring Provider Student in an Organized Health Care Education/Training Program; Visit Provider Student in an Organized Health Care Education/Training Program
DX: F31.9 Bipolar disorder, unspecified (principal); Z51.81 Encounter for therapeutic drug level monitoring
CPT/HCPCS: 36415; 85025

== ENCOUNTER 2024-08-12 17:20 | Outpatient (RCR) | payer MEDICAID, SELFPAY ==
[2024-08-12 17:36] LABS: Absolute Lymphocyte Count 2.77 X10^3/uL (0.83-4.51); Absolute Neutrophil Count 4.9 X10^3/uL (2.0-7.7); Basophil# 0.03 X10^3/uL; Basophil% 0.4 % (0-1); Eosinophil# 0.16 X10^3/uL; Eosinophils% 1.9 % (0-5); Hematocrit 41.4 % (37-47); Hemoglobin 13.3 g/dL (12.0-15.0); Lymphocyte # 2.77 X10^3/ul (0.83-4.51); Lymphocyte % 33.2 % (19-41); Mean Corp Hgb Conc 32.1 g/dL (32-36); Mean Corpuscular Hgb 28.5 pg (27.0-32.0); Mean Corpuscular Volume 88.7 fL (81-99); Monocyte# 0.46 X10^3/uL; Monocyte% 5.5 % (0-10); NRBC Flagged by Analyzer 0 % (0-5); Neutrophil # 4.91 X10^3/uL (2.7-7.7); Neutrophil % 58.8 % (47-70); Platelet Count 238 K/mm3 (150-450); RBC Distribution Width CV 12.7 % (11.6-14.6); RBC Distribution Width SD 41.6 fl (35.1-43.9); Red Blood Count 4.67 M/mm3 (4.2-5.4); White Blood Count 8.4 K/mm3 (4.4-11.0)
== END 2024-09-07 18:00 | disposition home or self-care (01) ==
LOC: LAB 17:20
PROVIDERS: PCP Family Medicine; Referring Provider Student in an Organized Health Care Education/Training Program; Visit Provider Student in an Organized Health Care Education/Training Program
DX: F31.9 Bipolar disorder, unspecified (principal); Z51.81 Encounter for therapeutic drug level monitoring
CPT/HCPCS: 36415; 85025

== ENCOUNTER 2024-10-08 11:23 | Outpatient (RCR) | payer MEDICAID, SELFPAY ==
[2024-09-11 14:05] LABS: Absolute Lymphocyte Count 2.57 X10^3/uL (0.83-4.51); Absolute Neutrophil Count 2.9 X10^3/uL (2.0-7.7); Basophil# 0.03 X10^3/uL; Basophil% 0.5 % (0-1); Eosinophil# 0.12 X10^3/uL; Hematocrit 41.1 % (37-47); Hemoglobin 13.2 g/dL (12.0-15.0); Lymphocyte # 2.57 X10^3/ul (0.83-4.51); Lymphocyte % 41.8 % (19-41); Mean Corp Hgb Conc 32.1 g/dL (32-36); Mean Corpuscular Hgb 28.9 pg (27.0-32.0); Mean Corpuscular Volume 89.9 fL (81-99); Mean Platelet Vol. 9.3 fl (6.2-12.0); Monocyte# 0.49 X10^3/uL; NRBC Flagged by Analyzer 0 % (0-5); Neutrophil # 2.92 X10^3/uL (2.7-7.7); Neutrophil % 47.4 % (47-70); Platelet Count 218 K/mm3 (150-450); RBC Distribution Width CV 12.7 % (11.6-14.6); Red Blood Count 4.57 M/mm3 (4.2-5.4); White Blood Count 6.2 K/mm3 (4.4-11.0)
[2024-10-08 12:07] LABS: Absolute Lymphocyte Count 2.38 X10^3/uL (0.83-4.51); Absolute Neutrophil Count 3.5 X10^3/uL (2.0-7.7); Basophil# 0.03 X10^3/uL; Basophil% 0.5 % (0-1); Eosinophil# 0.13 X10^3/uL; Hematocrit 42.2 % (37-47); Hemoglobin 13.4 g/dL (12.0-15.0); Lymphocyte # 2.38 X10^3/ul (0.83-4.51); Mean Corp Hgb Conc 31.8 g/dL (32-36); Mean Corpuscular Hgb 27.9 pg (27.0-32.0); Mean Corpuscular Volume 87.9 fL (81-99); Mean Platelet Vol. 9.3 fl (6.2-12.0); Monocyte# 0.52 X10^3/uL; Monocyte% 7.9 % (0-10); NRBC Flagged by Analyzer 0 % (0-5); Neutrophil # 3.53 X10^3/uL (2.7-7.7); Neutrophil % 53.3 % (47-70); Platelet Count 297 K/mm3 (150-450); RBC Distribution Width CV 12.4 % (11.6-14.6); RBC Distribution Width SD 40.2 fl (35.1-43.9); White Blood Count 6.6 K/mm3 (4.4-11.0)
== END 2024-10-08 18:00 | disposition home or self-care (01) ==
LOC: LAB 11:23
PROVIDERS: PCP Family Medicine; Referring Provider Student in an Organized Health Care Education/Training Program; Visit Provider Student in an Organized Health Care Education/Training Program
DX: F31.9 Bipolar disorder, unspecified (principal)
CPT/HCPCS: 36415; 85025

== ENCOUNTER 2024-11-04 09:19 | Outpatient (RCR) | payer MEDICAID, SELFPAY ==
[2024-11-04 10:50] LABS: Absolute Lymphocyte Count 2.88 X10^3/uL (0.83-4.51); Absolute Neutrophil Count 2.8 X10^3/uL (2.0-7.7); Basophil# 0.04 X10^3/uL; Basophil% 0.6 % (0-1); Eosinophils% 3.1 % (0-5); Hematocrit 40.9 % (37-47); Hemoglobin 13.6 g/dL (12.0-15.0); Lymphocyte # 2.88 X10^3/ul (0.83-4.51); Lymphocyte % 45.1 % (19-41); Mean Corp Hgb Conc 33.3 g/dL (32-36); Mean Corpuscular Hgb 29.1 pg (27.0-32.0); Mean Corpuscular Volume 87.6 fL (81-99); Mean Platelet Vol. 9.7 fl (6.2-12.0); Monocyte# 0.48 X10^3/uL; Monocyte% 7.5 % (0-10); NRBC Flagged by Analyzer 0 % (0-5); Neutrophil # 2.76 X10^3/uL (2.7-7.7); Neutrophil % 43.2 % (47-70); Platelet Count 246 K/mm3 (150-450); RBC Distribution Width CV 12.4 % (11.6-14.6); RBC Distribution Width SD 39.4 fl (35.1-43.9); Red Blood Count 4.67 M/mm3 (4.2-5.4); White Blood Count 6.4 K/mm3 (4.4-11.0)
== END 2024-11-04 18:00 | disposition home or self-care (01) ==
LOC: LAB 09:19
PROVIDERS: PCP Family Medicine; Referring Provider Student in an Organized Health Care Education/Training Program; Visit Provider Student in an Organized Health Care Education/Training Program
DX: F31.9 Bipolar disorder, unspecified (principal); Z51.81 Encounter for therapeutic drug level monitoring
CPT/HCPCS: 36415; 85025

== ENCOUNTER 2024-12-02 12:57 | Outpatient (RCR) | payer MEDICAID, SELFPAY ==
[2024-12-02 13:23] LABS: Absolute Lymphocyte Count 2.41 X10^3/uL (0.83-4.51); Absolute Neutrophil Count 2.8 X10^3/uL (2.0-7.7); Basophil# 0.03 X10^3/uL; Basophil% 0.5 % (0-1); Eosinophils% 1.8 % (0-5); Hematocrit 40.4 % (37-47); Hemoglobin 12.7 g/dL (12.0-15.0); Lymphocyte # 2.41 X10^3/ul (0.83-4.51); Lymphocyte % 42.4 % (19-41); Mean Corp Hgb Conc 31.4 g/dL (32-36); Mean Corpuscular Hgb 27.9 pg (27.0-32.0); Mean Corpuscular Volume 88.8 fL (81-99); Mean Platelet Vol. 9.3 fl (6.2-12.0); Monocyte# 0.38 X10^3/uL; Monocyte% 6.7 % (0-10); NRBC Flagged by Analyzer 0 % (0-5); Neutrophil # 2.76 X10^3/uL (2.7-7.7); Neutrophil % 48.4 % (47-70); Platelet Count 226 K/mm3 (150-450); RBC Distribution Width CV 12.2 % (11.6-14.6); RBC Distribution Width SD 39.5 fl (35.1-43.9); Red Blood Count 4.55 M/mm3 (4.2-5.4); White Blood Count 5.7 K/mm3 (4.4-11.0)
== END 2024-12-06 18:00 | disposition home or self-care (01) ==
LOC: LAB 12:57
PROVIDERS: PCP Family Medicine; Referring Provider Student in an Organized Health Care Education/Training Program; Visit Provider Student in an Organized Health Care Education/Training Program
DX: F31.9 Bipolar disorder, unspecified (principal)
CPT/HCPCS: 36415; 85025

== ENCOUNTER 2024-12-28 11:02 | Outpatient (RCR) | payer MEDICAID, SELFPAY ==
[2024-12-28 11:32] LABS: Absolute Lymphocyte Count 2.36 X10^3/uL (0.83-4.51); Absolute Neutrophil Count 7.2 X10^3/uL (2.0-7.7); Basophil# 0.04 X10^3/uL; Basophil% 0.4 % (0-1); Eosinophil# 0.07 X10^3/uL; Eosinophils% 0.7 % (0-5); Hematocrit 41.2 % (37-47); Hemoglobin 13.2 g/dL (12.0-15.0); Lymphocyte # 2.36 X10^3/ul (0.83-4.51); Lymphocyte % 22.9 % (19-41); Mean Corpuscular Hgb 28.4 pg (27.0-32.0); Mean Corpuscular Volume 88.8 fL (81-99); Mean Platelet Vol. 9.2 fl (6.2-12.0); Monocyte# 0.64 X10^3/uL; Monocyte% 6.2 % (0-10); NRBC Flagged by Analyzer 0 % (0-5); Neutrophil # 7.16 X10^3/uL (2.7-7.7); Neutrophil % 69.3 % (47-70); Platelet Count 224 K/mm3 (150-450); RBC Distribution Width CV 12.2 % (11.6-14.6); RBC Distribution Width SD 39.4 fl (35.1-43.9); Red Blood Count 4.64 M/mm3 (4.2-5.4); White Blood Count 10.3 K/mm3 (4.4-11.0)
== END 2024-12-28 18:00 | disposition home or self-care (01) ==
LOC: LAB 11:02
PROVIDERS: PCP Family Medicine; Referring Provider Student in an Organized Health Care Education/Training Program; Visit Provider Student in an Organized Health Care Education/Training Program
DX: F31.9 Bipolar disorder, unspecified (principal); Z51.81 Encounter for therapeutic drug level monitoring
CPT/HCPCS: 36415; 85025

== ENCOUNTER 2025-01-27 10:12 | Outpatient (RCR) | payer MEDICAID, SELFPAY ==
[2025-01-27 10:36] LABS: Absolute Neutrophil Count 2.8 X10^3/uL (2.0-7.7); Basophil# 0.04 X10^3/uL; Basophil% 0.7 % (0-1); Eosinophil# 0.13 X10^3/uL; Eosinophils% 2.1 % (0-5); Hematocrit 38.3 % (37-47); Hemoglobin 12.8 g/dL (12.0-15.0); Lymphocyte % 42.3 % (19-41); Mean Corp Hgb Conc 33.4 g/dL (32-36); Mean Corpuscular Hgb 28.6 pg (27.0-32.0); Mean Corpuscular Volume 85.5 fL (81-99); Mean Platelet Vol. 8.9 fl (6.2-12.0); Monocyte# 0.53 X10^3/uL; Monocyte% 8.6 % (0-10); NRBC Flagged by Analyzer 0 % (0-5); Neutrophil # 2.83 X10^3/uL (2.7-7.7); Platelet Count 277 K/mm3 (150-450); RBC Distribution Width CV 12.2 % (11.6-14.6); RBC Distribution Width SD 37.9 fl (35.1-43.9); Red Blood Count 4.48 M/mm3 (4.2-5.4); White Blood Count 6.2 K/mm3 (4.4-11.0)
== END 2025-02-05 18:00 | disposition home or self-care (01) ==
LOC: LAB 10:12
PROVIDERS: PCP Family Medicine; Referring Provider Student in an Organized Health Care Education/Training Program; Visit Provider Student in an Organized Health Care Education/Training Program
DX: Z51.81 Encounter for therapeutic drug level monitoring
CPT/HCPCS: 36415; 85025

== ENCOUNTER 2025-02-24 11:29 | Outpatient (RCR) | payer MEDICAID, SELFPAY ==
[2025-02-24 12:16] LABS: Absolute Lymphocyte Count 2.96 X10^3/uL (0.83-4.51); Absolute Neutrophil Count 3.9 X10^3/uL (2.0-7.7); Basophil# 0.03 X10^3/uL; Basophil% 0.4 % (0-1); Eosinophil# 0.09 X10^3/uL; Eosinophils% 1.2 % (0-5); Hemoglobin 13.7 g/dL (12.0-15.0); Lymphocyte # 2.96 X10^3/ul (0.83-4.51); Lymphocyte % 39.5 % (19-41); Mean Corp Hgb Conc 32.6 g/dL (32-36); Mean Corpuscular Volume 85.9 fL (81-99); Mean Platelet Vol. 9.3 fl (6.2-12.0); Monocyte# 0.47 X10^3/uL; Monocyte% 6.3 % (0-10); NRBC Flagged by Analyzer 0 % (0-5); Neutrophil # 3.92 X10^3/uL (2.7-7.7); Neutrophil % 52.2 % (47-70); Platelet Count 230 K/mm3 (150-450); RBC Distribution Width CV 12.8 % (11.6-14.6); RBC Distribution Width SD 39.9 fl (35.1-43.9); Red Blood Count 4.89 M/mm3 (4.2-5.4); White Blood Count 7.5 K/mm3 (4.4-11.0)
[2025-02-24 12:59] LABS: ALB/GLOB Ratio 1.3 RATIO (0.9-2.4); AST(SGOT) 17 U/L (<=31); Alanine Aminotransfer ALT/SGPT 12 U/L (<=34); Albumin, Serum 3.9 g/dL (3.5-5.0); Alkaline Phosphatase 53 U/L (35-104); Anion Gap 10 (5-15); BUN 7 mg/dL (4-19); BUN/Creat Ratio 8.8 RATIO (10-20); Calcium,Total 8.5 mg/dL (7.6-11.0); Carbon Dioxide 20.7 mmol/L (21.0-32.0); Chloride 108 mmol/L (98-108); Creatinine, Serum 0.83 mg/dL (0.70-1.20); EST Glomerular Filtration Rate 99 (>60); Globulin 2.9 g/dL (2.2-4.2); Glucose 96 mg/dL (70-99); Potassium 4.1 mmol/L (3.3-5.1); Protein, Total 6.7 g/dL (5.9-8.4); Sodium Level 139 mmol/L (133-145); Total Bilirubin 0.16 mg/dL (0.00-1.30)
[2025-02-26 14:08] LABS: Lamotrigine (Lamictal) Level 4.5 ug/mL (2.0-20.0)
== END 2025-02-24 18:00 | disposition home or self-care (01) ==
LOC: LAB 11:29
PROVIDERS: Psychiatry & Neurology Neurology; PCP Family Medicine; Referring Provider Student in an Organized Health Care Education/Training Program; Visit Provider Student in an Organized Health Care Education/Training Program
DX: G40.909 Epilepsy, unspecified, not intractable, without status epilepticus; Z51.81 Encounter for therapeutic drug level monitoring
CPT/HCPCS: 36415; 80053; 82140; 82542; 85025

== ENCOUNTER 2025-03-25 16:38 | Outpatient (RCR) | payer MEDICAID, SELFPAY ==
[2025-03-25 17:04] LABS: Absolute Lymphocyte Count 3.41 X10^3/uL (0.83-4.51); Absolute Neutrophil Count 1.8 X10^3/uL (2.0-7.7); Basophil# 0.03 X10^3/uL; Basophil% 0.5 % (0-1); Eosinophil# 0.11 X10^3/uL; Eosinophils% 1.9 % (0-5); Hematocrit 39.2 % (37-47); Hemoglobin 12.8 g/dL (12.0-15.0); Lymphocyte # 3.41 X10^3/ul (0.83-4.51); Lymphocyte % 58.1 % (19-41); Mean Corp Hgb Conc 32.7 g/dL (32-36); Mean Corpuscular Hgb 28.2 pg (27.0-32.0); Mean Corpuscular Volume 86.3 fL (81-99); Mean Platelet Vol. 9.5 fl (6.2-12.0); Monocyte# 0.56 X10^3/uL; Monocyte% 9.5 % (0-10); NRBC Flagged by Analyzer 0 % (0-5); Neutrophil # 1.75 X10^3/uL (2.7-7.7); Neutrophil % 29.8 % (47-70); Platelet Count 234 K/mm3 (150-450); RBC Distribution Width CV 12.6 % (11.6-14.6); RBC Distribution Width SD 39.9 fl (35.1-43.9); Red Blood Count 4.54 M/mm3 (4.2-5.4); White Blood Count 5.9 K/mm3 (4.4-11.0)
== END 2025-03-25 18:00 | disposition home or self-care (01) ==
LOC: LAB 16:38
PROVIDERS: PCP Family Medicine; Referring Provider Student in an Organized Health Care Education/Training Program; Visit Provider Student in an Organized Health Care Education/Training Program
DX: Z51.81 Encounter for therapeutic drug level monitoring; Z79.899 Other long term (current) drug therapy
CPT/HCPCS: 36415; 85025

== ENCOUNTER 2025-04-24 11:29 | Outpatient (RCR) | payer MEDICAID, SELFPAY ==
[2025-04-24 12:06] LABS: Hematocrit 41.9 % (37-47); Hemoglobin 13.7 g/dL (12.0-15.0); Mean Corp Hgb Conc 32.7 g/dL (32-36); Mean Corpuscular Volume 86.2 fL (81-99); Mean Platelet Vol. 9.1 fl (6.2-12.0); Platelet Count 275 K/mm3 (150-450); RBC Distribution Width CV 13.2 % (11.6-14.6); RBC Distribution Width SD 41.1 fl (35.1-43.9); Red Blood Count 4.86 M/mm3 (4.2-5.4); White Blood Count 8.3 K/mm3 (4.4-11.0)
[2025-04-24 13:13] LABS: Immature Granulocytes Count 0.030 X10^3/uL (0.0-0.0); NRBC Flagged by Analyzer 0 % (0-5)
== END 2025-05-08 20:43 | disposition home or self-care (01) ==
LOC: LAB 11:29
PROVIDERS: PCP Family Medicine; Referring Provider Student in an Organized Health Care Education/Training Program; Visit Provider Student in an Organized Health Care Education/Training Program
DX: Z51.81 Encounter for therapeutic drug level monitoring
CPT/HCPCS: 36415; 85025; 85027

== ENCOUNTER 2025-05-24 11:31 | Outpatient (RCR) | payer MEDICAID, SELFPAY ==
[2025-05-24 12:21] LABS: Hematocrit 42.3 % (37-47); Hemoglobin 13.9 g/dL (12.0-15.0); Mean Corp Hgb Conc 32.9 g/dL (32-36); Mean Corpuscular Volume 86.0 fL (81-99); Mean Platelet Vol. 9.2 fl (6.2-12.0); Platelet Count 248 K/mm3 (150-450); RBC Distribution Width CV 13.0 % (11.6-14.6); RBC Distribution Width SD 40.7 fl (35.1-43.9); Red Blood Count 4.92 M/mm3 (4.2-5.4); White Blood Count 7.4 K/mm3 (4.4-11.0)
== END 2025-05-24 18:00 | disposition home or self-care (01) ==
LOC: LAB 11:31
PROVIDERS: PCP Family Medicine; Referring Provider Student in an Organized Health Care Education/Training Program; Visit Provider Student in an Organized Health Care Education/Training Program
DX: Z51.81 Encounter for therapeutic drug level monitoring
CPT/HCPCS: 36415; 85027

== ENCOUNTER 2025-06-20 13:21 | Outpatient (RCR) | payer MEDICAID, SELFPAY ==
[2025-06-20 14:31] LABS: Hematocrit 39.5 % (37-47); Hemoglobin 12.9 g/dL (12.0-15.0); Mean Corp Hgb Conc 32.7 g/dL (32-36); Mean Corpuscular Volume 87.6 fL (81-99); Mean Platelet Vol. 9.8 fl (6.2-12.0); Platelet Count 232 K/mm3 (150-450); RBC Distribution Width CV 12.5 % (11.6-14.6); RBC Distribution Width SD 40.2 fl (35.1-43.9); Red Blood Count 4.51 M/mm3 (4.2-5.4); White Blood Count 6.1 K/mm3 (4.4-11.0)
[2025-06-27 18:39] LABS: Hematocrit 37.5 % (37-47); Hemoglobin 12.6 g/dL (12.0-15.0); Immature Granulocytes Count 0.010 X10^3/uL (0.0-0.0); Mean Corp Hgb Conc 33.6 g/dL (32-36); Mean Corpuscular Volume 87.0 fL (81-99); Mean Platelet Vol. 9.0 fl (6.2-12.0); NRBC Flagged by Analyzer 0 % (0-5); Platelet Count 221 K/mm3 (150-450); RBC Distribution Width CV 12.4 % (11.6-14.6); RBC Distribution Width SD 39.8 fl (35.1-43.9); Red Blood Count 4.31 M/mm3 (4.2-5.4); White Blood Count 7.3 K/mm3 (4.4-11.0)
== END 2025-07-08 18:00 | disposition home or self-care (01) ==
LOC: LAB 13:21
PROVIDERS: PCP Family Medicine; Referring Provider Student in an Organized Health Care Education/Training Program; Visit Provider Student in an Organized Health Care Education/Training Program
DX: G40.909 Epilepsy, unspecified, not intractable, without status epilepticus (principal); Z51.81 Encounter for therapeutic drug level monitoring
CPT/HCPCS: 36415; 85025; 85027

== ENCOUNTER 2025-07-21 10:30 | Outpatient (RCR) | payer MEDICAID, SELFPAY ==
[2025-07-21 11:14] LABS: Hematocrit 39.8 % (37-47); Hemoglobin 13.2 g/dL (12.0-15.0); Immature Granulocytes Count 0.010 X10^3/uL (0.0-0.0); Mean Corp Hgb Conc 33.2 g/dL (32-36); Mean Corpuscular Volume 88.8 fL (81-99); Mean Platelet Vol. 9.4 fl (6.2-12.0); NRBC Flagged by Analyzer 0 % (0-5); Platelet Count 186 K/mm3 (150-450); RBC Distribution Width CV 12.5 % (11.6-14.6); RBC Distribution Width SD 40.7 fl (35.1-43.9); Red Blood Count 4.48 M/mm3 (4.2-5.4); White Blood Count 6.2 K/mm3 (4.4-11.0)
== END 2025-07-21 18:00 | disposition home or self-care (01) ==
LOC: LAB 10:30
PROVIDERS: PCP Family Medicine; Referring Provider Student in an Organized Health Care Education/Training Program; Visit Provider Student in an Organized Health Care Education/Training Program
DX: Z51.81 Encounter for therapeutic drug level monitoring
CPT/HCPCS: 36415; 85025

== ENCOUNTER 2025-08-21 10:30 | Outpatient (RCR) | payer MEDICAID, SELFPAY ==
[2025-08-21 11:09] LABS: Hematocrit 40.5 % (37-47); Hemoglobin 13.2 g/dL (12.0-15.0); Immature Granulocytes Count 0.020 X10^3/uL (0.0-0.0); Mean Corp Hgb Conc 32.6 g/dL (32-36); Mean Corpuscular Volume 88.2 fL (81-99); Mean Platelet Vol. 9.5 fl (6.2-12.0); NRBC Flagged by Analyzer 0 % (0-5); Platelet Count 239 K/mm3 (150-450); RBC Distribution Width CV 12.6 % (11.6-14.6); RBC Distribution Width SD 40.7 fl (35.1-43.9); Red Blood Count 4.59 M/mm3 (4.2-5.4); White Blood Count 7.2 K/mm3 (4.4-11.0)
== END 2025-09-06 18:00 | disposition home or self-care (01) ==
LOC: LAB 10:30
PROVIDERS: PCP Family Medicine; Referring Provider Student in an Organized Health Care Education/Training Program; Visit Provider Student in an Organized Health Care Education/Training Program
DX: Z51.81 Encounter for therapeutic drug level monitoring (principal)
CPT/HCPCS: 36415; 85025

== ENCOUNTER 2025-09-13 10:53 | Outpatient (RCR) | payer MEDICAID, SELFPAY ==
[2025-09-13 11:12] LABS: Hematocrit 40.9 % (37-47); Hemoglobin 13.4 g/dL (12.0-15.0); Immature Granulocytes Count 0.020 X10^3/uL (0.0-0.0); Mean Corp Hgb Conc 32.8 g/dL (32-36); Mean Corpuscular Volume 88.0 fL (81-99); Mean Platelet Vol. 9.4 fl (6.2-12.0); NRBC Flagged by Analyzer 0 % (0-5); Platelet Count 215 K/mm3 (150-450); RBC Distribution Width CV 12.3 % (11.6-14.6); RBC Distribution Width SD 39.6 fl (35.1-43.9); Red Blood Count 4.65 M/mm3 (4.2-5.4); White Blood Count 7.2 K/mm3 (4.4-11.0)
== END 2025-09-13 18:00 | disposition home or self-care (01) ==
LOC: LAB 10:53
PROVIDERS: PCP Family Medicine; Referring Provider Student in an Organized Health Care Education/Training Program; Visit Provider Student in an Organized Health Care Education/Training Program
DX: Z51.81 Encounter for therapeutic drug level monitoring (principal)
CPT/HCPCS: 36415; 85025

== ENCOUNTER 2025-09-23 16:27 | Emergency (ER) | payer MEDICAID, SELFPAY ==
[2025-09-23 16:27] VITALS: BP 144/89; PULSE 112; RESP 16; TEMP 36.8; O2SAT 99; BMI 28.3
--- NOTE | 2025-09-23 16:51 | EX.ED.DYSGE1 ---
HPI History of Present Illness Chief Complaint: Suicidal [facility] Medical History Medication monitoring encounter Encounter for monitoring cardiotoxic drug therapy PTSD (post-traumatic stress disorder) Thyroid disease History of reactive attachment disorder Reactive hypoglycemia Bipolar 1 disorder ADHD alcohol spectrum disorder Anxiety Migraines GERD (gastroesophageal reflux disease) Asthma Home Medications ?Medication ?Instructions ?Recorded ?Last Taken ?Type Omeprazole [Prilosec] 40 mg PO DAILY 07/10/16 07/10/16 History cetirizine 10 mg tablet (All Day 10 mg PO DAILY 07/10/16 07/10/16 History Allergy (cetirizine)) Fish Oil 1,000 mg Softgel 500 mg PO BID 07/11/16 Unknown History cholecalciferol (vitamin D3) 25 2,000 unit PO DAILY 07/11/16 Unknown History mcg (1,000 unit) tablet (Vitamin D3) multivitamin (Daily Multiple 2 ea PO DAILY 07/11/16 Unknown History tablet) levonorgestrel-ethinyl estradiol 1 tab PO DAILY 02/25/21 Unknown History 90 mcg-20 mcg (28) tablet levothyroxine 25 mcg capsule 25 mcg PO DAILY 02/25/21 Unknown History polyethylene glycol 3350 17 gram 17 g PO DAILY 02/25/21 Unknown History oral powder packet (Miralax) rizatriptan 5 mg tablet 5 mg PO Q2H PRN HEADACHES 02/25/21 Unknown History famotidine 20 mg tablet 20 mg PO BID 09/16/22 Unknown History albuterol sulfate 90 mcg/actuation 2 puff inhalation Q6H PRN 10/24/22 Unknown History aerosol inhaler Shortness Of Breath Or Wheezing hydroxyzine HCl 25 mg tablet 25 mg PO TID PRN anxiety #90 tabs 08/16/23 Unknown Rx lamotrigine 200 mg tablet 200 mg PO BID #60 tabs 05/29/25 Unknown Rx mometasone-formoterol HFA 50 mcg-5 inhalation 05/29/25 Unknown History mcg/actuation aerosol inhaler (Dulera) clozapine 100 mg tablet See Rx Instructions .Route 08/21/25 Unknown Rx .COMPLEX #28 tabs fluoxetine 40 mg capsule See Rx Instructions .Route 08/21/25 Unknown Rx .COMPLEX #28 caps lorazepam 1 mg tablet 1 mg PO BID PRN agitation #60 tabs 08/21/25 Unknown Rx prazosin 5 mg capsule See Rx Instructions .Route 08/21/25 Unknown Rx .COMPLEX #28 caps clozapine 50 mg tablet 75 mg (1.5 x 50 mg) PO QAM 28 days 09/01/25 Unknown Rx #42 tabs Allergy/AdvReac Type Severity Reaction Status Date / Time No Known Allergies Allergy Verified 09/23/25 16:28 Family History Unknown Adopted Social History Smoking Status: Never smoker alcohol intake: never substance use type: does not use seatbelt use: always do you feel safe at home: Yes EXAM Physical Exam Const Vital Signs: 09/23/25 16:27 09/23/25 16:58 Temperature 98.2 F Temperature Source Oral Pulse Rate 112 H 92 Respiratory Rate 16 Blood Pressure 144/89 H Blood Pressure Mean 107 Pulse Ox 99 Oxygen Delivery Method [place] [facility] [place] Medical decision making narrative: HISTORY OF PRESENT ILLNESS: Chief complaint: Suicidal ideation 30-year-old history of PTSD, bipolar 1 disorder, ADHD with suicidal ideation. States the holidays are hard secondary to not have alcohol around. REVIEW OF SYSTEMS: Pertinent positives: Suicidal ideation Pertinent negatives: Auditory visual loose nations, homicidal ideation PHYSICAL EXAM: Nursing triage notes reviewed, Vital signs reviewed Constitutional: please see mdm HENT: MMM Eyes: Pupils equal round and reactive to light, Extraocular muscles intact Neck: No stridor, no JVD, full neck ROM Lungs: Clear to auscultation, No wheezing or rales. No increased work of breathing, no conversational dyspnea, no accessory muscle use, no nasal flaring. No respiratory distress noted Heart: Regular rate and rhythm, No murmurs, No rubs and No gallops, 2+ distal pulses (radial, femoral, posterior tibial) in all extremities Abdomen: Soft, there is no tenderness, rigidity, rebound or guarding, no obvious peritoneal signs, no palpable pulsatile abdominal masses, no auscultated abdominal bruit : No CVAT Extremities: No edema Neuro: No new focal neurological deficits, cranial nerves II through XII intact, 5/5 strength in all present extremities. Intact sensation to light touch in all present extremities, 2+ reflexes bilateral patella tendons. Skin: No rash or lesions noted. Psych: Good eye contact, normal affect, goal-directed thought process, does not appear to be responding to internal stimuli. MEDICAL DECISION MAKING: Chief Complaint: please see HPI External records reviewed: Evaluated for suicidal ideation. At that time a safety plan was undertaken the patient was not admitted. Factors affecting care: As per [facility] Social determinants of health: History of mental health disorder History obtained from others: Mental health staff, police/Piping Supervisor Consults: Behavioral health medical social consultant/crisis MDM Narrative: The patient was initially hemodynamically stable, afebrile and nontoxic-appearing. Exam unremarkable. Medical clearance labs were obtained. Behavioral social work was consulted. Given report of suicidal ideation pink slip was signed. ALL IMAGES (IF OBTAINED) HAVE BEEN PERSONALLY REVIEWED AND INTERPRETED BY MYSELF. CBC without leukocytosis, severe anemia, no thrombocytopenia. BMP without evidence of significant electrolyte abnormalities, no anion gap, no acute kidney injury. Serum is Urine tox screen negative Serum alcohol negative Patient was medically cleared. [place] slip and transfer form signed Awaiting crisis placement. Signed out to p.m. physician pending crisis placement. The patient and/or family, caregivers express understanding. The patient and/or family, caregivers agrees with the plan. Shared decision making: I will have a discussion with the patient and or visitors regarding risk/benefits of further testing or admission. They will be made aware of of the risk/benefits inherent in this decision they will be given the opportunity to voice understanding. Total critical care time today provided was at least 0 minutes. This excludes separately billable procedures. Critical care time (if documented) is secondary to the patient having high probability of clinically significant/life threatening deterioration in the patient's condition which required my urgent intervention. Impression: 1. Suicidal ideation 2. History of bipolar 1 disorder 3. History of depression Dispo: Transfer to inpatient psychiatric This note was generated with [employer] dictation software. It may contain incorrect words, spelling, and punctuation that were not noted in review of the chart prior to signing. Lab Data Labs: Laboratory Results - last 24 hr 09/23/25 09/23/25 16:48 17:20 WBC 6.0 RBC 4.65 Hgb 13.2 Hct 40.9 MCV 88.0 MCH 28.4 MCHC 32.3 RDW Std Deviation 39.7 RDW Coeff of Rito 12.2 Plt Count 260 MPV 9.6 Immature Gran % (Auto) 0.200 Neut % (Auto) 44.4 L Lymph % (Auto) 43.2 H Fountain % (Auto) 10.0 Eos % (Auto) 1.7 Baso % (Auto) 0.5 Absolute Neuts (auto) 2.7 Absolute Lymphs (auto) 2.60 Nucleated RBC % 0 Sodium 137 Potassium 4.4 Chloride 103 Carbon Dioxide 21.2 Anion Gap 13 BUN 11 Creatinine 0.75 Estim Creat Clear Calc 94.48 Est GFR (MDRD) Non-Af 110 BUN/Creatinine Ratio 14.1 Glucose 110 H Calcium 9.2 Serum , Qual NEGATIVE Urine Opiates Screen NEGATIVE U Buprenorphine Qual NEGATIVE Ur Oxycodone Screen NEGATIVE Urine Methadone Screen NEGATIVE Urine Fentanyl Screen NEGATIVE Ur Barbiturates Screen NEGATIVE Ur Phencyclidine Scrn NEGATIVE Ur Amphetamines Screen NEGATIVE U Benzodiazepines Scrn NEGATIVE Urine Cocaine Screen NEGATIVE U Cannabinoids Screen NEGATIVE Ethyl Alcohol < 10.1 Discharge Plan Triage Chief Complaint: Suicidal ED Provider: Torres Rudd Dx/Rx/DC Orders Prescriptions: No Action albuterol sulfate 90 mcg/actuation HFA aerosol inhaler 2 puff inhalation Q6H PRN (Reason: Shortness Of Breath Or Wheezing) hydroxyzine HCl 25 mg tablet 25 mg PO TID PRN (Reason: anxiety) Qty: 90 2RF Dulera 50-5 mcg/actuation HFA aerosol inhaler inhalation lamotrigine 200 mg tablet 200 mg PO BID Qty: 60 4RF clozapine 100 mg tablet See Rx Instructions .ROUTE .COMPLEX Qty: 28 2RF Dose Instruction: TAKE 1 TABLET BY MOUTH AT BEDTIME Rx Instructions: TAKE 1 TABLET BY MOUTH AT BEDTIME fluoxetine 40 mg capsule See Rx Instructions .ROUTE .COMPLEX Qty: 28 2RF Dose Instruction: TAKE 1 CAPSULE BY MOUTH DAILY Rx Instructions: TAKE 1 CAPSULE BY MOUTH DAILY lorazepam 1 mg tablet 1 mg PO BID PRN (Reason: agitation) Qty: 60 2RF prazosin 5 mg capsule See Rx Instructions .ROUTE .COMPLEX Qty: 28 2RF Dose Instruction: TAKE 1 CAPSULE BY MOUTH DAILY Rx Instructions: TAKE 1 CAPSULE BY MOUTH DAILY cetirizine [All Day Allergy (cetirizine)] 10 MG tablet 10 mg PO DAILY Omeprazole [Prilosec] 40 MG capsule 40 mg PO DAILY multivitamin [Daily Multiple] 1 EACH tablet 2 ea PO DAILY cholecalciferol (vitamin D3) [Vitamin D3] 1,000 UNIT tablet 2,000 unit PO DAILY Fish Oil 1,000 mg Softgel 500 mg PO BID polyethylene glycol 3350 [Miralax] 17 gram Powder In Packet 17 g PO DAILY rizatriptan 5 mg Tablet 5 mg PO Q2H PRN (Reason: HEADACHES) levonorgestrel-ethinyl estrad 90-20 mcg (28) Tablet 1 tab PO DAILY levothyroxine 25 mcg Capsule 25 mcg PO DAILY famotidine 20 mg Tablet 20 mg PO BID clozapine 50 mg tablet 75 mg PO QAM 28 Days Qty: 42 2RF Primary Care Provider: Jerry Coles Referrals: Jerry Coles MD [Primary Care Provider, Family Practice] Print Language: Marshallese
[2025-09-23 16:58] VITALS: PULSE 92
[2025-09-23 17:24] LABS: Barbiturate Urine NEGATIVE (< 200 ng/mL); Benzodiazepine Urine NEGATIVE (< 200 ng/mL); PCP Urine NEGATIVE (< 25 ng/mL); THC Urine NEGATIVE (< 50 ng/mL)
[2025-09-23 17:43] LABS: Hematocrit 40.9 % (37-47); Hemoglobin 13.2 g/dL (12.0-15.0); Immature Granulocytes Count 0.010 X10^3/uL (0.0-0.0); Mean Corp Hgb Conc 32.3 g/dL (32-36); Mean Corpuscular Volume 88.0 fL (81-99); Mean Platelet Vol. 9.6 fl (6.2-12.0); NRBC Flagged by Analyzer 0 % (0-5); Platelet Count 260 K/mm3 (150-450); RBC Distribution Width CV 12.2 % (11.6-14.6); RBC Distribution Width SD 39.7 fl (35.1-43.9); Red Blood Count 4.65 M/mm3 (4.2-5.4); White Blood Count 6.0 K/mm3 (4.4-11.0)
[2025-09-23 17:46] LABS: Internal QC Validated? YES +Cl - CLEAR BKGD; Pregnancy, Serum, hCG Quali. NEGATIVE Negative
[2025-09-23 17:53] LABS: Anion Gap 13 (5-15); BUN 11 mg/dL (4-19); BUN/Creat Ratio 14.1 RATIO (10-20); Calcium,Total 9.2 mg/dL (7.6-11.0); Carbon Dioxide 21.2 mmol/L (21.0-32.0); Chloride 103 mmol/L (98-108); Estimated Creatinine Clearance 94.48 ml/min (50-250); Glucose 110 mg/dL (70-99); Potassium 4.4 mmol/L (3.3-5.1)
[2025-09-23 18:12] LABS: Alcohol, Blood (Medical)-Serum < 10.1 mg/dL (<=10.0)
--- NOTE | 2025-09-23 18:28 | CM.ED ---
Social work 1825: medical clearance labs faxed to [facility] for placement. Beth Petersen, GENERAL CONTRACTOR, GENERAL ADMINISTRATOR
[2025-09-23 19:00] VITALS: BP 134/98; PULSE 104; RESP 20; O2SAT 100
--- NOTE | 2025-09-23 19:05 | PCA ---
[facility] denied pt due to insurance, they do not take straight medicaid.
[2025-09-23 19:54] VITALS: BP 123/84; PULSE 108; O2SAT 100
--- NOTE | 2025-09-23 20:58 | ED.RN ---
Report given to pily at [facility]. Per states that Pt has been accepted and it is ok to call for transportation.
[2025-09-23 20:59] VITALS: BP 123/84; PULSE 108; RESP 20; TEMP 36.8; O2SAT 100
--- NOTE | 2025-09-23 20:59 | CM.ED ---
Social work Per request from ED personal secretary, REID called [facility] (ph: ) and spoke with Josephine in order to get the accepting information again. [facility] [address] Nereida Patel is already completed Plan: [facility], pending transport. Beth Petersen, ARTIST'S MANAGER, CEMENT WORKER
--- NOTE | 2025-09-23 21:43 | ED.RN ---
Legal guardian updated on pt status and placement.
[2025-09-23 22:20] VITALS: PULSE 90; RESP 18; O2SAT 100
--- NOTE | 2025-09-23 22:53 | ED.RN ---
Attempted to call legal guardian for permission to treat. No answer.
== END 2025-09-24 01:55 ==
PROVIDERS: Emergency Provider Emergency Medicine; PCP Family Medicine; Visit Provider Emergency Medicine
DX: R45.851 Suicidal ideations (principal); F31.9 Bipolar disorder, unspecified; F90.9 Attention-deficit hyperactivity disorder, unspecified type; K21.9 Gastro-esophageal reflux disease without esophagitis
CPT/HCPCS: 80048; 80307; 82077; 84703; 85025; 99284